=== PATIENT | male | born 1930 | race Caucasian/White ===

== ENCOUNTER 2017-01-30 12:02 | Inpatient (IN) | payer OTHER, BC ==
[2017-01-30] MEDS ORDERED: ASPIRIN 325 MG TABLET PO ONE (12:34)
[2017-01-30] MEDS ORDERED: NITROGLYCERIN SUBLINGUAL 1/200 0.3 MG BTL SL ONE (12:40)
--- NOTE | 2017-01-30 12:40 | PDOC ---
History of Present Illness <Francesca Khan - Last Filed: 01/30/17 14:03> <David Anna - Last Filed: 01/31/17 07:26> - General Chief Complaint: Chest Pain Stated Complaint: CHEST PAIN Time Seen by Provider: 01/30/17 12:20 - History of Present Illness Initial Comments: 01/30/17 12:53 The patient is a 87-year-old male with a significant past medical history of HTN , HLD, CAD s/p stents, atrial fibrillation, long QT s/p AICD, hypothyroidism, anemia, liver disease, and dementia, who presents to the emergency department from [facility] with chest pain this morning. He reports the chest pain started last night, but worsened today after having breakfast and taking his medications. He states the chest pain is located across the chest, non-radiating , and better with sitting. He states the pain is similar to pain he had with his prior cardiac caths. Pt denies any SOB, pain with inspiration, swelling in the LEs, or abdominal pain. Pt denies headache and dizziness. Pt denies fever, chills, vomit, diarrhea and constipation. Pt denies dysuria, frequency, urgency and hematuria. Allergies: penicillins, lactose Past Surgical History: stents and pacemaker Social History: No toxic habits reported Adult Ministries Director: Dr. Catalan ( David Anna) Past History <Francesca Khan - Last Filed: 01/30/17 14:03> - Past Medical History Anemia: Yes Asthma: No Cancer: No Cardiac Disorders: Yes (PACEMAKER, Afib,CAD) COPD: No CHF: (DIASTOLIC HEART FAILURE) Dementia: Yes Diabetes: No GI Disorders: No Disorders: Yes (BPH) HTN: Yes Hypercholesterolemia: Yes Liver Disease: Yes Seizures: No Thyroid Disease: Yes (hypothyroid) - Surgical History Abdominal Surgery: Yes Appendectomy: Yes Cardiac Surgery: Yes (PACEMAKER) - Suicide/Smoking/Psychosocial Hx Smoking Status: No Smoking History: Never smoked Have you smoked in the past 12 months: No Number of Cigarettes Smoked Daily: 0 If you are a former smoker, when did you quit?: 40 YEARS AGO Hx Alcohol Use: No Drug/Substance Use Hx: No Substance Use Type: None <David Anna - Last Filed: 01/31/17 07:26> - Past Medical History Allergies/Adverse Reactions: Allergies Allergy/AdvReac Type Severity Reaction Status Date / Time Penicillins Allergy Mild Rash Verified 01/30/17 12:12 lactose Allergy Unknown Verified 01/30/17 12:12 Home Medications: Ambulatory Orders Aspirin [Aspirin EC] 81 mg PO DAILY 01/30/17 Brimonidine Tartrate [Alphagan 0.15% -] 1 drop OD TID 01/30/17 Calcium Carb/Magnesium Hydrox [Rolaids Chewable Tablet] 2 each PO Q6H PRN Calcium Citrate/Vitamin D2 [Calcium with Vit D Tablet] 1 each PO BID 01/30/17 Cholecalciferol (Vitamin D3) [Vitamin D3] 50,000 unit PO MONTHLY 01/30/17 Dorzolamide HCl [Trusopt 2%] 1 drop OD DAILY 01/30/17 Latanoprost 0.005% Eye Drops [Xalatan 0.005% Eye Drops -] 1 drop HS 01/30/17 Levothyroxine [Synthroid -] 25 mcg PO DAILY 01/30/17 Metoprolol Succinate [Toprol Xl -] 25 mg PO DAILY 01/30/17 Mineral Oil/Hydrophil Petrolat [Dermaphor Ointment] 118 gm TP DAILY 01/30/17 Nut.tx.impaired Digest Fxn [Ensure Clear] 200 ml PO DAILY 01/30/17 RX: Acetaminophen 325 mg PO PRN PRN 01/30/17 RX: Ferrous Sulfate 325 mg PO BID 01/30/17 RX: Folic Acid 1 mg PO DAILY 01/30/17 RX: Furosemide 0 mg PO DAILY 01/30/17 RX: Pravastatin Sodium 10 mg PO HS 01/30/17 RX: Simethicone 125 mg PO Q6H PRN 01/30/17 RX: Tamsulosin HCl 0.4 mg PO HS 01/30/17 Cardiac Specific PMH - Complaint Specific PMHX Pacemaker: Yes <David Anna - Last Filed: 01/31/17 07:26> Review of Systems <Francesca Khan - Last Filed: 01/30/17 14:03> <David Anna - Last Filed: 01/31/17 07:26> - Review of Systems Comments:: 01/30/17 12:54 "GENERAL/CONSTITUTIONAL: No fever or chills. No weakness. HEAD, EYES, EARS, NOSE AND THROAT: No change in vision. No ear pain or discharge. No sore throat. CARDIOVASCULAR: (+) Chest pain. No shortness of breath. RESPIRATORY: No cough, wheezing, or hemoptysis. GASTROINTESTINAL: No nausea, vomiting, diarrhea or constipation. GENITOURINARY: No dysuria, frequency, or change in urination. MUSCULOSKELETAL: No joint or muscle swelling or pain. No neck or back pain. SKIN: No rash NEUROLOGIC: No headache, vertigo, loss of consciousness, or change in strength/ sensation. ENDOCRINE: No increased thirst. No abnormal weight change. HEMATOLOGIC/LYMPHATIC: No anemia, easy bleeding, or history of blood clots. ALLERGIC/IMMUNOLOGIC: No hives or skin allergy. " (David Anna) *Physical Exam <Francesca Khan - Last Filed: 01/30/17 14:03> <David Anna - Last Filed: 01/31/17 07:26> - Vital Signs Last Vital Signs Temp Pulse Resp BP Pulse Ox 97.5 F L 73 17 120/93 100 01/31/17 06:00 01/31/17 06:00 01/31/17 06:00 01/31/17 06:00 01/30/17 22:00 - Physical Exam Comments: 01/30/17 12:54 "GENERAL: Awake, alert, and fully oriented, in no acute distress HEAD: No signs of trauma EYES: PERRLA, EOMI, sclera anicteric, conjunctiva clear ENT: Auricles normal inspection, hearing grossly normal, nares patent, oropharynx clear without exudates. Moist mucosa NECK: Nontender, no stepoffs, Normal ROM, supple, no lymphadenopathy, JVD, or masses LUNGS: Breath sounds equal, clear to auscultation bilaterally. No wheezes, and no crackles HEART: Regular rate and rhythm, normal S1 and S2, systolic ejection murmur, rubs or gallops ABDOMEN: Soft, nontender, normoactive bowel sounds. No guarding, no rebound. No masses EXTREMITIES: Normal range of motion, no edema. No clubbing or cyanosis. No cords, erythema, or tenderness NEUROLOGICAL: Cranial nerves II through XII intact. 5/5 strength and sensation in all extremities, Normal speech, normal gait SKIN: Warm, Dry, normal turgor, no rashes or lesions noted. " (David Anna) Heart Score/ECG Review <Francesca Khan - Last Filed: 01/30/17 14:03> - History History: Highly suspicious - Electrocardiogram EKG: Non specific repolarization disturbance - Age Age: >/= 65 - Risk Factors Risk Factors Heart Score: Yes Hx Hypercholesterolemia, Yes Hx Hypertension Based on the list above the patient has:: >/=3 risk factors or Hx atherosclerotic disease <David Anna - Last Filed: 01/31/17 07:26> - ECG Impressions Comment:: 01/30/17 12:35 V-paced rhythm, no COOKIE/STDs, no TWIs, unchanged since prior, rate 70. (David Anna) ED Treatment Course - LABORATORY CBC & Chemistry Diagram: 01/30/17 12:25 01/30/17 12:25 <Francesca Khan - Last Filed: 01/30/17 14:03> - LABORATORY CBC & Chemistry Diagram: 01/31/17 06:00 01/31/17 06:00 <David Anna - Last Filed: 01/31/17 07:26> - ADDITIONAL ORDERS Additional order review: 01/30/17 12:25 RBC 3.87 L MCV 90.1 MCHC 32.7 RDW 17.0 H D MPV 9.8 Neutrophils % 67.1 Lymphocytes % 13.1 Monocytes % 8.3 Eosinophils % 7.3 H D Basophils % 4.2 H D - RADIOLOGY Radiology Studies Ordered: Category Date Time Status CHEST X-RAY PORTABLE* [RAD] Stat Radiology 01/30/17 12:18 Completed - Medications Given in the ED: ED Medications Discontinued Medications Generic Name Dose Route Start Last Admin Trade Name Mack PRN Reason Stop Dose Admin Aspirin 325 mg 01/30/17 12:34 01/30/17 12:51 Asa - PO 01/30/17 12:35 325 mg ONCE ONE Administration Folic Acid 1 mg 01/30/17 14:57 01/30/17 16:45 Folic Acid - PO 01/30/17 14:58 1 mg ONCE ONE Administration Nitroglycerin 0.3 mg 01/30/17 12:40 01/30/17 13:00 Nitrostat - SL 01/30/17 12:41 Not Given ONCE ONE Nitroglycerin 0.4 mg 01/30/17 12:52 01/30/17 12:59 Nitrostat - SL 01/30/17 12:53 0.4 mg ONCE ONE Administration Medical Decision Making <Francesca Khan - Last Filed: 01/30/17 14:03> <David Anna - Last Filed: 01/31/17 07:26> - Medical Decision Making 01/30/17 13:30 Dr. Morejon was paged at 1:22pm. 01/30/17 14:03 Dr. Morejon called back and case was discussed. (Francesca Khan) 01/30/17 12:38 87 M with h/o CAD presenting with chest pain at rest, concerning for unstable angina/restenosis of stent. Pt with unchanged EKG (V-paced). No evidence of PE/ DVT on exam. No infectious symptoms to suggest PNA. No s/s volume overload/CHF. - Labs, trop - CXR - Aspirin - Cardiology consult, admit 01/30/17 13:[address] Newton, wine steward/stewardess covering for Dr. Catalan, who agrees with plan to admit to hospitalist on tele. 01/30/17 13:[address] Morejon, who has accepted pt. Will admit to inpatient tele. Case discussed in detail with admitting physician including history, physical exam and ancillary studies. Admitting physician has assumed care for the patient and will follow all pending diagnostics and complete the evaluation and treatment. (David Anna) *DC/Admit/Observation/Transfer <Francesca Khan - Last Filed: 01/30/17 14:03> - Discharge Dispostion Admit: Yes <David Anna - Last Filed: 01/31/17 07:26> Diagnosis at time of Disposition: Chest pain - Attestations Scribe Attestion: 01/30/17 13:25 Documentation prepared by Francesca Khan, acting as medical record librarians teacher for David Anna MD. (Francesca Khan) Physician Attestion: 01/31/17 07:26 I, Dr. David Anna MD, attest that this document has been prepared under my direction and personally reviewed by me in its entirety. I further attest, that it accurately reflects all work, treatment, procedures and medical decision -making performed by me. (David Anna)
[2017-01-30] MEDS ORDERED: ASPIRIN 325 MG TABLET ONE (12:41)
[2017-01-30 12:43] LABS: MCH 29.5 pg (25.7-33.7); MCHC 32.7 g/dl (32.0-35.9); MEAN CELL VOLUME 90.1 fl (80-96); MEAN PLT VOLUME 9.8 fl (7.5-11.1); PLATELET COUNT 193 K/MM3 (134-434); WHITE BLOOD COUNT 8.4 K/mm3 (4.0-10.0)
[2017-01-30] MEDS ORDERED: NITROGLYCERIN SUBLINGUAL 1/150 0.4 MG TAB ONE (12:51)
[2017-01-30] MEDS ORDERED: NITROGLYCERIN SUBLINGUAL 1/150 0.4 MG TAB SL ONE (12:52)
[2017-01-30 12:55] LABS: ALBUMIN 3.8 g/dl (3.4-5.0); ANION GAP 10 (8-16); BILIRUBIN,TOTAL 3.7 mg/dL (0.2-1.0); CALCIUM 8.8 mg/dL (8.5-10.1); CO2 28 mmol/L (21-32); CREATININE 0.9 mg/dL (0.7-1.3); GLUCOSE,RANDOM 114 mg/dL (74-106); INR 1.25 (0.82-1.09); PROTHROMBIN TIME (PATIENT) 13.8 SEC (9.98-11.88); SGPT/ALT 55 U/L (12-78); TOT PROT 7.6 g/dl (6.4-8.2)
[2017-01-30 12:57] LABS: ACTIVATED PTT 31.8 SECONDS (26.9-34.4); ALK PHOS 116 U/L (45-117); TROPONIN I < 0.02 ng/ml (0.00-0.05)
[2017-01-30 12:58] LABS: CPK 95 IU/L (39-308); SGOT/AST 120 U/L (15-37)
[2017-01-30 13:10] LABS: BASOPHIL 4.2 % (0-2.0); EOSINOPHIL 7.3 % (0-4.5); NEUTROPHILS 67.1 % (42.8-82.8)
--- NOTE | 2017-01-30 14:20 | HP ---
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 He reports the chest pain started last night, but worsened today after having breakfast and taking his medications. He states the chest pain is located across the chest, non-radiating, and better with sitting. He states the pain is similar to pain he had with his prior cardiac caths. Pt denies any SOB, pain with inspiration, swelling in the LEs, or abdominal pain. Pt denies headache and dizziness. Pt denies fever, chills, vomit, diarrhea and constipation. Pt denies dysuria, frequency, urgency and hematuria. Patient well known to Dr Catalan. Allergies: penicillins, lactose Past Surgical History: stents and pacemaker Social History: No toxic habits reported Configuration Management Administrator: Dr. 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: Dementia Cardiovascular: Yes: AFIB, Aortic Insufficiency, Aortic Stenosis, CAD, CHF, HTN Pulmonary: Yes: Other (pulmonary HTN) Hepatobiliary: Yes: Other (gilbert's syndrom) Renal/: Yes: BPH Heme/Onc: Yes: Anemia, Bleeding Disorder Endocrine: Yes: Hypothyroidism - Past Surgical History Past Surgical History: Yes: AICD - Advance Directives Advance Directives: Yes: Health Care Proxy - Smoking History Smoking history: Never smoked Have you smoked in the past 12 months: No Aproximately how many cigarettes per day: 0 If you are a former smoker, when did you quit?: 40 YEARS AGO - Alcohol/Substance Use Hx Alcohol Use: No History of Substance Use: reports: None - Social History Usual Living Arrangement: Yes: Assisted Living ADL: Support Services History of Recent Travel: No Home Medications - Allergies Allergies/Adverse Reactions: Allergies Allergy/AdvReac Type Severity Reaction Status Date / Time Penicillins Allergy Mild Rash Verified 01/30/17 12:12 lactose Allergy Unknown Verified 01/30/17 12:12 - Home Medications Home Medications: Ambulatory Orders Acetaminophen 325 mg PO PRN PRN 01/30/17 Aspirin [Aspirin EC] 81 mg PO DAILY 01/30/17 Brimonidine Tartrate [Alphagan 0.15% -] 1 drop OD TID 01/30/17 Calcium Carb/Magnesium Hydrox [Rolaids Chewable Tablet] 2 each PO Q6H PRN Calcium Citrate/Vitamin D2 [Calcium with Vit D Tablet] 1 each PO BID 01/30/17 Cholecalciferol (Vitamin D3) [Vitamin D3] 50,000 unit PO MONTHLY 01/30/17 Dorzolamide HCl [Trusopt 2%] 1 drop OD DAILY 01/30/17 Ferrous Sulfate 325 mg PO BID 01/30/17 Folic Acid 1 mg PO DAILY 01/30/17 Furosemide 0 mg PO DAILY 01/30/17 Latanoprost 0.005% Eye Drops [Xalatan 0.005% Eye Drops -] 1 drop HS 01/30/17 Levothyroxine [Synthroid -] 25 mcg PO DAILY 01/30/17 Metoprolol Succinate [Toprol Xl -] 25 mg PO DAILY 01/30/17 Mineral Oil/Hydrophil Petrolat [Dermaphor Ointment] 118 gm TP DAILY 01/30/17 Nut.tx.impaired Digest Fxn [Ensure Clear] 200 ml PO DAILY 01/30/17 Pravastatin Sodium 10 mg PO HS 01/30/17 Simethicone 125 mg PO Q6H PRN 01/30/17 Tamsulosin HCl 0.4 mg PO HS 01/30/17 Review of Systems - Review of Systems Constitutional: reports: No Symptoms Eyes: reports: No Symptoms HENT: reports: No Symptoms Neck: reports: No Symptoms Cardiovascular: reports: Chest Pain Respiratory: reports: Exercise Intolerance Gastrointestinal: reports: No Symptoms Genitourinary: reports: No Symptoms Breasts: reports: No Symptoms Reported Integumentary: reports: No Symptoms Neurological: reports: Pre-Existing Deficit Hematology/Lymphatic: reports: Easily Bruised, Other (intermittent Jaundice) Physical Examination Vital Signs: Vital Signs Temperature 97.5 F L 01/30/17 13:41 Pulse Rate 71 01/30/17 13:41 Respiratory Rate 18 01/30/17 13:41 Blood Pressure 118/74 01/30/17 13:41 O2 Sat by Pulse Oximetry (%) 100 01/30/17 13:41 Constitutional: Yes: Well Nourished, No Distress, Calm, Other (fragile) Eyes: Yes: WNL HENT: Yes: WNL, Atraumatic, Normocephalic Neck: Yes: Supple, Trachea Midline Cardiovascular: Yes: Regular Rate and Rhythm, Murmur Respiratory: Yes: Regular, CTA Bilaterally Gastrointestinal: Yes: WNL, Normal Bowel Sounds, Soft Renal/: Yes: WNL Breast(s): Yes: WNL Musculoskeletal: Yes: WNL Extremities: Yes: WNL Edema: No Peripheral Pulses WNL: Yes Integumentary: Yes: WNL Neurological: Yes: Alert, Oriented, Pre-Existing Deficit Labs: CBC, BMP 01/30/17 12:25 01/30/17 12:25 Problem List - Problems (1) Chest pain Code(s): R07.9 - CHEST PAIN, UNSPECIFIED (2) CAD (coronary artery disease) Code(s): I25.10 - ATHSCL HEART DISEASE OF [place] CORONARY ARTERY W/O ANG PCTRS (3) Atrial fibrillation Code(s): I48.91 - UNSPECIFIED ATRIAL FIBRILLATION Qualifiers: Atrial fibrillation type: chronic Qualified Code(s): I48.2 - Chronic atrial fibrillation; I48.2 - Chronic atrial fibrillation; I48.2 - Chronic atrial fibrillation; I48.2 - Chronic atrial fibrillation (4) HTN (hypertension) Code(s): I10 - ESSENTIAL (PRIMARY) HYPERTENSION (5) Anemia Code(s): D64.9 - ANEMIA, UNSPECIFIED (6) Gilbert disease Code(s): E80.4 - GILBERT SYNDROME (7) Hypothyroid Code(s): E03.9 - HYPOTHYROIDISM, UNSPECIFIED (8) BPH (benign prostatic hypertrophy) Code(s): N40.0 - BENIGN PROSTATIC HYPERPLASIA WITHOUT LOWER URINRY TRACT SYMP Assessment/Plan 87 yo with h/o HTN, HLD, CAD s/p angioplasty/mLAD stent with residual disease, atrial fibrillation, long QT with VT s/p AICD, moderate AR, moderate , moderate mr, HFpEF, phtn on O2, hypothyroidism, 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 # CP - h/o cad s/p angiplasty LAD stent, phtn, valvular/diastolic hf- . . - per cardiology - out pt lasix increased to 40 daily alternating with 80 daily, unclear if compliant. - will give trial of lasix 40 mg IV - has residual ISR of RCA and residual LAD disease that has been medically managed. - No signs of ACS. CE's neg x 2 (01/30 and 01/31). EKG paced # HFpEF with superimposed valvular disease and phtn (mod /AR/MR) - diuresis as above. - daily weights, i/o's, bmp # abn LFT -h/o Gilbert's persistent tbili > 2 -possible added elevation due to passive congestion / statins -hold Statin -follow lfts # afib - h/o bleeding epistaxis - rate controlled -continue asa / well tolerated #htn - controlled on current meds ?? - monitor and may need med adjustment #anemia - h/o hemolytic anemia - thrombocytopenia - stable --- followed at [facility] Heme/Onc # hypokalemia /eletrolye depletion - h/o prolonged qt s/p AICD - keep K > 4 - keep Mg >2 # hypothyroid - on synthroid - ck TSH
[2017-01-30] MEDS ORDERED: ACETAMINOPHEN 325 MG TABLET (FP) PO PRN (14:45)
[2017-01-30] MEDS ORDERED: FOLIC ACID 1 MG TABLET (FP) PO ONE (14:57)
[2017-01-30] MEDS ORDERED: SIMETHICONE 80 MG TAB.CHEW (FP) PO PRN (14:58)
[2017-01-30] MEDS ORDERED: NITROGLYCERIN SUBLINGUAL 1/150 0.4 MG TAB SL PRN (15:05)
[2017-01-30] MEDS ORDERED: FOLIC ACID 1 MG TABLET (FP) ONE (16:43)
[2017-01-30 18:22] VITALS: BMI 20.9
--- NOTE | 2017-01-30 18:35 | EKG ---
Test Reason : Blood Pressure : / mmHG Vent. Rate : 070 BPM Atrial Rate : 074 BPM P-R Int : 000 ms QRS Dur : 192 ms QT Int : 494 ms P-R-T Axes : 000 -79 087 degrees QTc Int : 533 ms Ventricular-paced rhythm ABNORMAL ECG WHEN COMPARED WITH ECG OF 28-JAN-2015 19:55, ELECTRONIC VENTRICULAR PACEMAKER HAS REPLACED ATRIAL FIBRILLATION CLINICAL CORRELATION IS RECOMMENDED Confirmed by CASEY MOISE MD ([id number]) on 01/30/2017 6:35:20 PM Referred By: Confirmed By:CASEY MOISE MD
[2017-01-30] MEDS: BRIMONIDINE TARTRATE 0.15% OPHTHALMIC 5 ML BOTTLE OU SCH (21:41)
[2017-01-30] MEDS: DOCUSATE SODIUM 100 MG CAPSULE (FP) PO SCH (21:41)
[2017-01-30] MEDS: FERROUS SO4 325 MG TABLET (FP) PO SCH (21:41)
[2017-01-30] MEDS: LATANOPROST 0.005% OPHTH SOLN 2.5ML BOTTLE OU SCH (21:42)
[2017-01-30] MEDS ORDERED: ATORVASTATIN CA 10 MG TABLET (FP) PO SCH (22:00)
[2017-01-31 06:12] LABS: BASOPHIL 1.5 % (0-2.0); EOSINOPHIL 5.1 % (0-4.5); MCH 29.7 pg (25.7-33.7); MCHC 33.4 g/dl (32.0-35.9); MEAN CELL VOLUME 88.8 fl (80-96); MEAN PLT VOLUME 8.6 fl (7.5-11.1); NEUTROPHILS 67.9 % (42.8-82.8); PLATELET COUNT 122 K/MM3 (134-434); WHITE BLOOD COUNT 8.7 K/mm3 (4.0-10.0)
[2017-01-31] MEDS: BRIMONIDINE TARTRATE 0.15% OPHTHALMIC 5 ML BOTTLE OU SCH ×3 (06:15→22:27)
[2017-01-31 06:41] LABS: ALBUMIN 3.5 g/dl (3.4-5.0); ALK PHOS 156 U/L (45-117); ANION GAP 9 (8-16); CALCIUM 8.5 mg/dL (8.5-10.1); CHOLESTEROL 101 mg/dL (50-200); CO2 27 mmol/L (21-32); CPK 34 IU/L (39-308); CREATININE 0.8 mg/dL (0.7-1.3); GLUCOSE,RANDOM 100 mg/dL (74-106); MAGNESIUM 2.1 mg/dL (1.8-2.4); SGOT/AST 165 U/L (15-37); SGPT/ALT 157 U/L (12-78); TROPONIN I 0.02 ng/ml (0.00-0.05)
[2017-01-31] MEDS: LEVOTHYROXINE NA 25 MCG TABLET (FP) PO SCH (07:28)
[2017-01-31] MEDS: FOLIC ACID 1 MG TABLET (FP) PO SCH (09:32)
[2017-01-31] MEDS: DOCUSATE SODIUM 100 MG CAPSULE (FP) PO SCH ×2 (09:32→22:27)
[2017-01-31] MEDS: ASPIRIN COATED 81 MG TABLET.EC PO SCH (09:32)
[2017-01-31] MEDS: FERROUS SO4 325 MG TABLET (FP) PO SCH ×2 (09:32→22:27)
[2017-01-31] MEDS: TAMSULOSIN HCL 0.4 MG CAP.ER.24H (FP) PO SCH (09:32)
[2017-01-31] MEDS: METOPROLOL SUCCINATE 25 MG TAB.SR.24H (FP) PO SCH (09:32)
[2017-01-31] MEDS: DORZOLAMIDE 2% HCL OPHTHALMIC SOLUTION 10 ML BOTTLE OU SCH (09:33)
[2017-01-31] MEDS ORDERED: FUROSEMIDE 20 MG TABLET (FP) PO SCH (10:00)
--- NOTE | 2017-01-31 11:07 | CON.CARD ---
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 States he intermittently gets this chest discomfort and it lasts a few minutes. For the past two days has occurred with increasing frequency (3 times in one day). Central CP, non-radiating, non-pleuritic. No associated symptoms. Pt denies any SOB, LE edema, orthopnea, palps, dizziness, bleeding, transient neurologic symptoms. Dr. Catalan recently (2-3 weeks ago) increased his lasix to 40 mg daily alternating with 80mg daily. However it is unclear that he is taking these doses. Is still either taking 40 mg daily or 20 mg daily. curretnly cp free. Denies abdominal pain, headache, dizziness, fever, chills, sweats, nausea, vomit, diarrhea, rashes, visual disturbances. Security Rep: Dr. Catalan PMHx: per hpi Past Surgical History: per hpi Social History: former smoker, lives in assisted living. fam hx: no family h/o premature cad. ros: per hpi Ambulatory Orders Acetaminophen 325 mg PO PRN PRN 01/30/17 Aspirin [Aspirin EC] 81 mg PO DAILY 01/30/17 Brimonidine Tartrate [Alphagan 0.15% -] 1 drop OD TID 01/30/17 Calcium Carb/Magnesium Hydrox [Rolaids Chewable Tablet] 2 each PO Q6H PRN Calcium Citrate/Vitamin D2 [Calcium with Vit D Tablet] 1 each PO BID 01/30/17 Cholecalciferol (Vitamin D3) [Vitamin D3] 50,000 unit PO MONTHLY 01/30/17 Dorzolamide HCl [Trusopt 2%] 1 drop OD DAILY 01/30/17 Ferrous Sulfate 325 mg PO BID 01/30/17 Folic Acid 1 mg PO DAILY 01/30/17 Furosemide 0 mg PO DAILY 01/30/17 Latanoprost 0.005% Eye Drops [Xalatan 0.005% Eye Drops -] 1 drop HS 01/30/17 Levothyroxine [Synthroid -] 25 mcg PO DAILY 01/30/17 Metoprolol Succinate [Toprol Xl -] 25 mg PO DAILY 01/30/17 Mineral Oil/Hydrophil Petrolat [Dermaphor Ointment] 118 gm TP DAILY 01/30/17 Nut.tx.impaired Digest Fxn [Ensure Clear] 200 ml PO DAILY 01/30/17 Pravastatin Sodium 10 mg PO HS 01/30/17 Simethicone 125 mg PO Q6H PRN 01/30/17 Tamsulosin HCl 0.4 mg PO HS 01/30/17 Current Medications Acetaminophen (Tylenol -) 650 mg PO Q6H PRN PRN Reason: FEVER OR PAIN Aspirin (Ecotrin -) 81 mg PO DAILY [facility] Last Admin: 01/31/17 09:32 Dose: 81 mg Atorvastatin Calcium (Lipitor -) 10 mg PO HS [facility] Last Admin: 01/30/17 21:41 Dose: 10 mg Brimonidine Tartrate (Alphagan 0.15% -) 1 drop OU TID [facility] Last Admin: 01/31/17 06:15 Dose: 1 drop Docusate Sodium (Colace -) 100 mg PO BID [facility] Last Admin: 01/31/17 09:32 Dose: 100 mg Dorzolamide HCl (Trusopt 2%) 1 drop OU DAILY [facility] Stop: 02/02/17 23:59 Last Admin: 01/31/17 09:33 Dose: 1 drop Ferrous Sulfate (Feosol -) 325 mg PO BID [facility] Last Admin: 01/31/17 09:32 Dose: 325 mg Folic Acid (Folic Acid -) 1 mg PO DAILY [facility] Last Admin: 01/31/17 09:32 Dose: 1 mg Furosemide (Lasix -) 20 mg PO DAILY [facility] Last Admin: 01/31/17 09:32 Dose: 20 mg Latanoprost (Xalatan 0.005% Eye Drops -) 1 drop OU HS [facility] Stop: 02/02/17 23:59 Last Admin: 01/30/17 21:42 Dose: 1 drop Levothyroxine Sodium (Synthroid -) 25 mcg PO DAILY@0700 [facility] Last Admin: 01/31/17 07:28 Dose: 25 mcg Metoprolol Succinate (Toprol Xl -) 25 mg PO DAILY [facility] Last Admin: 01/31/17 09:32 Dose: 25 mg Nitroglycerin (Nitrostat -) 0.4 mg SL Q5M PRN PRN Reason: FOR CHEST PAIN Simethicone (Mylicon -) 80 mg PO Q4H PRN PRN Reason: GAS Tamsulosin HCl (Flomax -) 0.4 mg PO DAILY@0830 [facility] Last Admin: 01/31/17 09:32 Dose: 0.4 mg Vital Signs - 24 hr 01/30/17 01/30/17 01/30/17 12:12 12:15 13:41 Temperature 97.5 F L 97.5 F L Pulse Rate 77 Pulse Rate [ 71 Apical] Respiratory 18 18 Rate Blood Pressure 138/88 Blood Pressure 118/74 [Right Arm] O2 Sat by Pulse 98 100 100 Oximetry (%) 01/30/17 01/30/17 01/30/17 13:57 17:31 21:00 Temperature 98.4 F 97.6 F Pulse Rate 74 70 Pulse Rate [ 70 Apical] Respiratory 18 18 18 Rate Blood Pressure 141/86 131/93 Blood Pressure 118/68 [Right Arm] O2 Sat by Pulse 100 97 Oximetry (%) 01/30/17 01/31/17 01/31/17 22:00 01:00 06:00 Temperature 97.5 F L Pulse Rate 71 73 Pulse Rate [ Apical] Respiratory 20 18 17 Rate Blood Pressure 160/96 155/83 120/93 Blood Pressure [Right Arm] O2 Sat by Pulse 100 Oximetry (%) 01/31/17 01/31/17 08:30 10:00 Temperature 97.8 F Pulse Rate 70 Pulse Rate [ Apical] Respiratory 16 Rate Blood Pressure 111/69 Blood Pressure [Right Arm] O2 Sat by Pulse 99 Oximetry (%) Intake & Output 01/29/17 01/30/17 01/31/17 02/01/17 07:59 07:59 07:59 07:59 Intake Total 120 Output Total 600 600 Balance -480 -600 Weight 139 lb 11.2 oz nad, calm jvd elevated, neck supple bibasilar rales, nl effort rrr nl s1, s2 2/6 murmur throughout precordium and at apex. + bs soft nt nd ext without e/c/c + dp/pt no carotid bruits aaox3 no jaundice, diaphoresis. CBC, BMP 01/31/17 06:00 01/31/17 06:00 Laboratory Tests 01/30/17 01/31/17 12:25 06:00 Troponin I < 0.02 0.02 Albumin 3.5 ekg: v-paced tele: v-paced with ectopy. cxr 01/30: rul scarring. no acute pathology (by my review, likely congestion) cxr 01/31: by my review. - worsened congestion with fluid in fissure and likely effusions with blunting of costophrenic angle. LHC 12/06 no LMCA dz; 30-50% pLAD. 80-90% mLAD, calcified; 70-80% oRCA, calcified; mild OM1; s/p xience to mLAD (no intervention on RCA). mild AI LHC 09/05 ([facility]): 90% mLAD, 80% oRCA, 50% LCX and mRCA; severe LV dysfunction; s/p PTCA/cutting balloon angioplasty to LAD and RCA MIBI 12/06 (): persantine--no STs; small area anteroapical isch; fixed IW with small area inferoapical reversibility--? isch; NORMAL EF Echo 04/2016: 1. The left ventricular size is normal. 2. Overall left ventricular systolic function is low-normal with, an EF between 50 - 55 %. 3. No regional wall motion abnormalities were noted. 4. The right ventricle is moderately enlarged. 5. The right ventricular systolic function is at the low end of normal. 6. Left atrium is moderately dilated by volume. 7. The right atrium is mildly enlarged. 8. Electronic pacemaker lead seen in the RA and RV cavities. The RA pacemaker wire is highly mobile, with possible mobile echodensity adherent to it. This structure is potentially consistent with fibrinous strand but vegetation cannot be excluded. 9. Aortic valve is severely thickened. 10. There is mild aortic regurgitation. 11. Moderate aortic stenosis. 12. Moderate mitral regurgitation is present, eccentric jet (anteriorly directed ); possibly 2 jets. 13. Moderate tricuspid regurgitation present. 14. There is severe pulmonary hypertension. 15. The right ventricular systolic pressure, as measured by Doppler, is at least 91 mmHg, assuming RA pressure of 7 mmHg (TR signal is cut off). 16. The aortic root is mildy dilated (4.1cm). Laminar, non-complex (< 4mm), atherosclerotic plaque(s) located in the aortic arch. 17. Normal inferior vena cava with less than 50% inspiratory collapse consistent with mildly estimated right atrial pressure (approximately 10 mmHg). A/P 87 yo with h/o HTN, HLD, CAD s/p angioplasty/mLAD stent with residual disease, atrial fibrillation, long QT with VT s/p AICD, moderate AR, moderate , moderate mr, HFpEF, phtn on O2, hypothyroidism, hemolytic anemia (followed at [facility] for Hem), elevated bili due to [place]', thrombocytopenia, bph and mild dementia who p/w CP. CP - h/o cad, phtn, valvular/diastolic heart failure - which all may be contributing to chest discomfort. . - Recently outpatient lasix increased to 40 daily alternating with 80 daily, unclear if patient made these changes. Appears volume overloaded, will give trial of lasix 40 mg IV x 1 and reevaluate in am. May need uptitration to bid dosing. new lft abnormalities may be due to hepatic congestion, reevaluate in am. Note, tbili elevated > 3.0 even on last sjr labs (2014) potassium repletion - has residual ISR of RCA and residual LAD disease that has been medically managed. No signs of ACS. CE's neg x 2 (01/30 and 01/31). EKG Vpaced. uptitration of anti-anginals has been limited by low blood pressures in the past. Would avoid ranexa b/c of qt prolongation potential. Will try low dose norvasc with close monitoring of bp's. HFpEF with superimposed valvular disease and phtn (mod /AR/MR) - diuresis as above. 134 lbs at last office visit when euvolemic. - bp/hr well controlled. - Can defer repeat echo if clinical status improves. - daily standing weights, i/o's, bmp CAD s/p angioplasty/mLAD stent with residual disease - -residual dz: 70-80% ostial RCA (deferred due to pt with acute agitation during cath); 30-50% pLAD - con't asa, uptitration of anti-anginals as above. - on pravastatin 10 mg on 5 days a week. In light of acute lft elevation, hold for now and resume when improving. PMVT/torsades--? h/o long QT prior (? culprit meds); QT was profoundly prolonged (>600 msec) on presentation; s/p ICD, no shocks; - last ICD check 09/2016, LRL likely 70. con't outpatient monitoring. - aggressive lyte repletion, K > 4.0, mg > 2.0. avoid qt prolonging drugs. Afib - no h/o CVA/TIA; not a candidate for AC due to recurrent epistaxis, on ASA - currently rate controlled on low dose metoprolol HTN - can be labile, meds as above. close monitoring. mod dil ao root (4.1cm) - con't bb thrombocytopenia/anemia - stable, con't to monitor
[2017-01-31] MEDS ORDERED: POTASSIUM CHLORIDE TABS 20 MEQ TABLET.ER (FP) PO ONE ×2 (11:45→16:18)
--- NOTE | 2017-01-31 15:25 | EKG ---
Test Reason : Blood Pressure : / mmHG Vent. Rate : 070 BPM Atrial Rate : 052 BPM P-R Int : 000 ms QRS Dur : 188 ms QT Int : 494 ms P-R-T Axes : 000 -82 070 degrees QTc Int : 533 ms Ventricular-paced rhythm ABNORMAL ECG WHEN COMPARED WITH ECG OF 30-JAN-2017 12:07, NO SIGNIFICANT CHANGE WAS FOUND Confirmed by CASEY MOISE MD ([id number]) on 01/31/2017 3:25:06 PM Referred By: Augustin OLEARY Confirmed By:CASEY MOISE MD
[2017-01-31] MEDS ORDERED: FUROSEMIDE 40 MG/4 ML INJECTABLE VIAL IVPUSH ONE (16:16)
[2017-01-31] MEDS ORDERED: PT OWN MED DRAWER 7, Y5N ONE ×2 (22:23→22:35)
[2017-01-31] MEDS: LATANOPROST 0.005% OPHTH SOLN 2.5ML BOTTLE OU SCH (22:29)
--- NOTE | 2017-01-31 22:52 | PN ---
Progress Note (short form) - Note Progress Note: patient seen and examined in bed. States CP resolved, denies SOB / diaphoresis / reports pain lasted many hours -- started day prior to admission and resolved late yesterday - unable to provide time or treatment responsible for alleviation of cp. Today reports feeling well - no cp or sob O2 in place Vital Signs Period Temp Pulse Resp BP Sys/Fox Pulse Ox Last 24 Hr 97.5 F-98.9 F 70-73 16-18 111-155/66-107 98-99 NAD / mild jaundice neck supple heart S1/S2 regular lungs clear bilat abd soft non tender ext DVT boots in place no edema / no cyanosis CBC, BMP 01/31/17 06:00 01/31/17 06:00 Intake & Output 01/28/17 01/29/17 01/30/17 01/31/17 23:59 23:59 23:59 23:59 Intake Total 370 Output Total 300 1150 Balance -300 -780 Weight 141 lb 7 oz 139 lb 11.2 oz Active Medications Acetaminophen (Tylenol -) 650 mg PO Q6H PRN PRN Reason: FEVER OR PAIN Amlodipine Besylate (Norvasc -) 2.5 mg PO DAILY [facility] Aspirin (Ecotrin -) 81 mg PO DAILY [facility] Last Admin: 01/31/17 09:32 Dose: 81 mg Brimonidine Tartrate (Alphagan 0.15% -) 1 drop OU TID [facility] Last Admin: 01/31/17 14:20 Dose: 1 drop Docusate Sodium (Colace -) 100 mg PO BID [facility] Last Admin: 01/31/17 09:32 Dose: 100 mg Dorzolamide HCl (Trusopt 2%) 1 drop OU DAILY [facility] Stop: 02/02/17 23:59 Last Admin: 01/31/17 09:33 Dose: 1 drop Ferrous Sulfate (Feosol -) 325 mg PO BID [facility] Last Admin: 01/31/17 09:32 Dose: 325 mg Folic Acid (Folic Acid -) 1 mg PO DAILY [facility] Last Admin: 01/31/17 09:32 Dose: 1 mg Furosemide (Lasix Injection -) 40 mg IVPUSH DAILY [facility] Latanoprost (Xalatan 0.005% Eye Drops -) 1 drop OU HS [facility] Stop: 02/02/17 23:59 Last Admin: 01/30/17 21:42 Dose: 1 drop Levothyroxine Sodium (Synthroid -) 25 mcg PO DAILY@0700 [facility] Last Admin: 01/31/17 07:28 Dose: 25 mcg Metoprolol Succinate (Toprol Xl -) 25 mg PO DAILY [facility] Last Admin: 01/31/17 09:32 Dose: 25 mg Nitroglycerin (Nitrostat -) 0.4 mg SL Q5M PRN PRN Reason: FOR CHEST PAIN Simethicone (Mylicon -) 80 mg PO Q4H PRN PRN Reason: GAS Tamsulosin HCl (Flomax -) 0.4 mg PO DAILY@0830 [facility] Last Admin: 01/31/17 09:32 Dose: 0.4 mg 87 yo with h/o HTN, HLD, CAD s/p angioplasty/mLAD stent with residual disease, atrial fibrillation, long QT with VT s/p AICD, moderate AR, moderate , moderate mr, HFpEF, phtn on O2, hypothyroidism, hemolytic anemia (followed at [facility] for Hem), elevated bili due to [place]', thrombocytopenia, bph and mild dementia who p/w CP. # CP - h/o cad s/p angiplasty LAD stent, phtn, valvular/diastolic hf- . . - per cardiology - out patient lasix increased to 40 daily alternating with 80 daily, unclear if compliant. - given trial of lasix 40 mg IV x 1 today - has residual ISR of RCA and residual LAD disease that has been medically managed. - No signs of ACS. CE's neg x 2 (01/30 and 01/31). EKG paced # HFpEF with superimposed valvular disease and phtn (mod /AR/MR) - diuresis as above. - daily weights, i/o's, bmp # abn LFT -h/o Gilbert's persistent tbili > 2 -possible added elevation due to passive congestion / statins -hold Statin -follow lfts # afib - h/o bleeding epistaxis - rate controlled -continue asa / well tolerated #htn - controlled on current meds ?? - monitor and may need med adjustment #anemia - h/o hemolytic anemia - thrombocytopenia - stable --- followed at [facility] # hypokalemia /eletrolye depletion - h/o prolonged qt s/p AICD - keep K > 4 - keep Mg >2 # hypothyroid - on synthroid - ck TSH Problem List - Problems (1) Chest pain Code(s): R07.9 - CHEST PAIN, UNSPECIFIED (2) CAD (coronary artery disease) Code(s): I25.10 - ATHSCL HEART DISEASE OF [place] CORONARY ARTERY W/O ANG PCTRS (3) HTN (hypertension) Code(s): I10 - ESSENTIAL (PRIMARY) HYPERTENSION (4) Atrial fibrillation Code(s): I48.91 - UNSPECIFIED ATRIAL FIBRILLATION Qualifiers: Atrial fibrillation type: chronic Qualified Code(s): I48.2 - Chronic atrial fibrillation; I48.2 - Chronic atrial fibrillation; I48.2 - Chronic atrial fibrillation; I48.2 - Chronic atrial fibrillation (5) BPH (benign prostatic hypertrophy) Code(s): N40.0 - BENIGN PROSTATIC HYPERPLASIA WITHOUT LOWER URINRY TRACT SYMP (6) Anemia Code(s): D64.9 - ANEMIA, UNSPECIFIED (7) Gilbert disease Code(s): E80.4 - GILBERT SYNDROME (8) Hypothyroid Code(s): E03.9 - HYPOTHYROIDISM, UNSPECIFIED
[2017-02-01 05:57] LABS: MCH 29.5 pg (25.7-33.7); MCHC 32.8 g/dl (32.0-35.9); MEAN CELL VOLUME 90.1 fl (80-96); MEAN PLT VOLUME 9.6 fl (7.5-11.1); PLATELET COUNT 126 K/MM3 (134-434); RDW 16.9 % (11.9-15.9); WHITE BLOOD COUNT 9.5 K/mm3 (4.0-10.0)
[2017-02-01] MEDS ORDERED: PT OWN MED DRAWER 7, Y5N ONE ×5 (06:34→22:14)
[2017-02-01] MEDS: LEVOTHYROXINE NA 25 MCG TABLET (FP) PO SCH (06:36)
[2017-02-01] MEDS: BRIMONIDINE TARTRATE 0.15% OPHTHALMIC 5 ML BOTTLE OU SCH ×3 (06:36→22:16)
[2017-02-01 06:40] LABS: ANION GAP 8 (8-16); CALCIUM 8.6 mg/dL (8.5-10.1); CO2 28 mmol/L (21-32); CREATININE 0.9 mg/dL (0.7-1.3); GLUCOSE,RANDOM 96 mg/dL (74-106); MAGNESIUM 2.1 mg/dL (1.8-2.4)
[2017-02-01 06:49] LABS: THYROID STIMULATING HORMONE 2.48 uIU/ml (0.358-3.74)
[2017-02-01] MEDS: TAMSULOSIN HCL 0.4 MG CAP.ER.24H (FP) PO SCH (07:48)
[2017-02-01] MEDS: FERROUS SO4 325 MG TABLET (FP) PO SCH ×2 (09:49→22:16)
[2017-02-01] MEDS: FOLIC ACID 1 MG TABLET (FP) PO SCH (09:49)
[2017-02-01] MEDS: ASPIRIN COATED 81 MG TABLET.EC PO SCH (09:49)
[2017-02-01] MEDS: DOCUSATE SODIUM 100 MG CAPSULE (FP) PO SCH ×2 (09:49→22:16)
[2017-02-01] MEDS: METOPROLOL SUCCINATE 25 MG TAB.SR.24H (FP) PO SCH (09:49)
[2017-02-01] MEDS: DORZOLAMIDE 2% HCL OPHTHALMIC SOLUTION 10 ML BOTTLE OU SCH (09:49)
[2017-02-01] MEDS ORDERED: FUROSEMIDE 40 MG/4 ML INJECTABLE VIAL IVPUSH SCH (10:00)
[2017-02-01] MEDS ORDERED: amLODIPine BESYLATE 2.5 MG TABLET (FP) PO SCH (10:00)
[2017-02-01 11:05] LABS: ALBUMIN 3.8 g/dl (3.4-5.0); ALK PHOS 179 U/L (45-117); BILIRUBIN,DIRECT 0.5 mg/dL (0.0-0.2); BILIRUBIN,TOTAL 5.4 mg/dL (0.2-1.0); SGOT/AST 107 U/L (15-37); SGPT/ALT 134 U/L (12-78); TOT PROT 7.3 g/dl (6.4-8.2)
--- NOTE | 2017-02-01 11:44 | PN ---
Progress Note (short form) - Note Progress Note: Chief Complaint: chest pain S: remains cp free. no sob, palps, dizziness. given lasix 40 mg IV x 1 yesterday. started on low dose norvasc 2.5 mg this morning as anti-anginal. Current Medications Acetaminophen (Tylenol -) 650 mg PO Q6H PRN PRN Reason: FEVER OR PAIN Amlodipine Besylate (Norvasc -) 2.5 mg PO DAILY [facility] Last Admin: 02/01/17 09:49 Dose: 2.5 mg Aspirin (Ecotrin -) 81 mg PO DAILY [facility] Last Admin: 02/01/17 09:49 Dose: 81 mg Brimonidine Tartrate (Alphagan 0.15% -) 1 drop OU TID [facility] Last Admin: 02/01/17 06:36 Dose: 1 drop Docusate Sodium (Colace -) 100 mg PO BID [facility] Last Admin: 02/01/17 09:49 Dose: 100 mg Dorzolamide HCl (Trusopt 2%) 1 drop OU DAILY [facility] Stop: 02/02/17 23:59 Last Admin: 02/01/17 09:49 Dose: 1 drop Ferrous Sulfate (Feosol -) 325 mg PO BID [facility] Last Admin: 02/01/17 09:49 Dose: 325 mg Folic Acid (Folic Acid -) 1 mg PO DAILY [facility] Last Admin: 02/01/17 09:49 Dose: 1 mg Furosemide (Lasix Injection -) 40 mg IVPUSH DAILY [facility] Last Admin: 02/01/17 09:49 Dose: 40 mg Latanoprost (Xalatan 0.005% Eye Drops -) 1 drop OU HS [facility] Stop: 02/02/17 23:59 Last Admin: 01/31/17 22:29 Dose: 1 drop Levothyroxine Sodium (Synthroid -) 25 mcg PO DAILY@0700 [facility] Last Admin: 02/01/17 06:36 Dose: 25 mcg Metoprolol Succinate (Toprol Xl -) 25 mg PO DAILY [facility] Last Admin: 02/01/17 09:49 Dose: 25 mg Nitroglycerin (Nitrostat -) 0.4 mg SL Q5M PRN PRN Reason: FOR CHEST PAIN Simethicone (Mylicon -) 80 mg PO Q4H PRN PRN Reason: GAS Tamsulosin HCl (Flomax -) 0.4 mg PO DAILY@0830 [facility] Last Admin: 02/01/17 07:48 Dose: 0.4 mg Vital Signs - 24 hr 01/31/17 01/31/17 01/31/17 13:18 18:00 20:11 Temperature 98.4 F 98.9 F Pulse Rate 70 70 70 Respiratory 18 16 18 Rate Blood Pressure 112/66 147/107 123/81 O2 Sat by Pulse 98 Oximetry (%) 01/31/17 02/01/17 02/01/17 22:45 00:16 04:00 Temperature Pulse Rate 72 74 70 Respiratory 16 18 18 Rate Blood Pressure 142/89 137/79 128/73 O2 Sat by Pulse Oximetry (%) 02/01/17 02/01/17 02/01/17 05:38 09:00 09:48 Temperature 97.9 F 97.7 F Pulse Rate 70 70 82 Respiratory 18 18 Rate Blood Pressure 127/85 119/82 O2 Sat by Pulse 100 96 Oximetry (%) Intake & Output 01/30/17 01/31/17 02/01/17 02/02/17 07:59 07:59 07:59 07:59 Intake Total 120 380 Output Total 600 1150 Balance -480 -770 Weight 139 lb 11.2 oz 134 lb 12.8 oz nad, calm jvd elevated, neck supple bibasilar rales, nl effort rrr nl s1, s2 2/6 murmur throughout precordium and at apex. + bs soft nt nd ext without e/c/c + dp/pt no carotid bruits aaox3 no jaundice, diaphoresis. CBC, BMP 02/01/17 05:00 02/01/17 05:00 Laboratory Tests 02/01/17 05:00 Total Bilirubin 5.4 H D Direct Bilirubin 0.5 H D AST 107 H D ALT 134 H Alkaline Phosphatase 179 H Albumin 3.8 TSH 2.48 D ekg: v-paced tele: v-paced with intermittent afib, vr 80's. cxr 01/30: rul scarring. no acute pathology (by my review, likely congestion) cxr 01/31: by my review. - worsened congestion with fluid in fissure and likely effusions with blunting of costophrenic angle. LHC 12/06 no LMCA dz; 30-50% pLAD. 80-90% mLAD, calcified; 70-80% oRCA, calcified; mild OM1; s/p xience to mLAD (no intervention on RCA). mild AI LHC 09/05 ([facility]): 90% mLAD, 80% oRCA, 50% LCX and mRCA; severe LV dysfunction; s/p PTCA/cutting balloon angioplasty to LAD and RCA MIBI 12/06 (): persantine--no STs; small area anteroapical isch; fixed IW with small area inferoapical reversibility--? isch; NORMAL EF Echo 04/2016: 1. The left ventricular size is normal. 2. Overall left ventricular systolic function is low-normal with, an EF between 50 - 55 %. 3. No regional wall motion abnormalities were noted. 4. The right ventricle is moderately enlarged. 5. The right ventricular systolic function is at the low end of normal. 6. Left atrium is moderately dilated by volume. 7. The right atrium is mildly enlarged. 8. Electronic pacemaker lead seen in the RA and RV cavities. The RA pacemaker wire is highly mobile, with possible mobile echodensity adherent to it. This structure is potentially consistent with fibrinous strand but vegetation cannot be excluded. 9. Aortic valve is severely thickened. 10. There is mild aortic regurgitation. 11. Moderate aortic stenosis. 12. Moderate mitral regurgitation is present, eccentric jet (anteriorly directed ); possibly 2 jets. 13. Moderate tricuspid regurgitation present. 14. There is severe pulmonary hypertension. 15. The right ventricular systolic pressure, as measured by Doppler, is at least 91 mmHg, assuming RA pressure of 7 mmHg (TR signal is cut off). 16. The aortic root is mildy dilated (4.1cm). Laminar, non-complex (< 4mm), atherosclerotic plaque(s) located in the aortic arch. 17. Normal inferior vena cava with less than 50% inspiratory collapse consistent with mildly estimated right atrial pressure (approximately 10 mmHg). A/P 87 yo with h/o HTN, HLD, CAD s/p angioplasty/mLAD stent with residual disease, atrial fibrillation, long QT with VT s/p AICD, moderate AR, moderate , moderate mr, HFpEF, phtn on O2, hypothyroidism, hemolytic anemia (followed at [facility] for Hem), elevated bili due to [place]', thrombocytopenia, bph and mild dementia who p/w CP. CP - h/o cad, phtn, valvular/diastolic heart failure - which all may be contributing to chest discomfort. . - has residual ISR of RCA and residual LAD disease that has been medically managed. No signs of ACS. CE's neg x 2 (01/30 and 01/31). EKG Vpaced. uptitration of anti-anginals has been limited by low blood pressures in the past. Would avoid ranexa b/c of qt prolongation potential. Will try low dose norvasc with close monitoring of bp's. If bp drops, can consider bid metoprolol instead of norvasc. - Recently outpatient lasix increased to 40 daily alternating with 80 daily, unclear if patient made these changes. HFpEF with superimposed valvular disease and phtn (mod /AR/MR) - 134 lbs at last office visit when euvolemic. Unfortunately can only get bed weights here. ? accuracy. - bp/hr well controlled. - 01/31 Appears volume overloaded, will give trial of lasix 40 mg IV x 1 and reevaluate in am. May need uptitration to bid dosing. new lft abnormalities may be due to hepatic congestion, reevaluate in am. Note, tbili elevated > 3.0 even on last sjr labs (2014) potassium repletion - 02/01: Still with pulmonary edema on exam. Will increase lasix to 40 mg IV BID today, (may be able to decrease back to daily tomorrow). LFT's somewhat improved. tbili continues to rise (primarily indirect). Will repeat echo. - daily standing weights when possible, i/o's, bmp CAD s/p angioplasty/mLAD stent with residual disease - -residual dz: 70-80% ostial RCA (deferred due to pt with acute agitation during cath); 30-50% pLAD - con't asa, uptitration of anti-anginals as above. - on pravastatin 10 mg on 5 days a week. In light of acute lft elevation, hold for now and resume when improving. PMVT/torsades--? h/o long QT prior (? culprit meds); QT was profoundly prolonged (>600 msec) on presentation; s/p ICD, no shocks; - last ICD check 09/2016, LRL likely 70. con't outpatient monitoring. - aggressive lyte repletion, K > 4.0, mg > 2.0. avoid qt prolonging drugs. Afib - no h/o CVA/TIA; not a candidate for AC due to recurrent epistaxis, on ASA - currently rate controlled on low dose metoprolol HTN - can be labile, meds as above. close monitoring. mod dil ao root (4.1cm) - con't bb thrombocytopenia/anemia - stable, con't to monitor
[2017-02-01] MEDS: FUROSEMIDE 40 MG/4 ML INJECTABLE VIAL IVPUSH SCH (13:21)
--- NOTE | 2017-02-01 18:08 | PN ---
Progress Note (short form) - Note Progress Note: patient has remained cp free cardiology follow up reviewed and appreciated started on low dose ccb as anti anginal today will need to monitor Bp, as out patient treatment has been limited by hypotension Vital Signs Period Temp Pulse Resp BP Sys/Fox Pulse Ox Last 24 Hr 97.7 F-98.9 F 70-82 16-18 103-142/66-89 96-100 AAlert NAD / cp free neck supple heart S1/S2 regular lungs crackles at bases /poor inspiratory effort abd soft non tender ext no edema From CBC, BMP 02/01/17 05:00 02/01/17 05:00 Active Medications Acetaminophen (Tylenol -) 650 mg PO Q6H PRN PRN Reason: FEVER OR PAIN Aspirin (Ecotrin -) 81 mg PO DAILY [facility] Last Admin: 02/01/17 09:49 Dose: 81 mg Brimonidine Tartrate (Alphagan 0.15% -) 1 drop OU TID [facility] Last Admin: 02/01/17 13:21 Dose: 1 drop Docusate Sodium (Colace -) 100 mg PO BID [facility] Last Admin: 02/01/17 09:49 Dose: 100 mg Dorzolamide HCl (Trusopt 2%) 1 drop OU DAILY [facility] Stop: 02/02/17 23:59 Last Admin: 02/01/17 09:49 Dose: 1 drop Ferrous Sulfate (Feosol -) 325 mg PO BID [facility] Last Admin: 02/01/17 09:49 Dose: 325 mg Folic Acid (Folic Acid -) 1 mg PO DAILY [facility] Last Admin: 02/01/17 09:49 Dose: 1 mg Furosemide (Lasix Injection -) 40 mg IVPUSH BID@0600,1400 [facility] Last Admin: 02/01/17 13:21 Dose: 40 mg Latanoprost (Xalatan 0.005% Eye Drops -) 1 drop OU HS [facility] Stop: 02/02/17 23:59 Last Admin: 01/31/17 22:29 Dose: 1 drop Levothyroxine Sodium (Synthroid -) 25 mcg PO DAILY@0700 [facility] Last Admin: 02/01/17 06:36 Dose: 25 mcg Metoprolol Succinate (Toprol Xl -) 25 mg PO DAILY [facility] Last Admin: 02/01/17 09:49 Dose: 25 mg Nitroglycerin (Nitrostat -) 0.4 mg SL Q5M PRN PRN Reason: FOR CHEST PAIN Simethicone (Mylicon -) 80 mg PO Q4H PRN PRN Reason: GAS Tamsulosin HCl (Flomax -) 0.4 mg PO DAILY@0830 [facility] Last Admin: 02/01/17 07:48 Dose: 0.4 mg 87 yo with h/o HTN, HLD, CAD s/p angioplasty/mLAD stent with residual disease, atrial fibrillation, long QT with VT s/p AICD, moderate AR, moderate , moderate mr, HFpEF, phtn on O2, hypothyroidism, 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 # CP - started on norvasc 2.5 today - Lasix 40 mg IV BID per cardio --- will need to monitor Bp / renal function / lytes . . - per cardiology - out patient lasix increased to 40 daily alternating with 80 daily, unclear if compliant. - given trial of lasix 40 mg IV x 1 yesterday - No signs of ACS. CE's neg x 2 (01/30 and 01/31). EKG paced # HFpEF with superimposed valvular disease and phtn (mod /AR/MR) - diuresis as above. - daily weights, i/o's, bmp # abn LFT -h/o Gilbert's persistent tbili > 2 -possible added elevation due to passive congestion / statins -hold Statin -follow lfts - contiued inc --probably due to congestion # afib - h/o bleeding epistaxis - rate controlled -continue asa / well tolerated #htn - norvasc added / lasix added - monitor and may need med adjustment #anemia - h/o hemolytic anemia - thrombocytopenia - stable --- followed at [place] [facility]c # hypokalemia /eletrolye depletion - h/o prolonged qt s/p AICD - keep K > 4 - keep Mg >2 # hypothyroid - on synthroid - TSH adequate Problem List - Problems (1) Chest pain Code(s): R07.9 - CHEST PAIN, UNSPECIFIED (2) CAD (coronary artery disease) Code(s): I25.10 - ATHSCL HEART DISEASE OF [place] CORONARY ARTERY W/O ANG PCTRS (3) HTN (hypertension) Code(s): I10 - ESSENTIAL (PRIMARY) HYPERTENSION (4) Atrial fibrillation Code(s): I48.91 - UNSPECIFIED ATRIAL FIBRILLATION Qualifiers: Atrial fibrillation type: chronic Qualified Code(s): I48.2 - Chronic atrial fibrillation; I48.2 - Chronic atrial fibrillation; I48.2 - Chronic atrial fibrillation; I48.2 - Chronic atrial fibrillation (5) BPH (benign prostatic hypertrophy) Code(s): N40.0 - BENIGN PROSTATIC HYPERPLASIA WITHOUT LOWER URINRY TRACT SYMP (6) Anemia Code(s): D64.9 - ANEMIA, UNSPECIFIED (7) Gilbert disease Code(s): E80.4 - GILBERT SYNDROME (8) Hypothyroid Code(s): E03.9 - HYPOTHYROIDISM, UNSPECIFIED
[2017-02-01] MEDS: LATANOPROST 0.005% OPHTH SOLN 2.5ML BOTTLE OU SCH (22:16)
[2017-02-02] MEDS: FUROSEMIDE 40 MG/4 ML INJECTABLE VIAL IVPUSH SCH ×2 (06:05→14:42)
[2017-02-02] MEDS: LEVOTHYROXINE NA 25 MCG TABLET (FP) PO SCH (06:05)
[2017-02-02] MEDS: BRIMONIDINE TARTRATE 0.15% OPHTHALMIC 5 ML BOTTLE OU SCH ×3 (06:05→21:57)
[2017-02-02 06:40] LABS: CALCIUM 8.3 mg/dL (8.5-10.1)
[2017-02-02 06:46] LABS: ALBUMIN 3.5 g/dl (3.4-5.0); ALK PHOS 148 U/L (45-117); ANION GAP 7 (8-16); BILIRUBIN,TOTAL 5.1 mg/dL (0.2-1.0); CO2 29 mmol/L (21-32); CREATININE 0.8 mg/dL (0.7-1.3); GLUCOSE,RANDOM 79 mg/dL (74-106); SGOT/AST 55 U/L (15-37); SGPT/ALT 90 U/L (12-78); TOT PROT 6.7 g/dl (6.4-8.2)
[2017-02-02] MEDS ORDERED: PT OWN MED DRAWER 7, Y5N ONE ×4 (10:22→22:05)
[2017-02-02] MEDS: FOLIC ACID 1 MG TABLET (FP) PO SCH (10:23)
[2017-02-02] MEDS: METOPROLOL SUCCINATE 25 MG TAB.SR.24H (FP) PO SCH ×2 (10:23→21:57)
[2017-02-02] MEDS: ASPIRIN COATED 81 MG TABLET.EC PO SCH (10:23)
[2017-02-02] MEDS: TAMSULOSIN HCL 0.4 MG CAP.ER.24H (FP) PO SCH (10:23)
[2017-02-02] MEDS: DOCUSATE SODIUM 100 MG CAPSULE (FP) PO SCH ×2 (10:23→21:57)
[2017-02-02] MEDS: FERROUS SO4 325 MG TABLET (FP) PO SCH ×2 (10:23→21:57)
[2017-02-02] MEDS: DORZOLAMIDE 2% HCL OPHTHALMIC SOLUTION 10 ML BOTTLE OU SCH (10:23)
--- NOTE | 2017-02-02 11:24 | PN ---
Progress Note (short form) - Note Progress Note: Chief Complaint: chest pain S: remains cp free. no sob, palps, dizziness. states he feels better than baseline. lasix 40 mg IV increased to bid yesterday. norvasc stopped b/c bp trending down. Current Medications Acetaminophen (Tylenol -) 650 mg PO Q6H PRN PRN Reason: FEVER OR PAIN Aspirin (Ecotrin -) 81 mg PO DAILY [facility] Last Admin: 02/02/17 10:23 Dose: 81 mg Brimonidine Tartrate (Alphagan 0.15% -) 1 drop OU TID [facility] Last Admin: 02/02/17 06:05 Dose: 1 drop Docusate Sodium (Colace -) 100 mg PO BID [facility] Last Admin: 02/02/17 10:23 Dose: 100 mg Dorzolamide HCl (Trusopt 2%) 1 drop OU DAILY [facility] Stop: 02/02/17 23:59 Last Admin: 02/02/17 10:23 Dose: 1 drop Ferrous Sulfate (Feosol -) 325 mg PO BID [facility] Last Admin: 02/02/17 10:23 Dose: 325 mg Folic Acid (Folic Acid -) 1 mg PO DAILY [facility] Last Admin: 02/02/17 10:23 Dose: 1 mg Furosemide (Lasix Injection -) 40 mg IVPUSH BID@0600,1400 [facility] Last Admin: 02/02/17 06:05 Dose: 40 mg Latanoprost (Xalatan 0.005% Eye Drops -) 1 drop OU HS [facility] Stop: 02/02/17 23:59 Last Admin: 02/01/17 22:16 Dose: 1 drop Levothyroxine Sodium (Synthroid -) 25 mcg PO DAILY@0700 [facility] Last Admin: 02/02/17 06:05 Dose: 25 mcg Metoprolol Succinate (Toprol Xl -) 25 mg PO DAILY [facility] Last Admin: 02/02/17 10:23 Dose: 25 mg Nitroglycerin (Nitrostat -) 0.4 mg SL Q5M PRN PRN Reason: FOR CHEST PAIN Potassium Chloride (K-Dur -) 40 meq PO ONCE ONE Stop: 02/02/17 11:21 Simethicone (Mylicon -) 80 mg PO Q4H PRN PRN Reason: GAS Tamsulosin HCl (Flomax -) 0.4 mg PO DAILY@0830 [facility] Last Admin: 10/10/17 10:23 Dose: 0.4 mg Vital Signs - 24 hr 02/01/17 02/01/17 02/02/17 14:37 22:00 02:00 Temperature 97.9 F 98.0 F 98.2 F Pulse Rate 70 68 70 Respiratory 16 18 18 Rate Blood Pressure 103/66 134/80 98/74 O2 Sat by Pulse 97 Oximetry (%) 02/02/17 02/02/17 05:51 08:44 Temperature 98.0 F Pulse Rate 70 70 Respiratory 17 19 Rate Blood Pressure 127/79 105/74 O2 Sat by Pulse Oximetry (%) Intake & Output 01/31/17 02/01/17 02/02/17 02/03/17 07:59 07:59 07:59 07:59 Intake Total 120 380 300 480 Output Total 600 1150 1175 400 Balance -627 -814 -285 80 Weight 139 lb 11.2 oz 134 lb 12.8 oz 134 lb 4.8 oz nad, calm, + jaundice jvd elevated, neck supple bibasilar rales improving, nl effort rrr nl s1, s2 2/6 murmur throughout precordium and at apex. + bs soft nt nd ext without e/c/c + dp/pt no carotid bruits alert and oriented no diaphoresis. CBC, BMP 02/01/17 05:00 02/02/17 05:00 Laboratory Tests 02/02/17 05:00 Total Bilirubin 5.1 H AST 55 H D ALT 90 H D Alkaline Phosphatase 148 H Albumin 3.5 ekg: v-paced tele: v-paced with underlying afib. cxr 01/30: rul scarring. no acute pathology (by my review, likely congestion) cxr 01/31: by my review. - worsened congestion with fluid in fissure and likely effusions with blunting of costophrenic angle. LHC 12/06 no LMCA dz; 30-50% pLAD. 80-90% mLAD, calcified; 70-80% oRCA, calcified; mild OM1; s/p xience to mLAD (no intervention on RCA). mild AI LHC 09/05 ([facility]): 90% mLAD, 80% oRCA, 50% LCX and mRCA; severe LV dysfunction; s/p PTCA/cutting balloon angioplasty to LAD and RCA MIBI 12/06 (): persantine--no STs; small area anteroapical isch; fixed IW with small area inferoapical reversibility--? isch; NORMAL EF Echo 04/2016: 1. The left ventricular size is normal. 2. Overall left ventricular systolic function is low-normal with, an EF between 50 - 55 %. 3. No regional wall motion abnormalities were noted. 4. The right ventricle is moderately enlarged. 5. The right ventricular systolic function is at the low end of normal. 6. Left atrium is moderately dilated by volume. 7. The right atrium is mildly enlarged. 8. Electronic pacemaker lead seen in the RA and RV cavities. The RA pacemaker wire is highly mobile, with possible mobile echodensity adherent to it. This structure is potentially consistent with fibrinous strand but vegetation cannot be excluded. 9. Aortic valve is severely thickened. 10. There is mild aortic regurgitation. 11. Moderate aortic stenosis. 12. Moderate mitral regurgitation is present, eccentric jet (anteriorly directed ); possibly 2 jets. 13. Moderate tricuspid regurgitation present. 14. There is severe pulmonary hypertension. 15. The right ventricular systolic pressure, as measured by Doppler, is at least 91 mmHg, assuming RA pressure of 7 mmHg (TR signal is cut off). 16. The aortic root is mildy dilated (4.1cm). Laminar, non-complex (< 4mm), atherosclerotic plaque(s) located in the aortic arch. 17. Normal inferior vena cava with less than 50% inspiratory collapse consistent with mildly estimated right atrial pressure (approximately 10 mmHg). A/P 87 yo with h/o HTN, HLD, CAD s/p angioplasty/mLAD stent with residual disease, atrial fibrillation, long QT with VT s/p AICD, moderate AR, moderate , moderate mr, HFpEF, phtn on O2, hypothyroidism, hemolytic anemia (followed at [place] for Hem), elevated bili due to [place]', thrombocytopenia, bph and mild dementia who p/w CP. CP - h/o cad, phtn, valvular/diastolic heart failure - which all may be contributing to chest discomfort. . - has residual ISR of RCA and residual LAD disease that has been medically managed. No signs of ACS. CE's neg x 2 (01/30 and 01/31). EKG Vpaced. uptitration of anti-anginals has been limited by low blood pressures in the past. Would avoid ranexa b/c of qt prolongation potential. BP's on low end on low dose norvasc here. Will try adding toprol 12.5 qhs. 02/02. - Recently outpatient lasix increased to 40 daily alternating with 80 daily, unclear if patient made these changes. HFpEF with superimposed valvular disease and phtn (mod /AR/MR) - 134 lbs at last office visit when euvolemic. Unfortunately can only get bed weights here. ? accuracy. - bp/hr well controlled. - 01/31 Appears volume overloaded, will give trial of lasix 40 mg IV x 1 and reevaluate in am. May need uptitration to bid dosing. new lft abnormalities may be due to hepatic congestion, reevaluate in am. Note, tbili elevated > 3.0 even on last sjr labs (2014) potassium repletion - 02/01: Still with pulmonary edema on exam. Will increase lasix to 40 mg IV BID today, (may be able to decrease back to daily tomorrow). LFT's somewhat improved. tbili continues to rise (primarily indirect). Will repeat echo. - 02/02: LFT's improving on lasix bid, con't. May be able to transition to daily dosing tomorrow. Needs standing weights. - daily standing weights when possible, i/o's, bmp CAD s/p angioplasty/mLAD stent with residual disease - -residual dz: 70-80% ostial RCA (deferred due to pt with acute agitation during cath); 30-50% pLAD - con't asa, anti-anginals as above. - on pravastatin 10 mg on 5 days a week. In light of acute lft elevation, hold for now and resume when improving. PMVT/torsades--? h/o long QT prior (? culprit meds); QT was profoundly prolonged (>600 msec) on presentation; s/p ICD, no shocks; - last ICD check 09/2016, LRL likely 70. con't outpatient monitoring. - aggressive lyte repletion, K > 4.0, mg > 2.0. avoid qt prolonging drugs. Afib - no h/o CVA/TIA; not a candidate for AC due to recurrent epistaxis, on ASA - currently rate controlled on low dose metoprolol HTN - can be labile, meds as above. close monitoring. mod dil ao root (4.1cm) - con't bb thrombocytopenia/anemia - stable, con't to monitor
[2017-02-02] MEDS ORDERED: POTASSIUM CHLORIDE TABS 20 MEQ TABLET.ER (FP) PO ONE (12:15)
[2017-02-02] MEDS: LATANOPROST 0.005% OPHTH SOLN 2.5ML BOTTLE OU SCH (21:57)
--- NOTE | 2017-02-02 22:01 | EKG ---
Test Reason : Blood Pressure : / mmHG Vent. Rate : 070 BPM Atrial Rate : 241 BPM P-R Int : 000 ms QRS Dur : 186 ms QT Int : 492 ms P-R-T Axes : 000 -79 069 degrees QTc Int : 531 ms Ventricular-paced rhythm ABNORMAL ECG WHEN COMPARED WITH ECG OF 01-FEB-2017 09:26, NO SIGNIFICANT CHANGE WAS FOUND Confirmed by CASEY MOISE MD ([id number]) on 02/02/2017 10:00:48 PM Referred By: MARIELA OLEARY Confirmed By:CASEY MOISE MD
--- NOTE | 2017-02-02 22:42 | EKG ---
Test Reason : Blood Pressure : / mmHG Vent. Rate : 070 BPM Atrial Rate : 063 BPM P-R Int : 000 ms QRS Dur : 186 ms QT Int : 492 ms P-R-T Axes : 000 -76 067 degrees QTc Int : 531 ms Ventricular-paced rhythm ABNORMAL ECG WHEN COMPARED WITH ECG OF 31-JAN-2017 10:02, NO SIGNIFICANT CHANGE WAS FOUND Confirmed by CASEY MOISE MD ([id number]) on 02/02/2017 10:42:01 PM Referred By: ELIJAH MCCLENDON DR Confirmed By:CASEY MOISE MD
--- NOTE | 2017-02-02 22:59 | PN ---
Progress Note (short form) - Note Progress Note: patient in bed appears more comfortable Cardiology note noted and appreciated Bp continued in low range -- norvasc d/c'd Vital Signs Period Temp Pulse Resp BP Sys/Fox Pulse Ox Last 24 Hr 98.0 F-98.6 F 70-78 12-19 96-127/71-79 100-100 Intake & Output 01/30/17 01/31/17 02/01/17 02/02/17 23:59 23:59 23:59 23:59 Intake Total 500 300 880 Output Total 300 1350 1275 1425 Balance -300 -850 -975 -545 Weight 141 lb 7 oz 139 lb 11.2 oz 134 lb 12.8 oz 134 lb 4.8 oz neck supple heart S1/S2 regular ( monitor -paced) lungs rales at bases abd soft non tender ext no edema ECHO in process CBC, BMP 02/01/17 05:00 02/02/17 05:00 Active Medications Acetaminophen (Tylenol -) 650 mg PO Q6H PRN PRN Reason: FEVER OR PAIN Aspirin (Ecotrin -) 81 mg PO DAILY [facility] Last Admin: 02/02/17 10:23 Dose: 81 mg Brimonidine Tartrate (Alphagan 0.15% -) 1 drop OU TID [facility] Last Admin: 02/02/17 21:57 Dose: 1 drop Docusate Sodium (Colace -) 100 mg PO BID [facility] Last Admin: 02/02/17 21:57 Dose: 100 mg Dorzolamide HCl (Trusopt 2%) 1 drop OU DAILY [facility] Stop: 02/02/17 23:59 Last Admin: 02/02/17 10:23 Dose: 1 drop Ferrous Sulfate (Feosol -) 325 mg PO BID [facility] Last Admin: 02/02/17 21:57 Dose: 325 mg Folic Acid (Folic Acid -) 1 mg PO DAILY [facility] Last Admin: 02/02/17 10:23 Dose: 1 mg Furosemide (Lasix Injection -) 40 mg IVPUSH BID@0600,1400 [facility] Last Admin: 02/02/17 14:42 Dose: 40 mg Latanoprost (Xalatan 0.005% Eye Drops -) 1 drop OU HS [facility] Stop: 02/02/17 23:59 Last Admin: 02/02/17 21:57 Dose: 1 drop Levothyroxine Sodium (Synthroid -) 25 mcg PO DAILY@0700 [facility] Last Admin: 02/02/17 06:05 Dose: 25 mcg Metoprolol Succinate (Toprol Xl -) 25 mg PO DAILY [facility] Last Admin: 02/02/17 10:23 Dose: 25 mg Metoprolol Succinate (Toprol Xl -) 12.5 mg PO HS [facility] Last Admin: 02/02/17 21:57 Dose: 12.5 mg Nitroglycerin (Nitrostat -) 0.4 mg SL Q5M PRN PRN Reason: FOR CHEST PAIN Simethicone (Mylicon -) 80 mg PO Q4H PRN PRN Reason: GAS Tamsulosin HCl (Flomax -) 0.4 mg PO DAILY@0830 [facility] Last Admin: 02/02/17 10:23 Dose: 0.4 mg 87 yo with h/o HTN, HLD, CAD s/p angioplasty/mLAD stent with residual disease, atrial fibrillation, long QT with VT s/p AICD, moderate AR, moderate , moderate mr, HFpEF, phtn on O2, hypothyroidism, 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 # CP - d/c norvasc 2.5 today due to low bp - Lasix 40 mg IV BID continued --- will need to monitor Bp / renal function / lytes . . - per cardiology - out patient lasix increased to 40 daily alternating with 80 daily, unclear if compliant. - No signs of ACS. CE's neg x 2 (01/30 and 01/31). EKG paced # HFpEF with superimposed valvular disease and phtn (mod /AR/MR) - diuresis as above. - daily weights, i/o's, bmp # abn LFT -h/o Gilbert's persistent tbili > 2 -possible added elevation due to passive congestion / statins -hold Statin -follow lfts - improved - # afib - h/o bleeding epistaxis - rate controlled -continue asa / well tolerated #htn - norvasc d/c'd / lasix continued - monitor and may need med adjustment #anemia - h/o hemolytic anemia - thrombocytopenia - stable --- followed at [place] [facility] # hypokalemia /eletrolye depletion - h/o prolonged qt s/p AICD - keep K > 4 - keep Mg >2 # hypothyroid - on synthroid - TSH adequate Problem List - Problems (1) Chest pain Code(s): R07.9 - CHEST PAIN, UNSPECIFIED (2) CAD (coronary artery disease) Code(s): I25.10 - ATHSCL HEART DISEASE OF [place] CORONARY ARTERY W/O ANG PCTRS (3) HTN (hypertension) Code(s): I10 - ESSENTIAL (PRIMARY) HYPERTENSION (4) Atrial fibrillation Code(s): I48.91 - UNSPECIFIED ATRIAL FIBRILLATION Qualifiers: Atrial fibrillation type: chronic Qualified Code(s): I48.2 - Chronic atrial fibrillation; I48.2 - Chronic atrial fibrillation; I48.2 - Chronic atrial fibrillation; I48.2 - Chronic atrial fibrillation (5) BPH (benign prostatic hypertrophy) Code(s): N40.0 - BENIGN PROSTATIC HYPERPLASIA WITHOUT LOWER URINRY TRACT SYMP (6) Anemia Code(s): D64.9 - ANEMIA, UNSPECIFIED (7) Gilbert disease Code(s): E80.4 - GILBERT SYNDROME (8) Hypothyroid Code(s): E03.9 - HYPOTHYROIDISM, UNSPECIFIED
[2017-02-03] MEDS ORDERED: PT OWN MED DRAWER 7, Y5N ONE ×2 (05:24→21:39)
[2017-02-03] MEDS: BRIMONIDINE TARTRATE 0.15% OPHTHALMIC 5 ML BOTTLE OU SCH ×3 (05:38→21:42)
[2017-02-03] MEDS: FUROSEMIDE 40 MG/4 ML INJECTABLE VIAL IVPUSH SCH ×2 (05:38→14:38)
[2017-02-03] MEDS: LEVOTHYROXINE NA 25 MCG TABLET (FP) PO SCH (06:03)
[2017-02-03 06:41] LABS: ALBUMIN 3.6 g/dl (3.4-5.0); ANION GAP 8 (8-16); CALCIUM 8.8 mg/dL (8.5-10.1); CO2 29 mmol/L (21-32); GLUCOSE,RANDOM 88 mg/dL (74-106); SGPT/ALT 70 U/L (12-78)
[2017-02-03 06:43] LABS: ALK PHOS 135 U/L (45-117); CREATININE 0.8 mg/dL (0.7-1.3); SGOT/AST 34 U/L (15-37)
[2017-02-03] MEDS: TAMSULOSIN HCL 0.4 MG CAP.ER.24H (FP) PO SCH (08:28)
[2017-02-03] MEDS: METOPROLOL SUCCINATE 25 MG TAB.SR.24H (FP) PO SCH ×2 (09:35→21:42)
[2017-02-03] MEDS: DOCUSATE SODIUM 100 MG CAPSULE (FP) PO SCH ×2 (09:35→21:42)
[2017-02-03] MEDS: ASPIRIN COATED 81 MG TABLET.EC PO SCH (09:36)
[2017-02-03] MEDS: FOLIC ACID 1 MG TABLET (FP) PO SCH (09:36)
[2017-02-03] MEDS: FERROUS SO4 325 MG TABLET (FP) PO SCH ×2 (09:36→21:42)
--- NOTE | 2017-02-03 10:24 | PN ---
Progress Note (short form) - Note Progress Note: S: no cp sob palps dizzy Current Medications Generic Name Dose Route Start Last Admin Trade Name Freq PRN Reason Stop Dose Admin Acetaminophen 650 mg 01/30/17 14:45 Tylenol - PO Q6H PRN FEVER OR PAIN Aspirin 81 mg 01/31/17 10:00 02/03/17 09:36 Ecotrin - PO 81 mg DAILY [facility] Administration Brimonidine Tartrate 1 drop 01/30/17 22:00 02/03/17 05:38 Alphagan 0.15% - OU 1 drop TID [facility] Administration Docusate Sodium 100 mg 01/30/17 22:00 02/03/17 09:35 Colace - PO 100 mg BID [facility] Administration Ferrous Sulfate 325 mg 01/30/17 22:00 02/03/17 09:36 Feosol - PO 325 mg BID [facility] Administration Folic Acid 1 mg 01/31/17 10:00 02/03/17 09:36 Folic Acid - PO 1 mg DAILY [facility] Administration Furosemide 40 mg 02/01/17 14:00 02/03/17 05:38 Lasix Injection - IVPUSH 02/03/17 16:00 40 mg BID@0600,1400 [facility] Administration Furosemide 40 mg 02/04/17 10:00 Lasix - PO DAILY [facility] Levothyroxine Sodium 25 mcg 01/31/17 07:00 02/03/17 06:03 Synthroid - PO 25 mcg DAILY@0700 [facility] Administration Metoprolol Succinate 25 mg 01/31/17 10:00 02/03/17 09:35 Toprol Xl - PO 25 mg DAILY [facility] Administration Metoprolol Succinate 12.5 mg 02/02/17 22:00 02/02/17 21:57 Toprol Xl - PO 12.5 mg HS [facility] Administration Nitroglycerin 0.4 mg 01/30/17 15:05 Nitrostat - SL Q5M PRN FOR CHEST PAIN Simethicone 80 mg 01/30/17 14:58 Mylicon - PO Q4H PRN GAS Tamsulosin HCl 0.4 mg 01/31/17 08:30 02/03/17 08:28 Flomax - PO 0.4 mg DAILY@0830 [facility] Administration Vital Signs Period Temp Pulse Resp BP Sys/Fox Pulse Ox Last 24 Hr 97.2 F-98.6 F 70-78 12-20 96-121/71-85 100 nad, calm cta bl nl eff rrr nl s1, s2 2/6 murmur throughout precordium and at apex. + bs soft nt nd ext without e/c/c alert and oriented no diaphoresis CBC, BMP 02/01/17 05:00 02/03/17 05:00 ekg: v-paced tele: v-paced with underlying afib. cxr 02/03: clear lungs LHC 12/06 no LMCA dz; 30-50% pLAD. 80-90% mLAD, calcified; 70-80% oRCA, calcified; mild OM1; s/p xience to mLAD (no intervention on RCA). mild AI LHC 09/05 ([facility]): 90% mLAD, 80% oRCA, 50% LCX and mRCA; severe LV dysfunction; s/p PTCA/cutting balloon angioplasty to LAD and RCA MIBI 12/06 (): persantine--no STs; small area anteroapical isch; fixed IW with small area inferoapical reversibility--? isch; NORMAL EF Echo 04/2016: 1. The left ventricular size is normal. 2. Overall left ventricular systolic function is low-normal with, an EF between 50 - 55 %. 3. No regional wall motion abnormalities were noted. 4. The right ventricle is moderately enlarged. 5. The right ventricular systolic function is at the low end of normal. 6. Left atrium is moderately dilated by volume. 7. The right atrium is mildly enlarged. 8. Electronic pacemaker lead seen in the RA and RV cavities. The RA pacemaker wire is highly mobile, with possible mobile echodensity adherent to it. This structure is potentially consistent with fibrinous strand but vegetation cannot be excluded. 9. Aortic valve is severely thickened. 10. There is mild aortic regurgitation. 11. Moderate aortic stenosis. 12. Moderate mitral regurgitation is present, eccentric jet (anteriorly directed ); possibly 2 jets. 13. Moderate tricuspid regurgitation present. 14. There is severe pulmonary hypertension. 15. The right ventricular systolic pressure, as measured by Doppler, is at least 91 mmHg, assuming RA pressure of 7 mmHg (TR signal is cut off). 16. The aortic root is mildy dilated (4.1cm). Laminar, non-complex (< 4mm), atherosclerotic plaque(s) located in the aortic arch. 17. Normal inferior vena cava with less than 50% inspiratory collapse consistent with mildly estimated right atrial pressure (approximately 10 mmHg). echo 01/2017: low nl lvef, mild dec rv fcn, mod natalie, mod-sev mr, mod phtn, mild tr, mod , mod ar, mod pr, ao root dil A/P 87 yo with h/o HTN, HLD, CAD s/p angioplasty/mLAD stent with residual disease, atrial fibrillation, long QT with VT s/p AICD, moderate AR, moderate , moderate mr, HFpEF, phtn on O2, hypothyroidism, hemolytic anemia (followed at [place] for Hem), elevated bili due to [place]', thrombocytopenia, bph and mild dementia who p/w CP. CP - h/o cad, phtn, valvular/diastolic heart failure - which all may be contributing to chest discomfort. . - has residual ISR of RCA and residual LAD disease that has been medically managed. No signs of ACS. CE's neg x 2 (01/30 and 01/31). EKG Vpaced. uptitration of anti-anginals has been limited by low blood pressures in the past. Would avoid ranexa b/c of qt prolongation potential. BP's on low end on low dose norvasc here. added toprol 12.5 qhs here. -currently feeling well, no cp HFpEF with superimposed valvular disease and phtn (mod /AR/MR) - 134 lbs at last office visit when euvolemic. Unfortunately can only get bed weights here. ? accuracy. - bp/hr well controlled. - 01/31 Appears volume overloaded, will give trial of lasix 40 mg IV x 1 and reevaluate in am. May need uptitration to bid dosing. new lft abnormalities may be due to hepatic congestion, reevaluate in am. Note, tbili elevated > 3.0 even on last sjr labs (2014) potassium repletion - 02/01: Still with pulmonary edema on exam. Will increase lasix to 40 mg IV BID today, (may be able to decrease back to daily tomorrow). LFT's somewhat improved. tbili continues to rise (primarily indirect). Will repeat echo. - 02/02: LFT's improving on lasix bid, con't. May be able to transition to daily dosing tomorrow. Needs standing weights. -02/03: vol status improved. cxr clear. change to po lasix tomorrow. was on 40 qd alternating with 80 qd at home, cont same. CAD s/p angioplasty/mLAD stent with residual disease -residual dz: 70-80% ostial RCA (deferred due to pt with acute agitation during cath); 30-50% pLAD -con't asa, anti-anginals as above. -on pravastatin 10 mg on 5 days a week, can continue PMVT/torsades--? h/o long QT prior (? culprit meds); QT was profoundly prolonged (>600 msec) on presentation; s/p ICD, no shocks; - last ICD check 09/2016, LRL likely 70. con't outpatient monitoring. - aggressive lyte repletion, K > 4.0, mg > 2.0. avoid qt prolonging drugs. Afib - no h/o CVA/TIA; not a candidate for AC due to recurrent epistaxis, on ASA - currently rate controlled on low dose metoprolol HTN - can be labile, meds as above. mod dil ao root (4.1cm) - con't bb thrombocytopenia/anemia - stable, con't to monitor
--- NOTE | 2017-02-03 21:33 | PN ---
Progress Note (short form) - Note Progress Note: patient in bed appears more comfortable Cardiology note noted and appreciated continued on Lasix BID one more day to start PO in am Vital Signs Period Temp Pulse Resp BP Sys/Fox Pulse Ox Last 24 Hr 98.0 F-98.6 F 70-78 12-19 96-127/71-79 100-100 Intake & Output 01/31/17 02/01/17 02/02/17 02/03/17 23:59 23:59 23:59 23:59 Intake Total 500 300 880 Output Total 1350 1275 1550 525 Balance -850 -975 -670 -525 Weight 139 lb 11.2 oz 134 lb 12.8 oz 134 lb 4.8 oz 131 lb 8 oz neck supple heart S1/S2 regular ( monitor -paced) lungs clear abd soft non tender ext no edema /C / C ECHO per Cardio note Echo 04/2016: 1. The left ventricular size is normal. 2. Overall left ventricular systolic function is low-normal with, an EF between 50 - 55 %. 3. No regional wall motion abnormalities were noted. 4. The right ventricle is moderately enlarged. 5. The right ventricular systolic function is at the low end of normal. 6. Left atrium is moderately dilated by volume. 7. The right atrium is mildly enlarged. 8. Electronic pacemaker lead seen in the RA and RV cavities. The RA pacemaker wire is highly mobile, with possible mobile echodensity adherent to it. This structure is potentially consistent with fibrinous strand but vegetation cannot be excluded. 9. Aortic valve is severely thickened. 10. There is mild aortic regurgitation. 11. Moderate aortic stenosis. 12. Moderate mitral regurgitation is present, eccentric jet (anteriorly directed ); possibly 2 jets. 13. Moderate tricuspid regurgitation present. 14. There is severe pulmonary hypertension. 15. The right ventricular systolic pressure, as measured by Doppler, is at least 91 mmHg, assuming RA pressure of 7 mmHg (TR signal is cut off). 16. The aortic root is mildy dilated (4.1cm). Laminar, non-complex (< 4mm), atherosclerotic plaque(s) located in the aortic arch. 17. Normal inferior vena cava with less than 50% inspiratory collapse consistent with mildly estimated right atrial pressure (approximately 10 mmHg). echo 01/2017: low nl lvef, mild dec rv fcn, mod natalie, mod-sev mr, mod phtn, mild tr, mod , mod ar, mod pr, ao root dil CBC, BMP 02/01/17 05:00 02/02/17 05:00 CBC, BMP 02/01/17 05:00 02/03/17 05:00 Active Medications Acetaminophen (Tylenol -) 650 mg PO Q6H PRN PRN Reason: FEVER OR PAIN Aspirin (Ecotrin -) 81 mg PO DAILY [facility] Last Admin: 02/03/17 09:36 Dose: 81 mg Brimonidine Tartrate (Alphagan 0.15% -) 1 drop OU TID [facility] Last Admin: 02/03/17 14:38 Dose: 1 drop Docusate Sodium (Colace -) 100 mg PO BID [facility] Last Admin: 02/03/17 09:35 Dose: 100 mg Ferrous Sulfate (Feosol -) 325 mg PO BID [facility] Last Admin: 02/03/17 09:36 Dose: 325 mg Folic Acid (Folic Acid -) 1 mg PO DAILY [facility] Last Admin: 02/03/17 09:36 Dose: 1 mg Furosemide (Lasix -) 40 mg PO DAILY [facility] Levothyroxine Sodium (Synthroid -) 25 mcg PO DAILY@0700 [facility] Last Admin: 02/03/17 06:03 Dose: 25 mcg Metoprolol Succinate (Toprol Xl -) 25 mg PO DAILY [facility] Last Admin: 02/03/17 09:35 Dose: 25 mg Metoprolol Succinate (Toprol Xl -) 12.5 mg PO HS [facility] Last Admin: 02/02/17 21:57 Dose: 12.5 mg Nitroglycerin (Nitrostat -) 0.4 mg SL Q5M PRN PRN Reason: FOR CHEST PAIN Simethicone (Mylicon -) 80 mg PO Q4H PRN PRN Reason: GAS Tamsulosin HCl (Flomax -) 0.4 mg PO DAILY@0830 [facility] Last Admin: 02/03/17 08:28 Dose: 0.4 mg 87 yo with h/o HTN, HLD, CAD s/p angioplasty/mLAD stent with residual disease, atrial fibrillation, long QT with VT s/p AICD, moderate AR, moderate , moderate mr, HFpEF, phtn on O2, hypothyroidism, 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 # CP - d/c norvasc 2.5 due to low bp - Lasix 40 mg IV BID today -- start PO in am ---continue tomonitor Bp / renal function / lytes . . - per cardiology - out patient lasix increased to 40 daily alternating with 80 daily, will resume at d/c - # HFpEF with superimposed valvular disease and phtn (mod /AR/MR) - diuresis as above. - daily weights, i/o's, bmp # abn LFT -h/o Gilbert's persistent tbili > 2 - LFT improving with diuresis -possible elevation due to passive congestion / statins -Statin on hold -follow lfts - improved - # afib - h/o bleeding epistaxis - rate controlled -continue asa / well tolerated #htn - norvasc d/c'd / lasix continued - monitor and may need med adjustment #anemia - h/o hemolytic anemia - thrombocytopenia - stable --- followed at [facility]e/Onc # hypokalemia /eletrolye depletion - h/o prolonged qt s/p AICD - keep K > 4 - keep Mg >2 # hypothyroid - on synthroid - TSH adequate Problem List - Problems (1) Chest pain Code(s): R07.9 - CHEST PAIN, UNSPECIFIED (2) CAD (coronary artery disease) Code(s): I25.10 - ATHSCL HEART DISEASE OF [place] CORONARY ARTERY W/O ANG PCTRS (3) HTN (hypertension) Code(s): I10 - ESSENTIAL (PRIMARY) HYPERTENSION (4) Atrial fibrillation Code(s): I48.91 - UNSPECIFIED ATRIAL FIBRILLATION Qualifiers: Atrial fibrillation type: chronic Qualified Code(s): I48.2 - Chronic atrial fibrillation; I48.2 - Chronic atrial fibrillation; I48.2 - Chronic atrial fibrillation; I48.2 - Chronic atrial fibrillation (5) BPH (benign prostatic hypertrophy) Code(s): N40.0 - BENIGN PROSTATIC HYPERPLASIA WITHOUT LOWER URINRY TRACT SYMP (6) Anemia Code(s): D64.9 - ANEMIA, UNSPECIFIED (7) Gilbert disease Code(s): E80.4 - GILBERT SYNDROME (8) Hypothyroid Code(s): E03.9 - HYPOTHYROIDISM, UNSPECIFIED
[2017-02-03] MEDS: LATANOPROST 0.005% OPHTH SOLN 2.5ML BOTTLE OU SCH (22:06)
[2017-02-04] MEDS ORDERED: PT OWN MED DRAWER 7, Y5N ONE ×6 (06:10→22:41)
[2017-02-04] MEDS: BRIMONIDINE TARTRATE 0.15% OPHTHALMIC 5 ML BOTTLE OU SCH ×3 (06:13→22:33)
[2017-02-04] MEDS: LEVOTHYROXINE NA 25 MCG TABLET (FP) PO SCH (06:13)
[2017-02-04 06:40] LABS: ALBUMIN 3.7 g/dl (3.4-5.0); ALK PHOS 133 U/L (45-117); ANION GAP 9 (8-16); BILIRUBIN,TOTAL 3.6 mg/dL (0.2-1.0); CALCIUM 8.8 mg/dL (8.5-10.1); CO2 29 mmol/L (21-32); CREATININE 0.8 mg/dL (0.7-1.3); GLUCOSE,RANDOM 87 mg/dL (74-106); SGOT/AST 29 U/L (15-37); SGPT/ALT 58 U/L (12-78); TOT PROT 7.5 g/dl (6.4-8.2)
[2017-02-04] MEDS: FERROUS SO4 325 MG TABLET (FP) PO SCH ×2 (10:21→22:32)
[2017-02-04] MEDS: ASPIRIN COATED 81 MG TABLET.EC PO SCH (10:21)
[2017-02-04] MEDS: TAMSULOSIN HCL 0.4 MG CAP.ER.24H (FP) PO SCH (10:22)
[2017-02-04] MEDS: FOLIC ACID 1 MG TABLET (FP) PO SCH (10:22)
[2017-02-04] MEDS: DOCUSATE SODIUM 100 MG CAPSULE (FP) PO SCH ×2 (10:22→22:32)
[2017-02-04] MEDS: METOPROLOL SUCCINATE 25 MG TAB.SR.24H (FP) PO SCH ×2 (10:22→22:32)
[2017-02-04] MEDS: FUROSEMIDE 40 MG TABLET (FP) PO SCH (10:23)
[2017-02-04] MEDS: DORZOLAMIDE 2% HCL OPHTHALMIC SOLUTION 10 ML BOTTLE OU SCH (10:23)
--- NOTE | 2017-02-04 10:47 | PN ---
Progress Note (short form) - Note Progress Note: S: no cp sob palps dizzy Current Medications Generic Name Dose Route Start Last Admin Trade Name Freq PRN Reason Stop Dose Admin Acetaminophen 650 mg 01/30/17 14:45 Tylenol - PO Q6H PRN FEVER OR PAIN Aspirin 81 mg 01/31/17 10:00 02/04/17 10:21 Ecotrin - PO 81 mg DAILY [facility] Administration Brimonidine Tartrate 1 drop 01/30/17 22:00 02/04/17 06:13 Alphagan 0.15% - OU 1 drop TID [facility] Administration Docusate Sodium 100 mg 01/30/17 22:00 02/04/17 10:22 Colace - PO 100 mg BID [facility] Administration Dorzolamide HCl 1 drop 02/04/17 10:00 02/04/17 10:23 Trusopt 2% OU 1 drop DAILY [facility] Administration Ferrous Sulfate 325 mg 01/30/17 22:00 02/04/17 10:21 Feosol - PO 325 mg BID [facility] Administration Folic Acid 1 mg 01/31/17 10:00 02/04/17 10:22 Folic Acid - PO 1 mg DAILY [facility] Administration Furosemide 40 mg 02/04/17 10:00 02/04/17 10:23 Lasix - PO 40 mg DAILY [facility] Administration Latanoprost 1 drop 02/03/17 22:00 02/03/17 22:06 Xalatan 0.005% Eye Drops - OU 1 drop HS [facility] Administration Levothyroxine Sodium 25 mcg 01/31/17 07:00 02/04/17 06:13 Synthroid - PO 25 mcg DAILY@0700 [facility] Administration Metoprolol Succinate 25 mg 01/31/17 10:00 02/04/17 10:22 Toprol Xl - PO 25 mg DAILY [facility] Administration Metoprolol Succinate 12.5 mg 02/02/17 22:00 02/03/17 21:42 Toprol Xl - PO 12.5 mg HS [facility] Administration Nitroglycerin 0.4 mg 01/30/17 15:05 Nitrostat - SL Q5M PRN FOR CHEST PAIN Simethicone 80 mg 01/30/17 14:58 Mylicon - PO Q4H PRN GAS Tamsulosin HCl 0.4 mg 01/31/17 08:30 02/04/17 10:22 Flomax - PO 0.4 mg DAILY@0830 [facility] Administration Vital Signs Period Temp Pulse Resp BP Sys/Fox Pulse Ox Last 24 Hr 97.7 F-98.2 F 70-70 18-20 101-126/71-87 100-100 nad, calm cta bl nl eff rrr nl s1, s2 2/6 murmur throughout precordium and at apex. + bs soft nt nd ext without e/c/c alert and oriented no diaphoresis CBC, BMP 02/01/17 05:00 02/04/17 05:00 ekg: v-paced tele: v-paced with underlying afib. cxr 02/04: clear lungs C 12/06 no LMCA dz; 30-50% pLAD. 80-90% mLAD, calcified; 70-80% oRCA, calcified; mild OM1; s/p xience to mLAD (no intervention on RCA). mild AI LHC 09/05 ([facility]): 90% mLAD, 80% oRCA, 50% LCX and mRCA; severe LV dysfunction; s/p PTCA/cutting balloon angioplasty to LAD and RCA MIBI 12/06 (): persantine--no STs; small area anteroapical isch; fixed IW with small area inferoapical reversibility--? isch; NORMAL EF Echo 04/2016: 1. The left ventricular size is normal. 2. Overall left ventricular systolic function is low-normal with, an EF between 50 - 55 %. 3. No regional wall motion abnormalities were noted. 4. The right ventricle is moderately enlarged. 5. The right ventricular systolic function is at the low end of normal. 6. Left atrium is moderately dilated by volume. 7. The right atrium is mildly enlarged. 8. Electronic pacemaker lead seen in the RA and RV cavities. The RA pacemaker wire is highly mobile, with possible mobile echodensity adherent to it. This structure is potentially consistent with fibrinous strand but vegetation cannot be excluded. 9. Aortic valve is severely thickened. 10. There is mild aortic regurgitation. 11. Moderate aortic stenosis. 12. Moderate mitral regurgitation is present, eccentric jet (anteriorly directed ); possibly 2 jets. 13. Moderate tricuspid regurgitation present. 14. There is severe pulmonary hypertension. 15. The right ventricular systolic pressure, as measured by Doppler, is at least 91 mmHg, assuming RA pressure of 7 mmHg (TR signal is cut off). 16. The aortic root is mildy dilated (4.1cm). Laminar, non-complex (< 4mm), atherosclerotic plaque(s) located in the aortic arch. 17. Normal inferior vena cava with less than 50% inspiratory collapse consistent with mildly estimated right atrial pressure (approximately 10 mmHg). echo 01/2017: low nl lvef, mild dec rv fcn, mod natalie, mod-sev mr, mod phtn, mild tr, mod , mod ar, mod pr, ao root dil A/P 87 yo with h/o HTN, HLD, CAD s/p angioplasty/mLAD stent with residual disease, atrial fibrillation, long QT with VT s/p AICD, moderate AR, moderate , moderate mr, HFpEF, phtn on O2, hypothyroidism, hemolytic anemia (followed at [place] for Hem), elevated bili due to [place]', thrombocytopenia, bph and mild dementia who p/w CP. CP - h/o cad, phtn, valvular/diastolic heart failure - which all may be contributing to chest discomfort. . - has residual ISR of RCA and residual LAD disease that has been medically managed. No signs of ACS. CE's neg x 2 (01/30 and 01/31). EKG Vpaced. uptitration of anti-anginals has been limited by low blood pressures in the past. Would avoid ranexa b/c of qt prolongation potential. BP's on low end on low dose norvasc here. added toprol 12.5 qhs here. -currently feeling well, no cp HFpEF with superimposed valvular disease and phtn (mod /AR/MR) - 134 lbs at last office visit when euvolemic. Unfortunately can only get bed weights here. ? accuracy. - bp/hr well controlled. - 01/31 Appears volume overloaded, will give trial of lasix 40 mg IV x 1 and reevaluate in am. May need uptitration to bid dosing. new lft abnormalities may be due to hepatic congestion, reevaluate in am. Note, tbili elevated > 3.0 even on last sjr labs (2014) potassium repletion - 02/01: Still with pulmonary edema on exam. Will increase lasix to 40 mg IV BID today, (may be able to decrease back to daily tomorrow). LFT's somewhat improved. tbili continues to rise (primarily indirect). Will repeat echo. - 02/02: LFT's improving on lasix bid, con't. May be able to transition to daily dosing tomorrow. Needs standing weights. -02/03-: vol status improved. cxr clear. cont po lasix. was on 40 qd alternating with 80 qd at home, cont same. CAD s/p angioplasty/mLAD stent with residual disease -residual dz: 70-80% ostial RCA (deferred due to pt with acute agitation during cath); 30-50% pLAD -con't asa, anti-anginals as above. -on pravastatin 10 mg on 5 days a week, can continue PMVT/torsades--? h/o long QT prior (? culprit meds); QT was profoundly prolonged (>600 msec) on presentation; s/p ICD, no shocks; - last ICD check 09/2016, LRL likely 70. con't outpatient monitoring. - aggressive lyte repletion, K > 4.0, mg > 2.0. avoid qt prolonging drugs. Afib - no h/o CVA/TIA; not a candidate for AC due to recurrent epistaxis, on ASA - currently rate controlled on low dose metoprolol HTN - can be labile, meds as above. mod dil ao root (4.1cm) - con't bb thrombocytopenia/anemia - stable, con't to monitor cardiac bennett stable for dc
--- NOTE | 2017-02-04 19:52 | PN ---
Progress Note (short form) - Note Progress Note: sitting in chair at bed side comfortable able to discuss hospital stay and discuss medical follow up at [facility] Will discuss case with Dr Mclean at time of d/c -- ( in am ) Vital Signs Period Temp Pulse Resp BP Sys/Fox Pulse Ox Last 24 Hr 98.0 F-98.6 F 70-78 12-19 96-127/71-79 100-100 Intake & Output 01/31/17 02/01/17 02/02/17 02/03/17 23:59 23:59 23:59 23:59 Intake Total 500 300 880 Output Total 1350 1275 1550 525 Balance -850 -975 -670 -525 Weight 139 lb 11.2 oz 134 lb 12.8 oz 134 lb 4.8 oz 131 lb 8 oz neck supple heart S1/S2 regular ( monitor -paced) lungs clear abd soft non tender ext no edema /C / C ECHO per Cardio note Echo 04/2016: 1. The left ventricular size is normal. 2. Overall left ventricular systolic function is low-normal with, an EF between 50 - 55 %. 3. No regional wall motion abnormalities were noted. 4. The right ventricle is moderately enlarged. 5. The right ventricular systolic function is at the low end of normal. 6. Left atrium is moderately dilated by volume. 7. The right atrium is mildly enlarged. 8. Electronic pacemaker lead seen in the RA and RV cavities. The RA pacemaker wire is highly mobile, with possible mobile echodensity adherent to it. This structure is potentially consistent with fibrinous strand but vegetation cannot be excluded. 9. Aortic valve is severely thickened. 10. There is mild aortic regurgitation. 11. Moderate aortic stenosis. 12. Moderate mitral regurgitation is present, eccentric jet (anteriorly directed ); possibly 2 jets. 13. Moderate tricuspid regurgitation present. 14. There is severe pulmonary hypertension. 15. The right ventricular systolic pressure, as measured by Doppler, is at least 91 mmHg, assuming RA pressure of 7 mmHg (TR signal is cut off). 16. The aortic root is mildy dilated (4.1cm). Laminar, non-complex (< 4mm), atherosclerotic plaque(s) located in the aortic arch. 17. Normal inferior vena cava with less than 50% inspiratory collapse consistent with mildly estimated right atrial pressure (approximately 10 mmHg). echo 01/2017: low nl lvef, mild dec rv fcn, mod natalie, mod-sev mr, mod phtn, mild tr, mod , mod ar, mod pr, ao root dil CBC, BMP 02/01/17 05:00 02/02/17 05:00 CBC, BMP 02/01/17 05:00 02/03/17 05:00 CBC, BMP 02/01/17 05:00 02/04/17 05:00 Active Medications Acetaminophen (Tylenol -) 650 mg PO Q6H PRN PRN Reason: FEVER OR PAIN Aspirin (Ecotrin -) 81 mg PO DAILY [facility] Last Admin: 02/04/17 10:21 Dose: 81 mg Brimonidine Tartrate (Alphagan 0.15% -) 1 drop OU TID [facility] Last Admin: 02/04/17 13:43 Dose: 1 drop Docusate Sodium (Colace -) 100 mg PO BID [facility] Last Admin: 02/04/17 10:22 Dose: 100 mg Dorzolamide HCl (Trusopt 2%) 1 drop OU DAILY [facility] Last Admin: 02/04/17 10:23 Dose: 1 drop Ferrous Sulfate (Feosol -) 325 mg PO BID [facility] Last Admin: 02/04/17 10:21 Dose: 325 mg Folic Acid (Folic Acid -) 1 mg PO DAILY [facility] Last Admin: 02/04/17 10:22 Dose: 1 mg Furosemide (Lasix -) 40 mg PO DAILY [facility] Last Admin: 02/04/17 10:23 Dose: 40 mg Latanoprost (Xalatan 0.005% Eye Drops -) 1 drop OU HS [facility] Last Admin: 02/03/17 22:06 Dose: 1 drop Levothyroxine Sodium (Synthroid -) 25 mcg PO DAILY@0700 [facility] Last Admin: 02/04/17 06:13 Dose: 25 mcg Metoprolol Succinate (Toprol Xl -) 25 mg PO DAILY [facility] Last Admin: 02/04/17 10:22 Dose: 25 mg Metoprolol Succinate (Toprol Xl -) 12.5 mg PO HS [facility] Last Admin: 02/03/17 21:42 Dose: 12.5 mg Nitroglycerin (Nitrostat -) 0.4 mg SL Q5M PRN PRN Reason: FOR CHEST PAIN Simethicone (Mylicon -) 80 mg PO Q4H PRN PRN Reason: GAS Tamsulosin HCl (Flomax -) 0.4 mg PO DAILY@0830 [facility] Last Admin: 02/04/17 10:22 Dose: 0.4 mg 87 yo with h/o HTN, HLD, CAD s/p angioplasty/mLAD stent with residual disease, atrial fibrillation, long QT with VT s/p AICD, moderate AR, moderate , moderate mr, HFpEF, phtn on O2, hypothyroidism, 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 # CP - resolved - probably due to fluid overload - Lasix 40 mg PO in am will alt with 80 mg as out patient - # HFpEF with superimposed valvular disease and phtn (mod /AR/MR) - daily weights as out patient - todays weight 128lb # abn LFT -h/o Gilbert's - LFT improved with diuresis - will resume statin as out patient and follow labs # afib - h/o bleeding epistaxis - rate controlled - per Cardio additional Metoprolol 12.5 mg at HS -continue asa / Metoprolol Succ 25 mg q am well tolerated #htn - monitor and med adjustment as needed #anemia - h/o hemolytic anemia - thrombocytopenia - stable --- followed at [facility]e/[facility]c # hypokalemia /eletrolye depletion - h/o prolonged qt s/p AICD - keep K > 4 - keep Mg >2 # hypothyroid - on synthroid - TSH adequate Plans arrangements for d/c in am forms completed for D/C to [facility] in am Problem List - Problems (1) Chest pain Code(s): R07.9 - CHEST PAIN, UNSPECIFIED (2) CAD (coronary artery disease) Code(s): I25.10 - ATHSCL HEART DISEASE OF [place] CORONARY ARTERY W/O ANG PCTRS (3) HTN (hypertension) Code(s): I10 - ESSENTIAL (PRIMARY) HYPERTENSION (4) Atrial fibrillation Code(s): I48.91 - UNSPECIFIED ATRIAL FIBRILLATION Qualifiers: Atrial fibrillation type: chronic Qualified Code(s): I48.2 - Chronic atrial fibrillation; I48.2 - Chronic atrial fibrillation; I48.2 - Chronic atrial fibrillation; I48.2 - Chronic atrial fibrillation (5) BPH (benign prostatic hypertrophy) Code(s): N40.0 - BENIGN PROSTATIC HYPERPLASIA WITHOUT LOWER URINRY TRACT SYMP (6) Anemia Code(s): D64.9 - ANEMIA, UNSPECIFIED (7) Gilbert disease Code(s): E80.4 - GILBERT SYNDROME (8) Hypothyroid Code(s): E03.9 - HYPOTHYROIDISM, UNSPECIFIED
[2017-02-04] MEDS: LATANOPROST 0.005% OPHTH SOLN 2.5ML BOTTLE OU SCH (22:33)
[2017-02-05] MEDS ORDERED: PT OWN MED DRAWER 7, Y5N ONE ×2 (06:39→06:54)
[2017-02-05] MEDS: BRIMONIDINE TARTRATE 0.15% OPHTHALMIC 5 ML BOTTLE OU SCH ×3 (06:46→22:39)
[2017-02-05] MEDS: LEVOTHYROXINE NA 25 MCG TABLET (FP) PO SCH (06:46)
[2017-02-05] MEDS: DOCUSATE SODIUM 100 MG CAPSULE (FP) PO SCH ×2 (09:40→22:36)
[2017-02-05] MEDS: TAMSULOSIN HCL 0.4 MG CAP.ER.24H (FP) PO SCH (09:40)
[2017-02-05] MEDS: ASPIRIN COATED 81 MG TABLET.EC PO SCH (09:41)
[2017-02-05] MEDS: FOLIC ACID 1 MG TABLET (FP) PO SCH (09:41)
[2017-02-05] MEDS: METOPROLOL SUCCINATE 25 MG TAB.SR.24H (FP) PO SCH ×2 (09:41→22:37)
[2017-02-05] MEDS: FERROUS SO4 325 MG TABLET (FP) PO SCH ×2 (09:41→22:36)
[2017-02-05] MEDS: FUROSEMIDE 40 MG TABLET (FP) PO SCH (09:41)
[2017-02-05] MEDS: DORZOLAMIDE 2% HCL OPHTHALMIC SOLUTION 10 ML BOTTLE OU SCH (09:42)
--- NOTE | 2017-02-05 10:19 | PN ---
Progress Note (short form) - Note Progress Note: S: no cp sob palps dizzy Current Medications Generic Name Dose Route Start Last Admin Trade Name Freq PRN Reason Stop Dose Admin Acetaminophen 650 mg 01/30/17 14:45 Tylenol - PO Q6H PRN FEVER OR PAIN Aspirin 81 mg 01/31/17 10:00 02/05/17 09:41 Ecotrin - PO 81 mg DAILY KISHAN Administration Brimonidine Tartrate 1 drop 01/30/17 22:00 02/05/17 06:46 Alphagan 0.15% - OU 1 drop TID KISHAN Administration Docusate Sodium 100 mg 01/30/17 22:00 02/05/17 09:40 Colace - PO 100 mg BID KISHAN Administration Dorzolamide HCl 1 drop 02/04/17 10:00 02/05/17 09:42 Trusopt 2% OU 1 drop DAILY KISHAN Administration Ferrous Sulfate 325 mg 01/30/17 22:00 02/05/17 09:41 Feosol - PO 325 mg BID KISHAN Administration Folic Acid 1 mg 01/31/17 10:00 02/05/17 09:41 Folic Acid - PO 1 mg DAILY KISHAN Administration Furosemide 40 mg 02/04/17 10:00 02/05/17 09:41 Lasix - PO 40 mg DAILY KISHAN Administration Latanoprost 1 drop 02/03/17 22:00 02/04/17 22:33 Xalatan 0.005% Eye Drops - OU 1 drop HS KISHAN Administration Levothyroxine Sodium 25 mcg 01/31/17 07:00 02/05/17 06:46 Synthroid - PO 25 mcg DAILY@0700 [facility] Administration Metoprolol Succinate 25 mg 01/31/17 10:00 02/05/17 09:41 Toprol Xl - PO 25 mg DAILY KISHAN Administration Metoprolol Succinate 12.5 mg 02/02/17 22:00 02/04/17 22:32 Toprol Xl - PO 12.5 mg HS [facility] Administration Nitroglycerin 0.4 mg 01/30/17 15:05 Nitrostat - SL Q5M PRN FOR CHEST PAIN Simethicone 80 mg 01/30/17 14:58 Mylicon - PO Q4H PRN GAS Tamsulosin HCl 0.4 mg 01/31/17 08:30 02/05/17 09:40 Flomax - PO 0.4 mg DAILY@0830 KISHAN Administration Vital Signs Period Temp Pulse Resp BP Sys/Fox Pulse Ox Last 24 Hr 97.6 F-98.9 F 70-74 18-20 116-135/68-85 95-100 nad, calm cta bl nl eff rrr nl s1, s2 2/6 murmur throughout precordium and at apex. + bs soft nt nd ext without e/c/c alert and oriented no diaphoresis CBC, BMP 02/01/17 05:00 02/04/17 05:00 ekg: v-paced tele: v-paced with underlying afib. cxr 02/04: clear lungs C 12/06 no LMCA dz; 30-50% pLAD. 80-90% mLAD, calcified; 70-80% oRCA, calcified; mild OM1; s/p xience to mLAD (no intervention on RCA). mild AI [facility] 09/05 ([facility]): 90% mLAD, 80% oRCA, 50% LCX and mRCA; severe LV dysfunction; s/p PTCA/cutting balloon angioplasty to LAD and RCA MIBI 12/06 (): persantine--no STs; small area anteroapical isch; fixed IW with small area inferoapical reversibility--? isch; NORMAL EF Echo 04/2016: 1. The left ventricular size is normal. 2. Overall left ventricular systolic function is low-normal with, an EF between 50 - 55 %. 3. No regional wall motion abnormalities were noted. 4. The right ventricle is moderately enlarged. 5. The right ventricular systolic function is at the low end of normal. 6. Left atrium is moderately dilated by volume. 7. The right atrium is mildly enlarged. 8. Electronic pacemaker lead seen in the RA and RV cavities. The RA pacemaker wire is highly mobile, with possible mobile echodensity adherent to it. This structure is potentially consistent with fibrinous strand but vegetation cannot be excluded. 9. Aortic valve is severely thickened. 10. There is mild aortic regurgitation. 11. Moderate aortic stenosis. 12. Moderate mitral regurgitation is present, eccentric jet (anteriorly directed ); possibly 2 jets. 13. Moderate tricuspid regurgitation present. 14. There is severe pulmonary hypertension. 15. The right ventricular systolic pressure, as measured by Doppler, is at least 91 mmHg, assuming RA pressure of 7 mmHg (TR signal is cut off). 16. The aortic root is mildy dilated (4.1cm). Laminar, non-complex (< 4mm), atherosclerotic plaque(s) located in the aortic arch. 17. Normal inferior vena cava with less than 50% inspiratory collapse consistent with mildly estimated right atrial pressure (approximately 10 mmHg). 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 CP - h/o cad, phtn, valvular/diastolic heart failure - which all may be contributing to chest discomfort. . - has residual ISR of RCA and residual LAD disease that has been medically managed. No signs of ACS. CE's neg x 2 (01/30 and 01/31). EKG Vpaced. uptitration of anti-anginals has been limited by low blood pressures in the past. Would avoid ranexa b/c of qt prolongation potential. BP's on low end on low dose norvasc here. added toprol 12.5 qhs here. -currently feeling well, no cp HFpEF with superimposed valvular disease and phtn (mod /AR/MR) - 134 lbs at last office visit when euvolemic. Unfortunately can only get bed weights here. ? accuracy. - bp/hr well controlled. - 01/31 Appears volume overloaded, will give trial of lasix 40 mg IV x 1 and reevaluate in am. May need uptitration to bid dosing. new lft abnormalities may be due to hepatic congestion, reevaluate in am. Note, tbili elevated > 3.0 even on last sjr labs (2014) potassium repletion - 02/01: Still with pulmonary edema on exam. Will increase lasix to 40 mg IV BID today, (may be able to decrease back to daily tomorrow). LFT's somewhat improved. tbili continues to rise (primarily indirect). Will repeat echo. - 02/02: LFT's improving on lasix bid, con't. May be able to transition to daily dosing tomorrow. Needs standing weights. -02/03-: vol status improved. cxr clear. cont po lasix. was on 40 qd alternating with 80 qd at home, cont same. CAD s/p angioplasty/mLAD stent with residual disease -residual dz: 70-80% ostial RCA (deferred due to pt with acute agitation during cath); 30-50% pLAD -con't asa, anti-anginals as above. -on pravastatin 10 mg on 5 days a week, can continue PMVT/torsades--? h/o long QT prior (? culprit meds); QT was profoundly prolonged (>600 msec) on presentation; s/p ICD, no shocks; - last ICD check 09/2016, LRL likely 70. con't outpatient monitoring. - aggressive lyte repletion, K > 4.0, mg > 2.0. avoid qt prolonging drugs. Afib - no h/o CVA/TIA; not a candidate for AC due to recurrent epistaxis, on ASA - currently rate controlled on low dose metoprolol HTN -stable mod dil ao root (4.1cm) - con't bb thrombocytopenia/anemia - stable, con't to monitor cardiac bennett stable for dc
[2017-02-05] MEDS: LATANOPROST 0.005% OPHTH SOLN 2.5ML BOTTLE OU SCH (22:39)
--- NOTE | 2017-02-05 23:41 | PN ---
Progress Note (short form) - Note Progress Note: patient in bed comfortable - looking forward to d/c this morning however later in the day with episode of 'diarrhea ' -- per nursing no blood and no clinical decompensation -- however patient concerned and not feeling as well therefore decision to watch over night arrangement for transfer back to [facility] in the am Vital Signs Period Temp Pulse Resp BP Sys/Fox Pulse Ox Last 24 Hr 97.3 F-98.4 F 70-72 16-20 109-144/68-88 100-100 Intake & Output 02/02/17 02/03/17 02/04/17 02/05/17 23:59 23:59 23:59 23:59 Intake Total 880 430 460 Output Total 2506 059 9611 2000 Balance -771 -366 -495 -1434 Weight 134 lb 4.8 oz 131 lb 8 oz 128 lb 6.4 oz 136 lb 1.6 oz unclear if patients weight of 136 today is accurate today was started on PO lasix telemetry -- paced rhythm neck supple heart S1/S2 regular ( monitor -paced) lungs clear abd soft non tender ext no edema /C / C ECHO per Cardio note Echo 04/2016: 1. The left ventricular size is normal. 2. Overall left ventricular systolic function is low-normal with, an EF between 50 - 55 %. 3. No regional wall motion abnormalities were noted. 4. The right ventricle is moderately enlarged. 5. The right ventricular systolic function is at the low end of normal. 6. Left atrium is moderately dilated by volume. 7. The right atrium is mildly enlarged. 8. Electronic pacemaker lead seen in the RA and RV cavities. The RA pacemaker wire is highly mobile, with possible mobile echodensity adherent to it. This structure is potentially consistent with fibrinous strand but vegetation cannot be excluded. 9. Aortic valve is severely thickened. 10. There is mild aortic regurgitation. 11. Moderate aortic stenosis. 12. Moderate mitral regurgitation is present, eccentric jet (anteriorly directed ); possibly 2 jets. 13. Moderate tricuspid regurgitation present. 14. There is severe pulmonary hypertension. 15. The right ventricular systolic pressure, as measured by Doppler, is at least 91 mmHg, assuming RA pressure of 7 mmHg (TR signal is cut off). 16. The aortic root is mildy dilated (4.1cm). Laminar, non-complex (< 4mm), atherosclerotic plaque(s) located in the aortic arch. 17. Normal inferior vena cava with less than 50% inspiratory collapse consistent with mildly estimated right atrial pressure (approximately 10 mmHg). echo 01/2017: low nl lvef, mild dec rv fcn, mod natalie, mod-sev mr, mod phtn, mild tr, mod , mod ar, mod pr, ao root dil CBC, BMP 02/01/17 05:00 02/02/17 05:00 02/03/17 05:00 02/04/17 05:00 Active Medications Acetaminophen (Tylenol -) 650 mg PO Q6H PRN PRN Reason: FEVER OR PAIN Aspirin (Ecotrin -) 81 mg PO DAILY [facility] Last Admin: 02/04/17 10:21 Dose: 81 mg Brimonidine Tartrate (Alphagan 0.15% -) 1 drop OU TID [facility] Last Admin: 02/04/17 13:43 Dose: 1 drop Docusate Sodium (Colace -) 100 mg PO BID [facility] Last Admin: 02/04/17 10:22 Dose: 100 mg Dorzolamide HCl (Trusopt 2%) 1 drop OU DAILY [facility] Last Admin: 02/04/17 10:23 Dose: 1 drop Ferrous Sulfate (Feosol -) 325 mg PO BID [facility] Last Admin: 02/04/17 10:21 Dose: 325 mg Folic Acid (Folic Acid -) 1 mg PO DAILY [facility] Last Admin: 02/04/17 10:22 Dose: 1 mg Furosemide (Lasix -) 40 mg PO DAILY [facility] Last Admin: 02/04/17 10:23 Dose: 40 mg Latanoprost (Xalatan 0.005% Eye Drops -) 1 drop OU HS [facility] Last Admin: 02/03/17 22:06 Dose: 1 drop Levothyroxine Sodium (Synthroid -) 25 mcg PO DAILY@0700 [facility] Last Admin: 02/04/17 06:13 Dose: 25 mcg Metoprolol Succinate (Toprol Xl -) 25 mg PO DAILY [facility] Last Admin: 02/04/17 10:22 Dose: 25 mg Metoprolol Succinate (Toprol Xl -) 12.5 mg PO HS [facility] Last Admin: 02/03/17 21:42 Dose: 12.5 mg Nitroglycerin (Nitrostat -) 0.4 mg SL Q5M PRN PRN Reason: FOR CHEST PAIN Simethicone (Mylicon -) 80 mg PO Q4H PRN PRN Reason: GAS Tamsulosin HCl (Flomax -) 0.4 mg PO DAILY@0830 [facility]ISH[facility] Last Admin: 02/04/17 10:22 Dose: 0.4 mg 87 yo with h/o HTN, HLD, CAD s/p angioplasty/mLAD stent with residual disease, atrial fibrillation, long QT with VT s/p AICD, moderate AR, moderate , moderate mr, HFpEF, phtn on O2, hypothyroidism, hemolytic anemia (followed at [facility] for Heme), 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 # CP - resolved - probably due to fluid overload - Lasix 40 mg PO in am will alt with 80 mg as out patient - # HFpEF with superimposed valvular disease and phtn (mod /AR/MR) - daily weights as out patient - todays weight 128lb # abn LFT -h/o Gilbert's - LFT improved with diuresis - will resume statin as out patient and follow labs # afib - h/o bleeding epistaxis - rate controlled - per Cardio additional Metoprolol 12.5 mg at HS -continue asa / Metoprolol Succ 25 mg q am well tolerated #htn - monitor and med adjustment as needed #anemia - h/o hemolytic anemia - thrombocytopenia - stable --- followed at [facility]e/Onc # hypokalemia /eletrolye depletion - h/o prolonged qt s/p AICD - keep K > 4 - keep Mg >2 # hypothyroid - on synthroid - TSH adequate hold d/c today arrangements for d/c in am repeat lytes in am Problem List - Problems (1) Chest pain Code(s): R07.9 - CHEST PAIN, UNSPECIFIED (2) CAD (coronary artery disease) Code(s): I25.10 - ATHSCL HEART DISEASE OF [place] CORONARY ARTERY W/O ANG PCTRS (3) HTN (hypertension) Code(s): I10 - ESSENTIAL (PRIMARY) HYPERTENSION (4) Atrial fibrillation Code(s): I48.91 - UNSPECIFIED ATRIAL FIBRILLATION Qualifiers: Atrial fibrillation type: chronic Qualified Code(s): I48.2 - Chronic atrial fibrillation; I48.2 - Chronic atrial fibrillation; I48.2 - Chronic atrial fibrillation; I48.2 - Chronic atrial fibrillation (5) BPH (benign prostatic hypertrophy) Code(s): N40.0 - BENIGN PROSTATIC HYPERPLASIA WITHOUT LOWER URINRY TRACT SYMP (6) Anemia Code(s): D64.9 - ANEMIA, UNSPECIFIED (7) Gilbert disease Code(s): E80.4 - GILBERT SYNDROME (8) Hypothyroid Code(s): E03.9 - HYPOTHYROIDISM, UNSPECIFIED
[2017-02-06 06:11] LABS: MCH 29.5 pg (25.7-33.7); MCHC 33.3 g/dl (32.0-35.9); MEAN CELL VOLUME 88.4 fl (80-96); MEAN PLT VOLUME 9.2 fl (7.5-11.1); PLATELET COUNT 151 K/MM3 (134-434); RDW 16.8 % (11.9-15.9); WHITE BLOOD COUNT 5.9 K/mm3 (4.0-10.0)
[2017-02-06] MEDS: BRIMONIDINE TARTRATE 0.15% OPHTHALMIC 5 ML BOTTLE OU SCH (06:24)
[2017-02-06] MEDS: LEVOTHYROXINE NA 25 MCG TABLET (FP) PO SCH (06:24)
[2017-02-06 06:37] LABS: ANION GAP 5 (8-16); CALCIUM 8.6 mg/dL (8.5-10.1); CO2 29 mmol/L (21-32); GLUCOSE,RANDOM 80 mg/dL (74-106)
[2017-02-06 06:38] LABS: CREATININE 0.8 mg/dL (0.7-1.3)
[2017-02-06] MEDS: TAMSULOSIN HCL 0.4 MG CAP.ER.24H (FP) PO SCH (09:06)
[2017-02-06] MEDS: FERROUS SO4 325 MG TABLET (FP) PO SCH (09:07)
[2017-02-06] MEDS: ASPIRIN COATED 81 MG TABLET.EC PO SCH (09:07)
[2017-02-06] MEDS: FOLIC ACID 1 MG TABLET (FP) PO SCH (09:07)
[2017-02-06] MEDS: METOPROLOL SUCCINATE 25 MG TAB.SR.24H (FP) PO SCH (09:07)
[2017-02-06] MEDS: DOCUSATE SODIUM 100 MG CAPSULE (FP) PO SCH (09:07)
[2017-02-06] MEDS: DORZOLAMIDE 2% HCL OPHTHALMIC SOLUTION 10 ML BOTTLE OU SCH (09:08)
--- NOTE | 2017-02-06 09:27 | PN ---
Progress Note (short form) - Note Progress Note: S: no cp sob palps dizzy Current Medications Generic Name Dose Route Start Last Admin Trade Name Freq PRN Reason Stop Dose Admin Acetaminophen 650 mg 01/30/17 14:45 Tylenol - PO Q6H PRN FEVER OR PAIN Aspirin 81 mg 01/31/17 10:00 02/06/17 09:07 Ecotrin - PO 81 mg DAILY KISHAN Administration Brimonidine Tartrate 1 drop 01/30/17 22:00 02/06/17 06:24 Alphagan 0.15% - OU 1 drop TID KISHAN Administration Docusate Sodium 100 mg 01/30/17 22:00 02/06/17 09:07 Colace - PO Not Given BID KISHAN Dorzolamide HCl 1 drop 02/04/17 10:00 02/06/17 09:08 Trusopt 2% OU 1 drop DAILY KISHAN Administration Ferrous Sulfate 325 mg 01/30/17 22:00 02/06/17 09:07 Feosol - PO 325 mg BID KISHAN Administration Folic Acid 1 mg 01/31/17 10:00 02/06/17 09:07 Folic Acid - PO 1 mg DAILY KISHAN Administration Furosemide 80 mg 02/06/17 10:00 02/06/17 09:07 Lasix - PO 80 mg DAILY KISHAN Administration Latanoprost 1 drop 02/03/17 22:00 02/05/17 22:39 Xalatan 0.005% Eye Drops - OU 1 drop HS KISHAN Administration Levothyroxine Sodium 25 mcg 01/31/17 07:00 02/06/17 06:24 Synthroid - PO 25 mcg DAILY@0700 KISHAN Administration Metoprolol Succinate 25 mg 01/31/17 10:00 02/06/17 09:07 Toprol Xl - PO 25 mg DAILY KISHAN Administration Metoprolol Succinate 12.5 mg 02/02/17 22:00 02/05/17 22:37 Toprol Xl - PO 12.5 mg HS KISHAN Administration Nitroglycerin 0.4 mg 01/30/17 15:05 Nitrostat - SL Q5M PRN FOR CHEST PAIN Simethicone 80 mg 01/30/17 14:58 Mylicon - PO Q4H PRN GAS Tamsulosin HCl 0.4 mg 01/31/17 08:30 02/06/17 09:06 Flomax - PO 0.4 mg DAILY@0830 [facility] Administration Vital Signs Period Temp Pulse Resp BP Sys/Fox Pulse Ox Last 24 Hr 97.3 F-98.4 F 70-72 16-20 109-144/73-88 100 nad, calm cta bl nl eff rrr nl s1, s2 2/6 murmur throughout precordium and at apex. + bs soft nt nd ext without e/c/c alert and oriented no diaphoresis CBC, BMP 02/06/17 05:10 02/06/17 05:10 ekg: v-paced tele: v-paced with underlying afib. cxr 02/04: clear lungs C 12/06 no LMCA dz; 30-50% pLAD. 80-90% mLAD, calcified; 70-80% oRCA, calcified; mild OM1; s/p xience to mLAD (no intervention on RCA). mild AI [facility] 09/05 ([facility] 90% mLAD, 80% oRCA, 50% LCX and mRCA; severe LV dysfunction; s/p PTCA/cutting balloon angioplasty to LAD and RCA MIBI 12/06 (): persantine--no STs; small area anteroapical isch; fixed IW with small area inferoapical reversibility--? isch; NORMAL EF Echo 04/2016: 1. The left ventricular size is normal. 2. Overall left ventricular systolic function is low-normal with, an EF between 50 - 55 %. 3. No regional wall motion abnormalities were noted. 4. The right ventricle is moderately enlarged. 5. The right ventricular systolic function is at the low end of normal. 6. Left atrium is moderately dilated by volume. 7. The right atrium is mildly enlarged. 8. Electronic pacemaker lead seen in the RA and RV cavities. The RA pacemaker wire is highly mobile, with possible mobile echodensity adherent to it. This structure is potentially consistent with fibrinous strand but vegetation cannot be excluded. 9. Aortic valve is severely thickened. 10. There is mild aortic regurgitation. 11. Moderate aortic stenosis. 12. Moderate mitral regurgitation is present, eccentric jet (anteriorly directed ); possibly 2 jets. 13. Moderate tricuspid regurgitation present. 14. There is severe pulmonary hypertension. 15. The right ventricular systolic pressure, as measured by Doppler, is at least 91 mmHg, assuming RA pressure of 7 mmHg (TR signal is cut off). 16. The aortic root is mildy dilated (4.1cm). Laminar, non-complex (< 4mm), atherosclerotic plaque(s) located in the aortic arch. 17. Normal inferior vena cava with less than 50% inspiratory collapse consistent with mildly estimated right atrial pressure (approximately 10 mmHg). 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 CP - h/o cad, phtn, valvular/diastolic heart failure - which all may be contributing to chest discomfort. . - has residual ISR of RCA and residual LAD disease that has been medically managed. No signs of ACS. CE's neg x 2 (01/30 and 01/31). EKG Vpaced. uptitration of anti-anginals has been limited by low blood pressures in the past. Would avoid ranexa b/c of qt prolongation potential. BP's on low end on low dose norvasc here. added toprol 12.5 qhs here. -currently feeling well, no cp HFpEF with superimposed valvular disease and phtn (mod /AR/MR) - 134 lbs at last office visit when euvolemic. Unfortunately can only get bed weights here. ? accuracy. - bp/hr well controlled. - 01/31 Appears volume overloaded, will give trial of lasix 40 mg IV x 1 and reevaluate in am. May need uptitration to bid dosing. new lft abnormalities may be due to hepatic congestion, reevaluate in am. Note, tbili elevated > 3.0 even on last sjr labs (2014) potassium repletion - 02/01: Still with pulmonary edema on exam. Will increase lasix to 40 mg IV BID today, (may be able to decrease back to daily tomorrow). LFT's somewhat improved. tbili continues to rise (primarily indirect). Will repeat echo. - 02/02: LFT's improving on lasix bid, con't. May be able to transition to daily dosing tomorrow. Needs standing weights. -02/03-14: vol status improved. cxr clear. cont po lasix. was on 40 qd alternating with 80 qd at home, cont same. CAD s/p angioplasty/mLAD stent with residual disease -residual dz: 70-80% ostial RCA (deferred due to pt with acute agitation during cath); 30-50% pLAD -con't asa, anti-anginals as above. -on pravastatin 10 mg on 5 days a week, can continue PMVT/torsades--? h/o long QT prior (? culprit meds); QT was profoundly prolonged (>600 msec) on presentation; s/p ICD, no shocks; - last ICD check 09/2016, LRL likely 70. con't outpatient monitoring. - aggressive lyte repletion, K > 4.0, mg > 2.0. avoid qt prolonging drugs. Afib - no h/o CVA/TIA; not a candidate for AC due to recurrent epistaxis, on ASA - currently rate controlled on low dose metoprolol HTN -stable mod dil ao root (4.1cm) - con't bb thrombocytopenia/anemia - stable, con't to monitor scheduled to go home this AM, cardiac bennett stable for dc
[2017-02-06 09:28] LABS: PLATELET COMMENT2 NO CLOTTING DETECTED; PLATELET COMMENT3 FEW GIANT PLTS; PLATELET ESTIMATE ADEQUATE (NORMAL)
[2017-02-06 09:29] LABS: BASOPHIL (MANUAL) 9 % (0-2.0); REACTIVE LYMPHOCYTES 3 % (0-80); TOTAL CELLS COUNTED 100
[2017-02-06] MEDS ORDERED: FUROSEMIDE 40 MG TABLET (FP) PO SCH (10:00)
--- NOTE | 2017-02-06 11:43 | PN ---
Progress Note (short form) - Note Progress Note: patient in bed comfortable - looking forward to d/c this morning arrangement for transfer back to [facility] today Vital Signs Period Temp Pulse Resp BP Sys/Fox Pulse Ox Last 24 Hr 97.3 F-98.4 F 70-72 16-20 109-144/68-88 100-100 Intake & Output 02/03/17 02/04/17 02/05/17 02/06/17 23:59 23:59 23:59 23:59 Intake Total 430 460 100 Output Total 525 1050 2000 200 Balance -525 -620 -1540 -100 Weight 131 lb 8 oz 128 lb 6.4 oz 136 lb 1.6 oz today was started on PO lasix 80 mg telemetry -- paced rhythm neck supple heart S1/S2 regular ( monitor -paced) lungs clear abd soft non tender ext no edema /C / C ECHO per Cardio note Echo 04/2016: 1. The left ventricular size is normal. 2. Overall left ventricular systolic function is low-normal with, an EF between 50 - 55 %. 3. No regional wall motion abnormalities were noted. 4. The right ventricle is moderately enlarged. 5. The right ventricular systolic function is at the low end of normal. 6. Left atrium is moderately dilated by volume. 7. The right atrium is mildly enlarged. 8. Electronic pacemaker lead seen in the RA and RV cavities. The RA pacemaker wire is highly mobile, with possible mobile echodensity adherent to it. This structure is potentially consistent with fibrinous strand but vegetation cannot be excluded. 9. Aortic valve is severely thickened. 10. There is mild aortic regurgitation. 11. Moderate aortic stenosis. 12. Moderate mitral regurgitation is present, eccentric jet (anteriorly directed ); possibly 2 jets. 13. Moderate tricuspid regurgitation present. 14. There is severe pulmonary hypertension. 15. The right ventricular systolic pressure, as measured by Doppler, is at least 91 mmHg, assuming RA pressure of 7 mmHg (TR signal is cut off). 16. The aortic root is mildy dilated (4.1cm). Laminar, non-complex (< 4mm), atherosclerotic plaque(s) located in the aortic arch. 17. Normal inferior vena cava with less than 50% inspiratory collapse consistent with mildly estimated right atrial pressure (approximately 10 mmHg). echo 01/2017: low nl lvef, mild dec rv fcn, mod natalie, mod-sev mr, mod phtn, mild tr, mod , mod ar, mod pr, ao root dil CBC, BMP 02/01/17 05:00 02/02/17 05:00 02/03/17 05:00 02/04/17 05:00 CBC, BMP 02/06/17 05:10 02/06/17 05:10 Active Medications Acetaminophen (Tylenol -) 650 mg PO Q6H PRN PRN Reason: FEVER OR PAIN Aspirin (Ecotrin -) 81 mg PO DAILY [facility] Last Admin: 02/04/17 10:21 Dose: 81 mg Brimonidine Tartrate (Alphagan 0.15% -) 1 drop OU TID [facility] Last Admin: 02/04/17 13:43 Dose: 1 drop Docusate Sodium (Colace -) 100 mg PO BID [facility] Last Admin: 02/04/17 10:22 Dose: 100 mg Dorzolamide HCl (Trusopt 2%) 1 drop OU DAILY [facility] Last Admin: 02/04/17 10:23 Dose: 1 drop Ferrous Sulfate (Feosol -) 325 mg PO BID [facility] Last Admin: 02/04/17 10:21 Dose: 325 mg Folic Acid (Folic Acid -) 1 mg PO DAILY [facility] Last Admin: 02/04/17 10:22 Dose: 1 mg Furosemide (Lasix -) 40 mg PO DAILY [facility] Last Admin: 02/04/17 10:23 Dose: 40 mg Latanoprost (Xalatan 0.005% Eye Drops -) 1 drop OU HS [facility] Last Admin: 02/03/17 22:06 Dose: 1 drop Levothyroxine Sodium (Synthroid -) 25 mcg PO DAILY@0700 [facility] Last Admin: 02/04/17 06:13 Dose: 25 mcg Metoprolol Succinate (Toprol Xl -) 25 mg PO DAILY [facility] Last Admin: 02/04/17 10:22 Dose: 25 mg Metoprolol Succinate (Toprol Xl -) 12.5 mg PO HS [facility] Last Admin: 02/03/17 21:42 Dose: 12.5 mg Nitroglycerin (Nitrostat -) 0.4 mg SL Q5M PRN PRN Reason: FOR CHEST PAIN Simethicone (Mylicon -) 80 mg PO Q4H PRN PRN Reason: GAS Tamsulosin HCl (Flomax -) 0.4 mg PO DAILY@0830 [facility] Last Admin: 02/04/17 10:22 Dose: 0.4 mg 87 yo with h/o HTN, HLD, CAD s/p angioplasty/mLAD stent with residual disease, atrial fibrillation, long QT with VT s/p AICD, moderate AR, moderate , moderate mr, HFpEF, phtn on O2, hypothyroidism, 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 # CP - resolved - probably due to fluid overload - Lasix 40 mg PO in am will alt with 80 mg as out patient - # HFpEF with superimposed valvular disease and phtn (mod /AR/MR) - daily weights as out patient - todays weight 128lb # abn LFT -h/o Gilbert's - LFT improved with diuresis - will resume statin as out patient and follow labs # afib - h/o bleeding epistaxis - rate controlled - per Cardio additional Metoprolol 12.5 mg at HS -continue asa / Metoprolol Succ 25 mg q am well tolerated #htn - monitor and med adjustment as needed #anemia - h/o hemolytic anemia - thrombocytopenia - stable --- followed at [facility]/Onc # hypokalemia /eletrolye depletion - h/o prolonged qt s/p AICD - keep K > 4 - keep Mg >2 # hypothyroid - on synthroid - TSH adequate d/c today arrangements for d/c in am Problem List - Problems (1) Chest pain Code(s): R07.9 - CHEST PAIN, UNSPECIFIED (2) CAD (coronary artery disease) Code(s): I25.10 - ATHSCL HEART DISEASE OF [place] CORONARY ARTERY W/O ANG PCTRS (3) HTN (hypertension) Code(s): I10 - ESSENTIAL (PRIMARY) HYPERTENSION (4) Atrial fibrillation Code(s): I48.91 - UNSPECIFIED ATRIAL FIBRILLATION Qualifiers: Atrial fibrillation type: chronic Qualified Code(s): I48.2 - Chronic atrial fibrillation; I48.2 - Chronic atrial fibrillation; I48.2 - Chronic atrial fibrillation; I48.2 - Chronic atrial fibrillation (5) BPH (benign prostatic hypertrophy) Code(s): N40.0 - BENIGN PROSTATIC HYPERPLASIA WITHOUT LOWER URINRY TRACT SYMP (6) Anemia Code(s): D64.9 - ANEMIA, UNSPECIFIED (7) Gilbert disease Code(s): E80.4 - GILBERT SYNDROME (8) Hypothyroid Code(s): E03.9 - HYPOTHYROIDISM, UNSPECIFIED
[2017-02-06 13:08] VITALS: BP 102/68; PULSE 72; TEMP 98
== END 2017-02-06 13:50 | DRG 314 ==
LOC: JER 12:02 → JERBED 13:57 → J2W 18:33
PROVIDERS: ADMIT Family Medicine; ATTEND Family Medicine
DX: I27.29 Other secondary pulmonary hypertension (principal); I50.33 Acute on chronic diastolic (congestive) heart failure; D58.9 Hereditary hemolytic anemia, unspecified; I50.32 Chronic diastolic (congestive) heart failure; E87.70 Fluid overload, unspecified; E78.5 Hyperlipidemia, unspecified; I25.10 Atherosclerotic heart disease of native coronary artery without angina pectoris; I45.81 Long QT syndrome; E03.9 Hypothyroidism, unspecified; D64.9 Anemia, unspecified; F03.90 Unspecified dementia, unspecified severity, without behavioral disturbance, psychotic disturbance, mood disturbance, and anxiety; Z88.0 Allergy status to penicillin; E80.4 Gilbert syndrome; N40.0 Benign prostatic hyperplasia without lower urinary tract symptoms; I35.0 Nonrheumatic aortic (valve) stenosis; I35.1 Nonrheumatic aortic (valve) insufficiency; I34.0 Nonrheumatic mitral (valve) insufficiency; I11.0 Hypertensive heart disease with heart failure; Z99.81 Dependence on supplemental oxygen; D69.6 Thrombocytopenia, unspecified; E87.6 Hypokalemia; Z87.891 Personal history of nicotine dependence; R19.7 Diarrhea, unspecified; I36.1 Nonrheumatic tricuspid (valve) insufficiency; I48.2 Chronic atrial fibrillation
CPT/HCPCS: 36415; 71010-TC; 80048; 80053; 80061; 80076; 83721; 83735; 84100; 84443; 84484; 85025; 85027; 85610; 85730; 93005; 93010; 93306-TC; 99285-25

== ENCOUNTER 2017-02-08 11:21 | Emergency (ER) | payer OTHER, BC ==
--- NOTE | 2017-02-08 11:28 | PDOC ---
History of Present Illness - History of Present Illness Initial Comments: 02/08/17 11:56 The patient is a 87-year-old male with a significant past medical history of HTN , HLD, CAD s/p stents, atrial fibrillation, long QT s/p AICD, hypothyroidism, anemia, liver disease, and dementia, who presents [facility] department [facility] with sudden onset of abdominal pain this morning after eating breakfast. The patient had a recent 7 day admission, discharged on 02/06 for CHF. The patient had an echocardiogram performed on 02/06 which revealed a 50-55 % ejection fraction. He reports the pain is sharp, localized to the region across his abdominal midsection with mild radiation into the center of his chest. The patient states his pain is intermittent and reports the severity of his abdominal pain fluctuates. He also can not attest to any alleviating or exacerbating factors of pain. He denies pain at this current moment, but reports pain "about 30 minutes ago." He denies radiation of pain. He reports mild nausea when his pain exacerbates. He denies chest pain now. LNBM: Wednesday after [facility] Pt denies any chest pain, SOB, pain with inspiration, swelling in the LEs. Pt denies headache and dizziness. Pt denies fever, chills, vomit, diarrhea and constipation. Pt denies dysuria, increased frequency, urgency and hematuria. Allergies: penicillins, lactose Past Surgical History: stents and pacemaker Social History: No toxic habits reported Picture Engraver: Dr. Catalan PCP - Dr. Morejon <Dianne Robison - Last Filed: 02/08/17 15:07> <Renetta Dietz - Last Filed: 02/08/17 15:40> - General Stated Complaint: CHEST PAIN Time Seen by Provider: 02/08/17 11:27 Past History <Dianne Robison - Last Filed: 02/08/17 15:07> - Past Medical History Anemia: Yes Asthma: No Cancer: No Cardiac Disorders: Yes (PACEMAKER, Afib,CAD) COPD: No CHF: (DIASTOLIC HEART FAILURE) Dementia: Yes Diabetes: No GI Disorders: No Disorders: Yes (BPH) HTN: Yes Hypercholesterolemia: Yes Liver Disease: Yes Seizures: No Thyroid Disease: Yes (hypothyroid) - Surgical History Abdominal Surgery: Yes Appendectomy: Yes Cardiac Surgery: Yes (PACEMAKER) - Immunization History Immunization Up to Date: Yes - Suicide/Smoking/Psychosocial Hx Smoking Status: No Smoking History: Never smoked Have you smoked in the past 12 months: No Number of Cigarettes Smoked Daily: 0 If you are a former smoker, when did you quit?: 40 YEARS AGO Hx Alcohol Use: No Drug/Substance Use Hx: No Substance Use Type: None Hx Substance Use Treatment: No <Renetta Dietz - Last Filed: 02/08/17 15:40> - Past Medical History Allergies/Adverse Reactions: Allergies Allergy/AdvReac Type Severity Reaction Status Date / Time Penicillins Allergy Mild Rash Verified 02/08/17 11:57 lactose Allergy Unknown Verified 02/08/17 11:57 Home Medications: Ambulatory Orders Acetaminophen 325 mg PO PRN PRN 01/30/17 Aspirin [Aspirin EC] 81 mg PO DAILY 01/30/17 Brimonidine Tartrate [Alphagan 0.15% -] 1 drop OD TID 01/30/17 Calcium Carb/Magnesium Hydrox [Rolaids Chewable Tablet] 2 each PO Q6H PRN Calcium Citrate/Vitamin D2 [Calcium with Vit D Tablet] 1 each PO BID 01/30/17 Cholecalciferol (Vitamin D3) [Vitamin D3] 50,000 unit PO MONTHLY 01/30/17 Dorzolamide HCl [Trusopt 2% -] 1 drop OD DAILY 01/30/17 Ferrous Sulfate 325 mg PO BID 01/30/17 Folic Acid 1 mg PO DAILY 01/30/17 Latanoprost 0.005% Eye Drops [Xalatan 0.005% Eye Drops -] 1 drop HS 01/30/17 Levothyroxine [Synthroid -] 25 mcg PO DAILY 01/30/17 Metoprolol Succinate [Toprol XL -] 25 mg PO DAILY 01/30/17 Mineral Oil/Hydrophil Petrolat [Dermaphor Ointment] 118 gm TP DAILY 01/30/17 Nut.tx.impaired Digest Fxn [Ensure Clear] 200 ml PO DAILY 01/30/17 Pravastatin Sodium 10 mg PO HS 01/30/17 Simethicone 125 mg PO Q6H PRN 01/30/17 Tamsulosin HCl 0.4 mg PO HS 01/30/17 Furosemide [Lasix -] 80 mg PO DAILY tablet 02/06/17 Memantine HCl [Namenda] 1 each PO DAILY 02/08/17 Mirtazapine 7.5 mg PO DAILY 02/08/17 Review of Systems - Review of Systems Able to Perform ROS?: Yes Comments:: 02/08/17 11:57 GENERAL/CONSTITUTIONAL: No fever or chills. No weakness. HEAD, EYES, EARS, NOSE AND THROAT: No change in vision. No ear pain or discharge. No sore throat. CARDIOVASCULAR: No chest pain or shortness of breath. RESPIRATORY: No cough, wheezing, or hemoptysis. GASTROINTESTINAL: (+) lower abdominal pain and nausea, No vomiting, diarrhea or constipation. GENITOURINARY: No dysuria, frequency, or change in urination. MUSCULOSKELETAL: No joint or muscle swelling or pain. No neck or back pain. SKIN: No rash NEUROLOGIC: No headache, vertigo, loss of consciousness, or change in strength/ sensation. ENDOCRINE: No increased thirst. No abnormal weight change. HEMATOLOGIC/LYMPHATIC: No anemia, easy bleeding, or history of blood clots. ALLERGIC/IMMUNOLOGIC: No hives or skin allergy. <Dianne Robison - Last Filed: 02/08/17 15:07> *Physical Exam - Vital Signs Last Vital Signs Temp Pulse Resp BP Pulse Ox 97.8 F 70 20 129/81 98 02/08/17 11:40 02/08/17 11:40 02/08/17 11:40 02/08/17 11:40 02/08/17 11:40 - Physical Exam Comments: 02/08/17 11:58 GENERAL: Awake, alert, and fully oriented, in no acute distress HEAD: No signs of trauma EYES: PERRLA, EOMI, sclera anicteric, conjunctiva clear ENT: Auricles normal inspection, hearing grossly normal, nares patent, oropharynx clear without exudates. Moist mucosa NECK: Normal ROM, supple, no lymphadenopathy, JVD, or masses LUNGS: Breath sounds equal, clear to auscultation bilaterally. No wheezes, and no crackles HEART: Regular rate and rhythm, normal S1 and S2, no murmurs, rubs or gallops ABDOMEN: Soft, nontender, normoactive bowel sounds. No guarding, no rebound. No masses EXTREMITIES: Normal range of motion, no edema. No clubbing or cyanosis. No cords , erythema, or tenderness NEUROLOGICAL: Cranial nerves II through XII grossly intact. Normal speech, normal gait SKIN: Warm, Dry, normal turgor, no rashes or lesions noted. <Dianne Robison - Last Filed: 02/08/17 15:07> ED Treatment Course - LABORATORY CBC & Chemistry Diagram: 02/08/17 11:50 02/08/17 12:30 <Dianne Robison - Last Filed: 02/08/17 15:07> - LABORATORY CBC & Chemistry Diagram: 02/08/17 11:50 02/08/17 12:30 <Renetta Dietz - Last Filed: 02/08/17 15:40> Medical Decision Making - Medical Decision Making 02/08/17 14:05 Dr. Catalan was called at the office and I was informed Dr. Newton is covering Dr. Catalan and is in the hospital building at this time. 02/08/17 14:06 Dr. Jennifer Newton was paged overhead requesting a call back. 02/08/17 14:20 Dr. Jennifer Newton was paged overhead a second time requesting a call back. 02/08/17 14:37 Dr. Jennifer Newton was paged overhead a third time requesting a call back. 02/08/17 14:[address] Jennifer Newton was called requesting a text page be sent by the office receptionisr requesting a callback to [phone] for doctor to doctor consult. <Dianne Robison - Last Filed: 02/08/17 15:07> - Medical Decision Making 02/08/17 15:39 Pt has been pain-free in the ED. D/w Dr. Newton, covering Dr. Catalan. Recommended that he continue lasix 80 mg daily as recommended on prior admission. She will ensure f/u with Dr. Catalan for him. <Renetta Dietz - Last Filed: 02/08/17 15:40> *DC/Admit/Observation/Transfer - Attestations Scribe Attestion: 02/08/17 11:57 Documentation prepared by Dianne Robison, acting as medical laboratory technicians for Renetta Dietz MD, <Dianne Robison - Last Filed: 02/08/17 15:07> - Discharge Dispostion Admit: No <Renetta Dietz - Last Filed: 02/08/17 15:40> Diagnosis at time of Disposition: Chest pain Qualifiers: Chest pain type: unspecified Qualified Code(s): R07.9 - Chest pain, unspecified - Discharge Dispostion Disposition: [facility] Condition at time of disposition: Stable - Referrals Referrals: Carole Mclean [Primary Care Provider] - - Patient Instructions Printed Discharge Instructions: DI for Chest Pain Additional Instructions: LASIX 80 MG DAILY. FOLLOW UP WITH DR. CATALAN IN THE OFFICE, WILL BE ARRANGED.
[2017-02-08 11:47] VITALS: TEMP 97.8; BMI 22.4
[2017-02-08 12:05] LABS: MCH 28.8 pg (25.7-33.7); MCHC 32.3 g/dl (32.0-35.9); MEAN CELL VOLUME 89.1 fl (80-96); MEAN PLT VOLUME 9.3 fl (7.5-11.1); PLATELET COUNT 193 K/MM3 (134-434); RDW 16.9 % (11.9-15.9)
[2017-02-08 12:35] LABS: ALBUMIN 3.9 g/dl (3.4-5.0); ALK PHOS 142 U/L (45-117); ANION GAP 6 (8-16); BILIRUBIN,TOTAL 2.7 mg/dL (0.2-1.0); CALCIUM 9.2 mg/dL (8.5-10.1); CO2 32 mmol/L (21-32); CPK 42 IU/L (39-308); GLUCOSE,RANDOM 98 mg/dL (74-106); SGOT/AST 83 U/L (15-37); SGPT/ALT 59 U/L (12-78); TOT PROT 7.9 g/dl (6.4-8.2)
[2017-02-08 12:37] LABS: TROPONIN I < 0.02 ng/ml (0.00-0.05)
[2017-02-08 13:12] VITALS: BP 133/70
[2017-02-08 13:29] LABS: URINE APPEARANCE CLEAR; URINE BILIRUBIN NEGATIVE (NEGATIVE); URINE BLOOD NEGATIVE (NEGATIVE); URINE COLOR LT. YELLOW; URINE GLUCOSE (UA) NEGATIVE (NEGATIVE); URINE KETONE NEGATIVE (NEGATIVE); URINE NITRITE NEGATIVE (NEGATIVE); URINE PROTEIN NEGATIVE (NEGATIVE); URINE UROBILINOGEN 0.2 mg/dL (0.2-1.0)
[2017-02-08 14:33] LABS: BASOPHIL (MANUAL) 5 % (0-2.0); MICROCYTOSIS FEW; OVALOCYTE 4+; PLATELET ESTIMATE ADEQUATE (NORMAL); TEAR DROP CELLS 1+; TOTAL CELLS COUNTED 100
[2017-02-08 17:25] LABS: URINE LEUK ESTERASE Negative (NEGATIVE)
[2017-02-08 18:17] VITALS: PULSE 97
--- NOTE | 2017-02-09 07:08 | EKG ---
Test Reason : Blood Pressure : / mmHG Vent. Rate : 070 BPM Atrial Rate : 077 BPM P-R Int : 000 ms QRS Dur : 190 ms QT Int : 482 ms P-R-T Axes : 000 -79 080 degrees QTc Int : 520 ms Ventricular-paced rhythm ABNORMAL ECG WHEN COMPARED WITH ECG OF 02-FEB-2017 09:26, NO SIGNIFICANT CHANGE WAS FOUND Confirmed by UBALDO GARCIA MD ([id number]) on 02/09/2017 7:07:55 AM Referred By: Confirmed By:UBALDO GARCIA MD
== END 2017-02-08 18:22 ==
LOC: JER 11:21
DX: R07.89 Other chest pain (principal); I25.10 Atherosclerotic heart disease of native coronary artery without angina pectoris; I11.0 Hypertensive heart disease with heart failure; Z95.5 Presence of coronary angioplasty implant and graft; Z95.810 Presence of automatic (implantable) cardiac defibrillator; E03.9 Hypothyroidism, unspecified; F03.90 Unspecified dementia, unspecified severity, without behavioral disturbance, psychotic disturbance, mood disturbance, and anxiety; D64.9 Anemia, unspecified
CPT/HCPCS: 36415; 71010-TC; 80053; 81003; 82550; 84484; 85025; 87086; 87186; 93005; 93010; 99283-25

== ENCOUNTER 2017-04-24 19:47 | Inpatient (IN) | payer OTHER, BC ==
--- NOTE | 2017-04-24 20:21 | PDOC ---
History of Present Illness - General History Source: Patient Exam Limitations: Dementia - History of Present Illness Initial Comments: 04/24/17 20:44 The patient is a 87 year old male with a significant PMH of HTN, HLD, CAD s/p stents, atrial fibrillations, long QT s/p AICD, hypothyroidism, anemia, liver disease and dementia who presents to the emergency department from [facility]term after sustaining a fall earlier today. The patient states he fell on the ground and landed hitting his left shoulder and left side of his face. No other details of the fall were provided at this time secondary to his dementia. The patient has no other complaints today. The patient denies head trauma, LOC, chest pain, shortness of breath, headache and dizziness. Denies fever, chills, nausea, vomit, diarrhea and constipation. Denies dysuria, frequency, urgency and hematuria. Allergies: NKA Past surgical history: stents and pacemaker Social history: No reported alcohol, cigarette, or drug use. <Nati Brewer - Last Filed: 04/24/17 20:44> <Yoselyn Scott - Last Filed: 04/24/17 23:59> - General Chief Complaint: Injury Stated Complaint: FALL Time Seen by Provider: 04/24/17 20:07 Past History <Nati Brewer - Last Filed: 04/24/17 20:44> - Past Medical History Anemia: Yes Asthma: No Cancer: No Cardiac Disorders: Yes (PACEMAKER, Afib,CAD) COPD: No CHF: (DIASTOLIC HEART FAILURE) Dementia: Yes Diabetes: No GI Disorders: No Disorders: Yes (BPH) HTN: Yes Hypercholesterolemia: Yes Liver Disease: Yes Seizures: No Thyroid Disease: Yes (hypothyroid) - Surgical History Abdominal Surgery: Yes Appendectomy: Yes Cardiac Surgery: Yes (PACEMAKER) - Immunization History Immunization Up to Date: Yes - Suicide/Smoking/Psychosocial Hx Smoking Status: No Smoking History: Never smoked Have you smoked in the past 12 months: No Number of Cigarettes Smoked Daily: 0 If you are a former smoker, when did you quit?: 40 YEARS AGO Hx Alcohol Use: No Drug/Substance Use Hx: No Substance Use Type: None Hx Substance Use Treatment: No <Yoselyn Scott - Last Filed: 04/24/17 23:59> - Past Medical History Allergies/Adverse Reactions: Allergies Allergy/AdvReac Type Severity Reaction Status Date / Time Penicillins Allergy Mild Rash Verified 04/24/17 20:20 lactose Allergy Unknown Verified 04/24/17 20:20 Home Medications: Ambulatory Orders Acetaminophen 325 mg PO PRN PRN 01/30/17 Brimonidine Tartrate [Alphagan 0.15% -] 1 drop OD TID 01/30/17 Calcium Citrate/Vitamin D2 [Calcium with Vit D Tablet] 1 each PO BID 01/30/17 Dorzolamide HCl [Trusopt 2% -] 1 drop OD DAILY 01/30/17 Ferrous Sulfate 325 mg PO BID 01/30/17 Folic Acid 1 mg PO DAILY 01/30/17 Latanoprost 0.005% Eye Drops [Xalatan 0.005% Eye Drops -] 1 drop HS 01/30/17 Levothyroxine [Synthroid -] 25 mcg PO DAILY 01/30/17 Metoprolol Succinate [Toprol XL -] 25 mg PO DAILY 01/30/17 Nut.tx.impaired Digest Fxn [Ensure Clear] 200 ml PO DAILY 01/30/17 Pravastatin Sodium 10 mg PO HS 01/30/17 Simethicone 125 mg PO Q6H PRN 01/30/17 Tamsulosin HCl 0.4 mg PO HS 01/30/17 Furosemide [Lasix -] 80 mg PO DAILY tablet 02/06/17 Memantine HCl [Namenda] 1 each PO DAILY 02/08/17 Mirtazapine 7.5 mg PO DAILY 02/08/17 Azithromycin [Zithromax -] 1 gm PO DAILY 04/24/17 Calcium Carb/Magnesium Hydrox [Rolaids Chewable Tablet] 1 each PO DAILY Dextromethorphan Polistirex [Delsym] 30 mg PO DAILY 04/24/17 Nitroglycerin 0.4 mg SL [id number] PRN 04/24/17 Review of Systems - Review of Systems Able to Perform ROS?: Yes Comments:: 04/24/17 20:45 GENERAL/CONSTITUTIONAL: No fever or chills. No weakness. HEAD, EYES, EARS, NOSE AND THROAT: No change in vision. No ear pain or discharge. No sore throat. CARDIOVASCULAR: No chest pain or shortness of breath. RESPIRATORY: No cough, wheezing, or hemoptysis. GASTROINTESTINAL: No nausea, vomiting, diarrhea or constipation. GENITOURINARY: No dysuria, frequency, or change in urination. MUSCULOSKELETAL: (+) Left shoulder pain. No neck or back pain. SKIN: No rash NEUROLOGIC: No headache, vertigo, loss of consciousness, or change in strength/ sensation. ENDOCRINE: No increased thirst. No abnormal weight change. HEMATOLOGIC/LYMPHATIC: No anemia, easy bleeding, or history of blood clots. ALLERGIC/IMMUNOLOGIC: No hives or skin allergy. <Nati Brewer - Last Filed: 04/24/17 20:44> *Physical Exam - Vital Signs Last Vital Signs Temp Pulse Resp BP Pulse Ox 98.2 F 79 18 113/74 100 04/24/17 20:08 04/24/17 20:08 04/24/17 20:08 04/24/17 20:08 04/24/17 20:08 - Physical Exam Comments: 04/24/17 20:46 GENERAL: Awake, alert, and fully oriented, in no acute distress HEAD: No signs of trauma EYES: PERRLA, EOMI, sclera anicteric, conjunctiva clear ENT: Auricles normal inspection, hearing grossly normal, nares patent, oropharynx clear without exudates. Moist mucosa NECK: Normal ROM, supple, no lymphadenopathy, JVD, or masses LUNGS: Breath sounds equal, clear to auscultation bilaterally. No wheezes, and no crackles HEART: Regular rate and rhythm, normal S1 and S2, no murmurs, rubs or gallops ABDOMEN: Soft, nontender, normoactive bowel sounds. No guarding, no rebound. No masses EXTREMITIES: (+) Left shoulder tenderness. (+) Clavicle deformity; prominence of clavicle laterally. Normal range of motion, no edema. No clubbing or cyanosis. No cords or erythema. NEUROLOGICAL: Cranial nerves II through XII grossly intact. Normal speech, normal gait SKIN: (+) Small bruise on left cheek. Warm, Dry, normal turgor, no rashes or lesions noted. <Nati Brewer - Last Filed: 04/24/17 20:44> - Vital Signs Last Vital Signs Temp Pulse Resp BP Pulse Ox 98.2 F 79 18 113/74 100 04/24/17 20:08 04/24/17 20:08 04/24/17 20:08 04/24/17 20:08 04/24/17 20:08 <Yoselyn Scott - Last Filed: 04/24/17 23:59> ED Treatment Course - LABORATORY CBC & Chemistry Diagram: 04/24/17 20:56 04/24/17 20:56 <Yoselyn Scott - Last Filed: 04/24/17 23:59> Medical Decision Making - Medical Decision Making 04/24/17 22:49 Pt had a syncopal episode and now has a deformed left clavicle. Pt's head CT and CXR appear normal; I am awaiting official readings. Labs are normal (potassium repleted); EKG is paced rhythm. Pt will be admitted to the hospitalist/ telemetry unit. 04/24/17 22:51 04/24/17 23:16 Patient Name: OMEGA KELLER THIS IS A PRELIMINARY REPORT FROM [facility] DATE OF SERVICE: 2017-04-24 21:45:24 IMAGES: 147 EXAM: Noncontrast head CT HISTORY: Syncopal episode. 87-year-old male. COMPARISON: None. FINDINGS: CSF spaces are prominent but symmetric. Periventricular white matter is of diffuse decreased attenuation. No intracranial mass or mass affect. No evidence of an acute intracranial bleed. Basal ganglia, brain stem and cerebellum are normal in appearance. Physiologic and intracranial arterial calcifications are noted. A dominant left vertebral artery is noted. Air-fluid levels in the smaller sphenoid and ethmoid air cells. Bone windows show the mastoid and the other paranasal sinuses to be well aerated. The orbits are unremarkable. No bone lesions identified. IMPRESSION: Bilateral cerebral atrophy. Diffuse white matter disease. Most likely associated with chronic microvascular disease. Intracranial arterial calcifications are noted. No evidence of an acute intracranial bleed. THIS DOCUMENT HAS BEEN ELECTRONICALLY SIGNED 04/24/17 23:17 Patient Name: OMEGA KELLER THIS IS A PRELIMINARY REPORT FROM [facility] DATE OF SERVICE: 2017-04-24 22:22:43 IMAGES: 3 EXAM: XR LEFT CLAVICLE HISTORY: Status post fall COMPARISON: None. FINDINGS: There is posttraumatic deformity of the left clavicle but this may be due to old fracture. No definite acute fracture identified. IMPRESSION: No definite acute fracture. Patient Name: OMEGA KELLER THIS IS A PRELIMINARY REPORT FROM [facility] DATE OF SERVICE: 2017-04-24 22:17:03 IMAGES: 3 EXAM: XR CHEST HISTORY: Status post fall COMPARISON: None. FINDINGS: Heart size normal. Aorta is tortuous. Bipolar pacemaker leads are noted. Lungs are clear. No pneumothorax or pleural effusion. There is deformity of the left clavicle and right scapula which may be due to old trauma. No definite acute fracture. IMPRESSION: No acute intrathoracic pathology. 04/24/17 23:58 We paged Darleen 2x -no response. Pt will automatically go to hospitalist. Regardless, Dr. Morejon admits patients to the hospitalist service. <Yoselyn Scott - Last Filed: 04/24/17 23:59> *DC/Admit/Observation/Transfer - Attestations Scribe Attestion: 04/24/17 20:49 Documentation prepared by Nati Brewer, acting as medical van driver for Yoselyn Scott MD. <Nati Brewer - Last Filed: 04/24/17 20:44> - Discharge Dispostion Admit: Yes <Yoselyn Scott - Last Filed: 04/24/17 23:59> Diagnosis at time of Disposition: Clavicle fracture, Syncope and collapse - Discharge Dispostion Condition at time of disposition: Guarded
[2017-04-24] MEDS ORDERED: morphine CARPU-JECT 2 MG/1 ML DISP.SYRIN IVPUSH ONE (20:47)
[2017-04-24] MEDS ORDERED: morphine CARPU-JECT 10 MG/1 ML DISP.SYRIN ONE (21:04)
[2017-04-24 21:08] LABS: BASO % 2.3 % (0-2.0); EOS % 3.3 % (0-4.5); HEMATOCRIT 32.5 % (35.4-49); HEMOGLOBIN 10.7 GM/dL (11.7-16.9); LYMPH % 11.2 % (8-40); MCH 29.2 pg (25.7-33.7); MCHC 32.9 g/dl (32.0-35.9); MEAN CELL VOLUME 88.7 fl (80-96); MEAN PLT VOLUME 9.4 fl (7.5-11.1); MONO % 16.3 % (3.8-10.2); NEUT % 66.9 % (42.8-82.8); PLATELET COUNT 168 K/MM3 (134-434); RBC 3.66 M/mm3 (4.00-5.60); RDW 18.4 % (11.9-15.9); WHITE BLOOD COUNT 9.2 K/mm3 (4.0-10.0)
[2017-04-24 21:21] LABS: INR 1.58 (0.82-1.09); PROTHROMBIN TIME (PATIENT) 17.8 SEC (9.98-11.88)
[2017-04-24 21:30] LABS: ALBUMIN 3.4 g/dl (3.4-5.0); ANION GAP 9 (8-16); BLOOD UREA NITROGEN 16 mg/dL (7-18); CALCIUM 8.4 mg/dL (8.5-10.1); CHLORIDE 100 mmol/L (98-107); CO2 28 mmol/L (21-32); GLUCOSE,RANDOM 107 mg/dL (74-106); POTASSIUM 3.2 mmol/L (3.5-5.1); SGOT/AST 23 U/L (15-37); SGPT/ALT 18 U/L (12-78); SODIUM 137 mmol/L (136-145); TOT PROT 7.2 g/dl (6.4-8.2)
[2017-04-24 21:33] LABS: ALK PHOS 79 U/L (45-117)
[2017-04-24] MEDS ORDERED: MAGNESIUM SULF 50% (8.12 MEQ/2 ML-1 GM VIAL) IVPB ONE (21:47)
[2017-04-24] MEDS ORDERED: POTASSIUM CHLORIDE TABS 20 MEQ TABLET.ER (FP) PO ONE ×2 (21:47→22:16)
[2017-04-24] MEDS ORDERED: MAGNESIUM SULF 50% (8.12 MEQ/2 ML-1 GM VIAL) ONE (22:16)
[2017-04-25] MEDS ORDERED: morphine SULFATE 4 MG/ML VIAL IVPUSH PRN (01:39)
--- NOTE | 2017-04-25 01:49 | HP ---
CHIEF COMPLAINT: s/p Fall PCP: Cindy Morejon I HISTORY OF PRESENT ILLNESS: 87-year-old male with a significant PMH of HTN, HLD, CAD s/p stents, atrial fibrillation, long QT s/p AICD, hypothyroidism, hemolytic anemia (followed at [facility] for Hem), elevated bili due to [place]', pulmonary HTN, ( uses O2 at night ) and dementia presents s/p syncope and fall at his half-way ([facility]). Patient states that he was reaching for something in a kitchen cabinet when he became light headed and fell to the floor. He fell on his left shoulder and left side of face. He states that staff at the facility came to assist him. He is unsure of how he came to arrive at hospital. He endorses some dysuria for the past few days. Also he mentions that this is the second fall in the past two weeks. Denies CP,PYLE,SOB, palpitations, abdominal pain, N/V. ER course was notable for: (1)EKG shows paced rythym (2)CT head shows no acute bleed (3)CXR shows no acute pathology (4)Clavicular XRAY shows clavicular fracture that may be old. Recent Travel:denies PAST MEDICAL HISTORY:HTN, HLD, CAD , atrial fibrillation, long QT , hypothyroidism, hemolytic anemia , elevated bili due to [place]', pulmonary HTN , ( uses O2 at night ) and dementia PAST SURGICAL HISTORY:AICD and stents. Social History: Smoking:remote smoking history > 40yrs ago Alcohol:denies Drugs: denies Family History: Allergies Penicillins Allergy (Mild, Verified 04/24/17 20:20) Rash lactose Allergy (Unknown, Verified 04/24/17 20:20) HOME MEDICATIONS: Home Medications Medication Instructions Recorded Acetaminophen 325 mg PO PRN PRN 01/30/17 Brimonidine Tartrate [Alphagan 1 drop OD TID 01/30/17 0.15% -] Calcium Citrate/Vitamin D2 1 each PO BID 01/30/17 [Calcium with Vit D Tablet] Dorzolamide HCl [Trusopt 2% -] 1 drop OD DAILY 01/30/17 Ferrous Sulfate 325 mg PO BID 01/30/17 Folic Acid 1 mg PO DAILY 01/30/17 Latanoprost 0.005% Eye Drops 1 drop HS 01/30/17 [Xalatan 0.005% Eye Drops -] Levothyroxine [Synthroid -] 25 mcg PO DAILY 01/30/17 Metoprolol Succinate [Toprol XL -] 25 mg PO DAILY 01/30/17 Nut.tx.impaired Digest Fxn [Ensure 200 ml PO DAILY 01/30/17 Clear] Pravastatin Sodium 10 mg PO HS 01/30/17 Simethicone 125 mg PO Q6H PRN 01/30/17 Tamsulosin HCl 0.4 mg PO HS 01/30/17 Furosemide [Lasix -] 80 mg PO DAILY tablet 02/06/17 Memantine HCl [Namenda] 1 each PO DAILY 02/08/17 Mirtazapine 7.5 mg PO DAILY 02/08/17 Azithromycin [Zithromax -] 1 gm PO DAILY 04/24/17 Calcium Carb/Magnesium Hydrox 1 each PO DAILY 04/24/17 [Rolaids Chewable Tablet] Dextromethorphan Polistirex 30 mg PO DAILY 04/24/17 [Delsym] Nitroglycerin 0.4 mg SL [id number] PRN 04/24/17 REVIEW OF SYSTEMS CONSTITUTIONAL: Absent: fever, chills, diaphoresis, generalized weakness, malaise, loss of appetite, weight change HEENT: Absent: rhinorrhea, nasal congestion, throat pain, throat swelling, difficulty swallowing, mouth swelling, ear pain, eye pain, visual changes CARDIOVASCULAR: syncope Absent: chest pain, , palpitations, irregular heart rate, lightheadedness, peripheral edema RESPIRATORY: Absent: cough, shortness of breath, dyspnea with exertion, orthopnea, wheezing, stridor, hemoptysis GASTROINTESTINAL: Absent: abdominal pain, abdominal distension, nausea, vomiting, diarrhea, constipation, melena, hematochezia GENITOURINARY: Absent: dysuria, frequency, urgency, hesitancy, hematuria, flank pain, genital pain MUSCULOSKELETAL: joint swelling, back pain, Absent: myalgia, arthralgia, neck pain SKIN: Absent: rash, itching, pallor HEMATOLOGIC/IMMUNOLOGIC: Absent: easy bleeding, easy bruising, lymphadenopathy, frequent infections ENDOCRINE: Absent: unexplained weight gain, unexplained weight loss, heat intolerance, cold intolerance NEUROLOGIC: Absent: headache, focal weakness or paresthesias, dizziness, unsteady gait, seizure, mental status changes, bladder or bowel incontinence PSYCHIATRIC: Absent: anxiety, depression, suicidal or homicidal ideation, hallucinations. PHYSICAL EXAMINATION Vital Signs - 24 hr 04/24/17 04/24/17 20:08 23:26 Temperature 98.2 F 97.2 F L Pulse Rate 79 Pulse Rate [ 76 Left Radial] Respiratory 18 19 Rate Blood Pressure 113/74 Blood Pressure 132/76 [Right Arm] O2 Sat by Pulse 100 98 Oximetry (%) GENERAL: Awake, alert, ,NAD HEAD:NC/AT EYES: PERRLA, right eye ptosis. EARS, NOSE, THROAT: Dry mucous membranes. NECK: Supple, (+) JVD LUNGS: CTAB, No wheezing, rhonchi, HEART:RRR, NL S1S2 , 3/6 [place] RSB and [place]. ABDOMEN: Soft, nontender, not distended, normoactive bowel sounds, no guarding, no rebound, no masses. MUSCULOSKELETAL: no CVA tenderness. UPPER EXTREMITIES: Limited ROM of left upper arm secondary to discomfort. NV intact bilaterally. LOWER EXTREMITIES: 2+ pulses, warm, well-perfused. No calf tenderness. No peripheral edema. NEUROLOGICAL: Normal speech. right sided facial asymmetry. LUE 3/5 strength. RUE, bilateral LE 5/5 strength. Laboratory Results - last 24 hr 04/24/17 04/24/17 04/24/17 20:56 20:56 20:56 WBC 9.2 RBC 3.66 L Hgb 10.7 L Hct 32.5 L MCV 88.7 MCH 29.2 MCHC 32.9 RDW 18.4 H Plt Count 168 MPV 9.4 Neutrophils % 66.9 Lymphocytes % 11.2 Monocytes % 16.3 H Eosinophils % 3.3 Basophils % 2.3 H PT with INR 17.80 H INR 1.58 H Sodium 137 Potassium 3.2 L D Chloride 100 Carbon Dioxide 28 Anion Gap 9 BUN 16 D Creatinine 1.0 Creat Clearance w eGFR > 60 Random Glucose 107 H Calcium 8.4 L Total Bilirubin 4.0 H D AST 23 D ALT 18 D Alkaline Phosphatase 79 D Creatine Kinase 120 Troponin I < 0.02 Total Protein 7.2 Albumin 3.4 ASSESSMENT/PLAN: 87-year-old male with a significant PMH of HTN, HLD, CAD s/p stents, atrial fibrillation, long QT s/p AICD, hypothyroidism, hemolytic anemia (followed at [facility] for Hem), elevated bili due to [place]', pulmonary HTN, ( uses O2 at night ) and dementia placed on telemetry observation for syncope and clavicular fracture. Problem List - Problem (1) Syncope and collapse Assessment/Plan: * Observation to telemetry. * Echo pending * Orthostatic VS Q4H * Cardiology consult. * EKG in Am * Repeat labs in AM * UA pending r/o UTI * pacemaker check (2) Clavicle fracture Assessment/Plan: it does not seem to be an acute fracture based off XRAY . * Ortho Dr. Arteaga consulted by ED * Pain control with morphine 1gm Q4H * arm place in sling. * Neurovascularly intact. (3) BPH (benign prostatic hypertrophy) Assessment/Plan: continue tamsulozin (4) CAD (coronary artery disease) Assessment/Plan: * Metoprolol Succinate (Toprol Xl -) 25 mg PO DAILY * Pravastatin Sodium [Pravastatin Sodium]) 10 mg PO HS (5) (HFpEF) heart failure with preserved ejection fraction Assessment/Plan: Last Echo 01/2017: low nl lvef, mild dec rv fcn, mod natalie, mod-sev mr, mod phtn , mild tr, mod , mod ar, mod pr, ao root dil * Furosemide (Lasix -) 80 mg PO DAILY * Metoprolol Succinate (Toprol Xl -) 25 mg PO DAILY (6) History of prolonged Q-T interval on ECG Assessment/Plan: avoid QT prolonging meds. Visit type - Emergency Visit Emergency Visit: Yes ED Registration Date: 04/24/17 Care time: The patient presented to the Emergency Department on the above date and was hospitalized for further evaluation of their emergent condition. - New Patient This patient is new to me today: Yes Date on this admission: 04/25/17 - Critical Care Critical Care patient: No
[2017-04-25] MEDS ORDERED: PATIENT'S OWN MEDICATION (NON-FORMULARY) (Acetaminophen [Acetaminophen] 325 MG) PO PRN (02:42)
[2017-04-25] MEDS ORDERED: SIMETHICONE 80 MG TAB.CHEW (FP) PO PRN (02:48)
[2017-04-25 03:38] VITALS: BMI 22.1
--- NOTE | 2017-04-25 06:01 | PN ---
Teaching Attending Note Name of Resident: Surinder Marc ATTENDING PHYSICIAN STATEMENT I saw and evaluated the patient. Chart, data, imaging reviewed. I reviewed the resident's note and discussed the case with the resident. I agree with the resident's findings and plan as documented. SUBJECTIVE: 87-year-old man with PMH of HTN, HLD, CAD s/p stents, atrial fibrillation, long QT s/p AICD, hypothyroidism, hemolytic anemia (followed at [facility] for Heme), elevated bili due to [place]', pulmonary HTN, ( uses O2 at night ) and dementia send from care home ([facility]) after he experienced a fall and hit his left shoulder. Pt denies loss of consciousness. He currently denies any significant pain. He denied any palpitations, seizures, or shortness of breath. OBJECTIVE: Last Vital Signs Temp Pulse Resp BP Pulse Ox 97.2 F L 77 18 134/74 95 04/24/17 23:26 04/25/17 03:38 04/25/17 01:40 04/25/17 03:38 04/25/17 01:40 General - NAD, laying comfortably in bed, pleasant to talk to HEENT -atraumatic, normocephalic, dry oral mucous membranes CV -s1+s2+ irregularly irreregular rhythm, systolic murmur+ Chest CTA b/l, left clavicle deformity Abdomen - soft, nt, no masses Ext - no pedal edema noted EKG- irregular rate, ventricular- paced CXR- no pleural effusions or pulm edema , pacemaker visible CT of brain- cerebral atrophy, no acute bleeds or fractures visible Abnormal Lab Results 04/24/17 04/24/17 04/24/17 20:56 20:56 20:56 RBC 3.66 L Hgb 10.7 L Hct 32.5 L RDW 18.4 H Monocytes % 16.3 H Basophils % 2.3 H PT with INR 17.80 H INR 1.58 H Potassium 3.2 L D Random Glucose 107 H Calcium 8.4 L Total Bilirubin 4.0 H D ASSESSMENT AND PLAN: #S/p fall - most likely mechanical. Questionable syncope. Pt is demented and not reliable historian. Should r/o cardiac causes such as occult arrythmias, aortic stenosis, pacemaker malfunction. Patient is not a good candidate for anticoagulation due his tendency to fall. Head CT negative for any acute bleed. -admit to obs/telemetry -bed rest -fall precuations -transthoracic echo to evaluate aortic stenosis -check for orthostatic hypotension -pacemaker interrogation #left clavicle xray- old fracture -orthopedics evaluation #DVT ppx -heparin sc -restart home medications for chronic medical problems
[2017-04-25] MEDS: LEVOTHYROXINE NA 25 MCG TABLET (FP) PO SCH (06:30)
[2017-04-25 07:48] LABS: BASO % 5.8 % (0-2.0); EOS % 4.3 % (0-4.5); HEMATOCRIT 32.4 % (35.4-49); HEMOGLOBIN 10.6 GM/dL (11.7-16.9); LYMPH % 8.7 % (8-40); MCHC 32.7 g/dl (32.0-35.9); MEAN CELL VOLUME 88.8 fl (80-96); MEAN PLT VOLUME 9.5 fl (7.5-11.1); MONO % 9.7 % (3.8-10.2); NEUT % 71.5 % (42.8-82.8); PLATELET COUNT 166 K/MM3 (134-434); RBC 3.65 M/mm3 (4.00-5.60); RDW 17.9 % (11.9-15.9); WHITE BLOOD COUNT 10.3 K/mm3 (4.0-10.0)
[2017-04-25 08:25] LABS: ALBUMIN 3.4 g/dl (3.4-5.0); ANION GAP 10 (8-16); BLOOD UREA NITROGEN 16 mg/dL (7-18); CALCIUM 8.1 mg/dL (8.5-10.1); CHLORIDE 102 mmol/L (98-107); CO2 26 mmol/L (21-32); CREATININE 0.8 mg/dL (0.7-1.3); GLUCOSE,RANDOM 108 mg/dL (74-106); MAGNESIUM 2.3 mg/dL (1.8-2.4); PHOSPHOROUS 2.4 mg/dL (2.5-4.9); POTASSIUM 3.5 mmol/L (3.5-5.1); SGOT/AST 21 U/L (15-37); SGPT/ALT 15 U/L (12-78); SODIUM 138 mmol/L (136-145)
[2017-04-25 08:29] LABS: ALK PHOS 78 U/L (45-117); BILIRUBIN,TOTAL 4.2 mg/dL (0.2-1.0)
[2017-04-25] MEDS ORDERED: PT OWN MED DRAWER 7, Y5N ONE ×3 (09:37→23:26)
[2017-04-25] MEDS: FERROUS SO4 325 MG TABLET (FP) PO SCH ×2 (09:41→22:59)
[2017-04-25] MEDS: METOPROLOL SUCCINATE 25 MG TAB.SR.24H (FP) PO SCH (09:42)
[2017-04-25] MEDS: FOLIC ACID 1 MG TABLET (FP) PO SCH (09:42)
[2017-04-25] MEDS ORDERED: NUT TX IMPAIRED DIGEST FXN PO SCH (10:00)
[2017-04-25] MEDS ORDERED: MEMANTINE HCL PO SCH (10:00)
[2017-04-25] MEDS ORDERED: DEXTROMETHORPHAN POLISTIREX 30 MG PO SCH (10:00)
[2017-04-25] MEDS ORDERED: FUROSEMIDE 40 MG TABLET (FP) PO SCH (10:00)
--- NOTE | 2017-04-25 10:29 | EKG ---
Test Reason : Blood Pressure : / mmHG Vent. Rate : 077 BPM Atrial Rate : 068 BPM P-R Int : 000 ms QRS Dur : 126 ms QT Int : 428 ms P-R-T Axes : 000 -60 139 degrees QTc Int : 484 ms ATRIAL FIBRILLATION WITH INTERMITENT VENTRICULAR PACING AND FUSION BEATS LEFT AXIS DEVIATION LEFT VENTRICULAR HYPERTROPHY WITH QRS WIDENING AND REPOLARIZATION ABNORMALITY ABNORMAL ECG WHEN COMPARED WITH ECG OF 08-FEB-2017 11:28, RHYTHM ABOVE CLINICAL CORRELATION IS RECOMMENDED Confirmed by LANDEN MARAVILLA, ARPIT ([id number]) on 04/25/2017 10:29:18 AM Referred By: Confirmed By:ARPIT SCHUSTER MD
[2017-04-25] MEDS: DORZOLAMIDE 2% HCL OPHTHALMIC SOLUTION 10 ML BOTTLE OD SCH (12:10)
[2017-04-25] MEDS: BRIMONIDINE TARTRATE 0.15% OPHTHALMIC 5 ML BOTTLE OD SCH ×2 (13:19→22:58)
--- NOTE | 2017-04-25 14:51 | EKG ---
Test Reason : Blood Pressure : / mmHG Vent. Rate : 084 BPM Atrial Rate : 063 BPM P-R Int : 000 ms QRS Dur : 124 ms QT Int : 410 ms P-R-T Axes : 000 -67 127 degrees QTc Int : 484 ms ATRIAL FIBRILLATION WITH OCCASIONAL ventricular-paced complexes LEFT AXIS DEVIATION LEFT VENTRICULAR HYPERTROPHY WITH QRS WIDENING ABNORMAL ECG WHEN COMPARED WITH ECG OF 25-APR-2017 04:16, VENT. RATE HAS INCREASED BY 9 BPM CLINICAL CORRELATION IS RECOMMENDED Confirmed by ARPIT SCHUSTER MD ([id number]) on 04/25/2017 2:50:46 PM Referred By: Frederic ADAM Confirmed By:ARPIT SCHUSTER MD
--- NOTE | 2017-04-25 16:53 | CON.CARD ---
Cardiology Consult (text) - Consultation Consultation Note: Chief Complaint: unwitnessed fall/possible presyncope/syncope. History of Present Illness: 87 yo with h/o HTN, HLD, CAD s/p MAHENDRA to LAD 2012, atrial fibrillation on AC, PMVT/torsades s/p AICD, severe , moderate mr, severe phtn on nocturnal O2, mild aortic root dilation, hypothyroidism, hemolytic anemia with elevated bilirubin (followed at [facility] for Heme), thrombocytopenia, bph and mild dementia who presents s/p unwitnessed fall/possible presyncope/syncope. Recently had been taking lasix 80 mg/day instead of 80 mg alternating with 40 mg. Recently this month noted to be orthostatic and lasix decreased to 40 mg daily and then adjusted to 80 mg twice a week and 40 mg/day on other days last week. Patient states he tripped and fell, hitting his left side. He denies prior presyncopal/dizziness sx's. But per report may have endorsed dizziness sx's on initial evaluation. History limited due to memory impairment/dementia. Per report has had 2 falls this month. Patient endorses pain to his left shoulder/chest at site of trauma. + prior healed fracture of the clavicle noted on admit x rays. Pt denies any other discomfort including angina, SOB, LE edema, orthopnea, pnd, palps, dizziness, bleeding, transient neurologic symptoms. Denies recent infectious sx's or poor po intake. denies abdominal pain, headache, fever, chills, sweats, nausea, vomiting, diarrhea, rashes, cough, visual disturbances. Supervisor Warping Department: Dr. Catalan PMHx: per hpi Past Surgical History: per hpi Social History: former smoker, lives in assisted living. fam hx: no family h/o premature cad. ros: per hpi, limited due to memory deficits. Ambulatory Orders Acetaminophen 325 mg PO PRN PRN 01/30/17 Brimonidine Tartrate [Alphagan 0.15% -] 1 drop OD TID 01/30/17 Calcium Citrate/Vitamin D2 [Calcium with Vit D Tablet] 1 each PO BID 01/30/17 Dorzolamide HCl [Trusopt 2% -] 1 drop OD DAILY 01/30/17 Ferrous Sulfate 325 mg PO BID 01/30/17 Folic Acid 1 mg PO DAILY 01/30/17 Latanoprost 0.005% Eye Drops [Xalatan 0.005% Eye Drops -] 1 drop HS 01/30/17 Levothyroxine [Synthroid -] 25 mcg PO DAILY 01/30/17 Metoprolol Succinate [Toprol XL -] 25 mg PO DAILY 01/30/17 Nut.tx.impaired Digest Fxn [Ensure Clear] 200 ml PO DAILY 01/30/17 Pravastatin Sodium 10 mg PO HS 01/30/17 Simethicone 125 mg PO Q6H PRN 01/30/17 Tamsulosin HCl 0.4 mg PO HS 01/30/17 Furosemide [Lasix -] 80 mg PO DAILY tablet 02/06/17 Memantine HCl [Namenda] 1 each PO DAILY 02/08/17 Mirtazapine 7.5 mg PO DAILY 02/08/17 Azithromycin [Zithromax -] 1 gm PO DAILY 04/24/17 Calcium Carb/Magnesium Hydrox [Rolaids Chewable Tablet] 1 each PO DAILY Dextromethorphan Polistirex [Delsym] 30 mg PO DAILY 04/24/17 Nitroglycerin 0.4 mg SL [id number] PRN 04/24/17 Per office notes, on lasix 40 mg/day, toprol 25 mg qam and 12.5 mg qpm. asa 81 mg/day Current Medications Acetaminophen (Tylenol -) 650 mg PO Q6H PRN PRN Reason: FEVER OR PAIN Atorvastatin Calcium (Lipitor -) 10 mg PO HS [facility] Brimonidine Tartrate (Alphagan 0.15% -) 1 drop OD TID [facility] Last Admin: 04/25/17 13:19 Dose: 1 drop Dorzolamide HCl (Trusopt 2%) 1 drop OD DAILY [facility] Last Admin: 04/25/17 12:10 Dose: 1 drop Ferrous Sulfate (Feosol -) 325 mg PO BID [facility] Last Admin: 04/25/17 09:41 Dose: 325 mg Folic Acid (Folic Acid -) 1 mg PO DAILY [facility] Last Admin: 04/25/17 09:42 Dose: 1 mg Furosemide (Lasix -) 80 mg PO DAILY [facility] Last Admin: 04/25/17 09:42 Dose: 80 mg Latanoprost (Xalatan 0.005% Eye Drops -) 1 drop OD HS [facility] Levothyroxine Sodium (Synthroid -) 25 mcg PO DAILY@0700 [facility] Last Admin: 04/25/17 06:30 Dose: 25 mcg Metoprolol Succinate (Toprol Xl -) 25 mg PO DAILY [facility] Last Admin: 04/25/17 09:42 Dose: 25 mg Mirtazapine (Remeron -) 7.5 mg PO [facility] Morphine Sulfate (Morphine Sulfate) 1 mg IVPUSH Q4H PRN PRN Reason: PAIN Last Admin: 04/25/17 13:18 Dose: 1 mg Non-Formulary Medication (Acetaminophen [Acetaminophen]) 325 mg PO PRN PRN PRN Reason: PAIN Non-Formulary Medication (Calcium Carb/Magnesium Hydrox [Rolaids Chewable Tablet ]) 1 each PO DAILY [facility] Non-Formulary Medication (Calcium Citrate/Vitamin D2 [Calcium With Vit D Tablet] ) 1 each PO BID [facility] Non-Formulary Medication (Dextromethorphan Polistirex [Delsym]) 30 mg PO DAILY [facility] Non-Formulary Medication (Memantine Hcl [Namenda Titration Samir]) 1 each PO DAILY [facility] Non-Formulary Medication (Simethicone [Simethicone]) 125 mg PO Q6H PRN PRN Reason: GAS PAIN Tamsulosin HCl (Flomax -) 0.4 mg PO [facility] Vital Signs - 24 hr 04/24/17 04/24/17 04/24/17 20:08 22:52 23:26 Temperature 98.2 F 97.9 F 97.2 F L Pulse Rate 79 74 Pulse Rate [ 76 Left Radial] Pulse Rate [ Left side Sitting] Pulse Rate [ Left side Standing] Pulse Rate [ Left side Supine] Respiratory 18 19 19 Rate Blood Pressure 113/74 129/78 Blood Pressure [Left side Sitting] Blood Pressure [Left side Standing] Blood Pressure [Left side Supine] Blood Pressure 132/76 [Right Arm] O2 Sat by Pulse 100 94 L 98 Oximetry (%) 04/25/17 04/25/17 04/25/17 01:40 03:38 09:40 Temperature 98 F Pulse Rate 75 Pulse Rate [ Left Radial] Pulse Rate [ 78 Left side Sitting] Pulse Rate [ 82 Left side Standing] Pulse Rate [ 77 Left side Supine] Respiratory 18 18 Rate Blood Pressure 147/96 Blood Pressure 124/76 [Left side Sitting] Blood Pressure 109/63 [Left side Standing] Blood Pressure 134/74 [Left side Supine] Blood Pressure [Right Arm] O2 Sat by Pulse 95 95 Oximetry (%) 04/25/17 13:00 Temperature 98.1 F Pulse Rate 81 Pulse Rate [ Left Radial] Pulse Rate [ Left side Sitting] Pulse Rate [ Left side Standing] Pulse Rate [ Left side Supine] Respiratory 16 Rate Blood Pressure 142/91 Blood Pressure [Left side Sitting] Blood Pressure [Left side Standing] Blood Pressure [Left side Supine] Blood Pressure [Right Arm] O2 Sat by Pulse Oximetry (%) Intake & Output 04/23/17 04/24/17 04/25/17 04/26/17 07:59 07:59 07:59 07:59 Intake Total 120 700 Balance 120 700 Weight 137 lb nad, calm jvd flat, neck supple ctab, nl effort irregularly irregular, nl s1, s2 2/6 murmur throughout precordium and at apex. ND PMI + bs soft nt nd, no hsm ext without e/c/c left arm in sling + dp/pt no carotid bruits alert and oriented no jaundice, diaphoresis. CBC, BMP 04/25/17 07:30 04/25/17 07:30 Laboratory Tests 04/24/17 04/24/17 04/25/17 20:56 20:56 07:30 INR 1.58 H Magnesium 2.3 Total Bilirubin 4.2 H AST 21 ALT 15 Alkaline Phosphatase 78 Creatine Kinase 120 Troponin I < 0.02 ekg: atrial fibrillation with intermittent v-pacing. lad. lvh. non-specific anterolateral t wave inversions, similar to priors. tele: intermittent v-pacing/intermittent rate controlled afib cxr: no congestion/infiltrates head ct: chronic small vessel ischemia. acute/chronic sinusitis. Echo 03/12: 1. The left ventricular size is normal. 2. Overall left ventricular systolic function is low-normal with a visually estimated EF between 50 - 55 %. 3. LA pressure could not be estimated. 4. The right ventricle is normal in size. 5. The right ventricular systolic function is mildly impaired. 6. Left atrium is severely dilated by volume. 7. The right atrium is mildly enlarged. 8. Electronic pacemaker leads seen in the RA and RV. Again noted is highly mobile RA lead, no vegetation seen. 9. The aortic valve was not well visualized. 10. There is mild aortic regurgitation. 11. Severe aortic stenosis is suspected. Peak/mean pressure gradient of 59 / 35 mmHg. Estimated aortic valve area by continuity equation is 0.6 cm2. The LVOT VTI of 12.5cm may be underestimated, which would lead to an underestimate of AV area. 12. The mitral valve leaflets are moderately thickened. Possible prolapse of the basal portion of anterior leaflet seen in some views (images #4 and #99). Overall MR severity appears mild to moderate, vs moderate. However systolic flow reversal appears to be present in pulmonary vein, which raises the possibility of severe MR being underappreciated on color flow assessment. 13. Moderate tricuspid regurgitation present. 14. There is at least moderate pulmonary hypertension (TR doppler signal is cut off). 15. The right ventricular systolic pressure is at least 52 mmHg (assuming RA pressure of 3). 16. The aortic root is moderately dilated (4.2 cm at sinuses of Valsalva). Laminar atherosclerotic plaque is present in root and arch. 17. Normal inferior vena cava with normal inspiratory collapse consistent with estimated right atrial pressure of 3 mmHg. LHC 12/06 no LMCA dz; 30-50% pLAD. 80-90% mLAD, calcified; 70-80% oRCA, calcified; mild OM1; s/p xience to mLAD (no intervention on RCA). mild AI LHC 09/05 ([facility]): 90% mLAD, 80% oRCA, 50% LCX and mRCA; severe LV dysfunction; s/p PTCA/cutting balloon angioplasty to LAD and RCA MIBI 12/06 (): persantine--no STs; small area anteroapical isch; fixed IW with small area inferoapical reversibility--? isch; NORMAL EF A/P 87 yo with h/o HTN, HLD, CAD s/p MAHENDRA to LAD 2012, atrial fibrillation on AC, PMVT/torsades s/p AICD, severe , moderate mr, severe phtn on nocturnal O2, mild aortic root dilation, hypothyroidism, hemolytic anemia with elevated bilirubin (followed at [facility] for Heme), thrombocytopenia, bph and mild dementia who presents s/p unwitnessed fall/possible presyncope/syncope. recent fall/possible syncope - recently orthostatic and thought to be overdiuresed as outpatient. (see below ). + orthostatics here. Would hold lasix. - hold or decrease flomax dose if safe from perspective of bph. - patient also with severe . If true syncope - may be etiology. - monitor on tele. recent ICD check this month. Will repeat interrogation as mentioned below. - no need for repeat echo. Recent office echo from February - results above. - CE's neg x 1 04/24. No repeat obtained. EKG without acute ischemic changes. - check tsh. - infectious work up at discretion of pmd. - per report this is patient's second fall this month, consider PT evaluation at discretion of PMD. Afib - no h/o CVA/TIA; not a candidate for AC due to recurrent epistaxis. Per report , also not a candidate for watchman due to risk of bleeding on even short term AC. Additionally patient wished to avoid invasive procedures. - resume asa - currently rate controlled on low dose metoprolol, if bp remains stable would uptitrate to home dose tomorrow (25 mg qam/12.5 mg qpm) - lyte repletion prn HFpEF with superimposed valvular disease - severe /moderate (possibly severe ) MR - and severe phtn/mild RV impairment - see recent echo results above. Per report patient has declined tavr evaluation for now. - Recently had been taking lasix 80 mg/day instead of 80 mg alternating with 40 mg. --> This month pmd noted to be orthostatic with dry mucus membranes and lasix decreased to 40 mg daily --> then last week adjusted to 80 mg twice a week and 40 mg/day the other 5 days. - appears euvolemic. + orthostatics. will hold lasix. monitor daily standing weight, i/o's, bmp's - Avoid hypotension in setting of severe . CAD - s/p lad, rca angioplasty/atherectomy 08/2012 with restenosis after 3 months -- > stent to lad 11/2012 with residual dz (70-80% ostial RCA) - intervention deferred b/c pt with acute agitation during cath - CE's neg x 1 04/24. No repeat obtained. EKG without acute ischemic changes. No anginal sx's. -con't asa, toprol, atorvastatin, (on pravastatin 10 mg 5 days a week as outpatient) h/o PMVT/torsades now s/p ICD ([employer]), no prior shocks. - recent outpatient ICD check 03/2017 without significant arrhythmia (chronic afib, nsvt x 1) and with normal function. However, since concern for possible syncope will repeat ICD interrogation. - aggressive lyte repletion, K > 4.0, mg > 2.0. avoid qt prolonging drugs. HTN -stable, meds as above. mod dil ao root (4.1cm) - con't bb anemia - stable, con't to monitor
--- NOTE | 2017-04-25 17:56 | PN ---
Progress Note (short form) - Note Progress Note: Pt seen and examined. He is a right hand dominant 87 year old male s/p recent fall, the pt states he fell 2 weeks ago. PE LUE in sling LUE NVI, excellent ROM of the left elbow, forearm, wrist, fingers. + deformity over the midshaft of the left clavicle, not tenting the skin. Xrays Show an overlapping, displaced left midshaft clavicle fracture. Imp Left clavicle fracture, 2 weeks out. Rec Sling Can DC and f/u as an out pt Light activities only Repeat xrays in 2 weeks, may start P.T. then
[2017-04-25] MEDS ORDERED: POTASSIUM CHLORIDE TABS 20 MEQ TABLET.ER (FP) PO ONE (22:08)
[2017-04-25] MEDS: LATANOPROST 0.005% OPHTH SOLN 2.5ML BOTTLE OD SCH (22:58)
[2017-04-25] MEDS: MIRTAZAPINE 15 MG TABLET (FP) PO SCH (22:59)
[2017-04-25] MEDS: TAMSULOSIN HCL 0.4 MG CAP.ER.24H (FP) PO SCH (22:59)
[2017-04-25] MEDS: ATORVASTATIN CA 10 MG TABLET (FP) PO SCH (23:00)
[2017-04-26 05:34] LABS: URINE APPEARANCE CLEAR; URINE BILIRUBIN NEGATIVE (NEGATIVE); URINE BLOOD 1+ (NEGATIVE); URINE COLOR YELLOW; URINE GLUCOSE (UA) NEGATIVE (NEGATIVE); URINE KETONE NEGATIVE (NEGATIVE); URINE LEUK ESTERASE NEGATIVE (NEGATIVE); URINE NITRITE NEGATIVE (NEGATIVE); URINE PROTEIN NEGATIVE (NEGATIVE)
[2017-04-26 05:40] LABS: URINE BACTERIA RARE /hpf (NONE SEEN); URINE HYALINE CAST 7 /lpf; URINE MUCUS RARE
[2017-04-26] MEDS ORDERED: PT OWN MED DRAWER 7, Y5N ONE ×3 (06:34→20:43)
[2017-04-26] MEDS: LEVOTHYROXINE NA 25 MCG TABLET (FP) PO SCH (06:43)
[2017-04-26] MEDS: BRIMONIDINE TARTRATE 0.15% OPHTHALMIC 5 ML BOTTLE OD SCH ×2 (06:46→21:08)
[2017-04-26 08:33] LABS: BASO % 2.9 % (0-2.0); EOS % 8.9 % (0-4.5); HEMATOCRIT 32.7 % (35.4-49); HEMOGLOBIN 10.7 GM/dL (11.7-16.9); LYMPH % 9.9 % (8-40); MCHC 32.7 g/dl (32.0-35.9); MEAN CELL VOLUME 88.8 fl (80-96); MEAN PLT VOLUME 9.3 fl (7.5-11.1); MONO % 12.6 % (3.8-10.2); NEUT % 65.7 % (42.8-82.8); PLATELET COUNT 176 K/MM3 (134-434); RBC 3.68 M/mm3 (4.00-5.60); RDW 18.3 % (11.9-15.9); WHITE BLOOD COUNT 9.3 K/mm3 (4.0-10.0)
[2017-04-26] MEDS: DORZOLAMIDE 2% HCL OPHTHALMIC SOLUTION 10 ML BOTTLE OD SCH (09:32)
[2017-04-26] MEDS: FERROUS SO4 325 MG TABLET (FP) PO SCH ×2 (09:33→21:07)
[2017-04-26] MEDS: FOLIC ACID 1 MG TABLET (FP) PO SCH (09:33)
[2017-04-26] MEDS: METOPROLOL SUCCINATE 25 MG TAB.SR.24H (FP) PO SCH (09:33)
[2017-04-26] MEDS: ASPIRIN 81 MG CHEWABLE TABLETS PO SCH (09:33)
[2017-04-26 09:46] LABS: ANION GAP 8 (8-16); BLOOD UREA NITROGEN 16 mg/dL (7-18); CALCIUM 7.9 mg/dL (8.5-10.1); CHLORIDE 105 mmol/L (98-107); CO2 29 mmol/L (21-32); CREATININE 0.7 mg/dL (0.7-1.3); GLUCOSE,RANDOM 92 mg/dL (74-106); POTASSIUM 3.8 mmol/L (3.5-5.1); SODIUM 142 mmol/L (136-145)
--- NOTE | 2017-04-26 12:01 | PN ---
Progress Note (short form) - Note Progress Note: s: no cp sob palp dizzy; +cough Current Medications Generic Name Dose Route Start Last Admin Trade Name Freq PRN Reason Stop Dose Admin Acetaminophen 650 mg 04/25/17 16:39 Tylenol - PO Q6H PRN FEVER OR PAIN Aspirin 81 mg 04/26/17 10:00 04/26/17 09:33 Asa - PO 81 mg DAILY [facility] Administration Atorvastatin Calcium 10 mg 04/25/17 22:00 04/25/17 23:00 Lipitor - PO 10 mg HS [facility] Administration Brimonidine Tartrate 1 drop 04/25/17 06:00 04/26/17 06:46 Alphagan 0.15% - OD 1 drop TID [facility] Administration Dorzolamide HCl 1 drop 04/25/17 10:00 04/26/17 09:32 Trusopt 2% OD 1 drop DAILY [facility] Administration Ferrous Sulfate 325 mg 04/25/17 10:00 04/26/17 09:33 Feosol - PO 325 mg BID [facility] Administration Folic Acid 1 mg 04/25/17 10:00 04/26/17 09:33 Folic Acid - PO 1 mg DAILY [facility] Administration Latanoprost 1 drop 04/25/17 22:00 04/25/17 22:58 Xalatan 0.005% Eye Drops - OD 1 drop HS [facility] Administration Levothyroxine Sodium 25 mcg 04/25/17 07:00 04/26/17 06:43 Synthroid - PO 25 mcg DAILY@0700 [facility] Administration Metoprolol Succinate 25 mg 04/25/17 10:00 04/26/17 09:33 Toprol Xl - PO 25 mg DAILY [facility] Administration Mirtazapine 7.5 mg 04/25/17 22:00 04/25/17 22:59 Remeron - PO 7.5 mg HS [facility] Administration Morphine Sulfate 1 mg 04/25/17 01:39 04/25/17 13:18 Morphine Sulfate IVPUSH 1 mg Q4H PRN Administration PAIN Non-Formulary Medication 325 mg 04/25/17 02:42 Acetaminophen [Acetaminophen] PO PRN PRN PAIN Non-Formulary Medication 1 each 04/25/17 10:00 Calcium Carb/Magnesium Hydrox [Rolaids Chewable Tablet] PO DAILY [facility] Non-Formulary Medication 1 each 04/25/17 10:00 Calcium Citrate/Vitamin D2 [Calcium With Vit D Tablet] PO BID [facility] Non-Formulary Medication 30 mg 04/25/17 10:00 Dextromethorphan Polistirex [Delsym] PO DAILY [facility] Non-Formulary Medication 1 each 04/25/17 10:00 Memantine Hcl [Namenda Titration Samir] PO DAILY [facility] Non-Formulary Medication 125 mg 04/25/17 02:48 Simethicone [Simethicone] PO Q6H PRN GAS PAIN Tamsulosin HCl 0.4 mg 04/25/17 22:00 04/25/17 22:59 Flomax - PO 0.4 mg HS [facility] Administration Vital Signs Period Temp Pulse Resp BP Sys/Fox Pulse Ox Last 24 Hr 97.7 F-98.4 F 72-90 16-20 133-154/66-94 95-99 nad, calm jvd flat, neck supple ctab, nl effort irregularly irregular, nl s1, s2 2/6 murmur throughout precordium and at apex. + bs soft nt nd, no hsm ext without e/c/c alert and oriented no jaundice, diaphoresis. CBC, BMP 04/26/17 08:20 04/26/17 08:20 ekg: atrial fibrillation with intermittent v-pacing. lad. lvh. non-specific anterolateral t wave inversions, similar to priors. tele: intermittent v-pacing cxr: no congestion/infiltrates head ct: chronic small vessel ischemia. acute/chronic sinusitis. Echo 03/12: 1. The left ventricular size is normal. 2. Overall left ventricular systolic function is low-normal with a visually estimated EF between 50 - 55 %. 3. LA pressure could not be estimated. 4. The right ventricle is normal in size. 5. The right ventricular systolic function is mildly impaired. 6. Left atrium is severely dilated by volume. 7. The right atrium is mildly enlarged. 8. Electronic pacemaker leads seen in the RA and RV. Again noted is highly mobile RA lead, no vegetation seen. 9. The aortic valve was not well visualized. 10. There is mild aortic regurgitation. 11. Severe aortic stenosis is suspected. Peak/mean pressure gradient of 59 / 35 mmHg. Estimated aortic valve area by continuity equation is 0.6 cm2. The LVOT VTI of 12.5cm may be underestimated, which would lead to an underestimate of AV area. 12. The mitral valve leaflets are moderately thickened. Possible prolapse of the basal portion of anterior leaflet seen in some views (images #4 and #99). Overall MR severity appears mild to moderate, vs moderate. However systolic flow reversal appears to be present in pulmonary vein, which raises the possibility of severe MR being underappreciated on color flow assessment. 13. Moderate tricuspid regurgitation present. 14. There is at least moderate pulmonary hypertension (TR doppler signal is cut off). 15. The right ventricular systolic pressure is at least 52 mmHg (assuming RA pressure of 3). 16. The aortic root is moderately dilated (4.2 cm at sinuses of Valsalva). Laminar atherosclerotic plaque is present in root and arch. 17. Normal inferior vena cava with normal inspiratory collapse consistent with estimated right atrial pressure of 3 mmHg. LHC 12/06 no LMCA dz; 30-50% pLAD. 80-90% mLAD, calcified; 70-80% oRCA, calcified; mild OM1; s/p xience to mLAD (no intervention on RCA). mild AI LHC 09/05 ([facility] 90% mLAD, 80% oRCA, 50% LCX and mRCA; severe LV dysfunction; s/p PTCA/cutting balloon angioplasty to LAD and RCA MIBI 12/06 (): persantine--no STs; small area anteroapical isch; fixed IW with small area inferoapical reversibility--? isch; NORMAL EF A/P: 87 yo with h/o HTN, HLD, CAD s/p MAHENDRA to LAD 2012, atrial fibrillation on AC, PMVT/torsades s/p AICD, severe , moderate mr, severe phtn on nocturnal O2, mild aortic root dilation, hypothyroidism, hemolytic anemia with elevated bilirubin (followed at [place] for Heme), thrombocytopenia, bph and mild dementia who presents s/p unwitnessed fall/possible presyncope/syncope. recent fall/possible syncope - recently orthostatic and thought to be overdiuresed as outpatient. (see below ). + orthostatics here. Would hold lasix. - hold or decrease flomax dose if safe from perspective of bph. - patient also with severe . If true syncope - may be etiology. - monitor on tele. recent ICD check this month. Will repeat interrogation as mentioned below. - no need for repeat echo. Recent office echo from February - results above. - no signs acs - infectious work up at discretion of pmd. - per report this is patient's second fall this month, consider PT evaluation Afib - no h/o CVA/TIA; not a candidate for AC due to recurrent epistaxis. Per report , also not a candidate for watchman due to risk of bleeding on even short term AC. Additionally patient wished to avoid invasive procedures. - resume asa - currently rate controlled on low dose metoprolol, if bp remains stable would uptitrate to home dose tomorrow (25 mg qam/12.5 mg qpm) - lyte repletion prn HFpEF with superimposed valvular disease - severe /moderate (possibly severe ) MR - and severe phtn/mild RV impairment - see recent echo results above. Per report patient has declined tavr evaluation for now. - Recently had been taking lasix 80 mg/day instead of 80 mg alternating with 40 mg. --> This month pmd noted to be orthostatic with dry mucus membranes and lasix decreased to 40 mg daily --> then last week adjusted to 80 mg twice a week and 40 mg/day the other 5 days. - appears euvolemic. + orthostatics. will hold lasix. monitor daily standing weight, i/o's, bmp's - Avoid hypotension in setting of severe . CAD - s/p lad, rca angioplasty/atherectomy 08/2012 with restenosis after 3 months -- > stent to lad 11/2012 with residual dz (70-80% ostial RCA) - intervention deferred b/c pt with acute agitation during cath - CE's neg x 1 04/24. No repeat obtained. EKG without acute ischemic changes. No anginal sx's. -con't asa, toprol, atorvastatin, (on pravastatin 10 mg 5 days a week as outpatient) h/o PMVT/torsades now s/p ICD ([employer]), no prior shocks. - recent outpatient ICD check 03/2017 without significant arrhythmia (chronic afib, nsvt x 1) and with normal function. However, since concern for possible syncope will repeat ICD interrogation. - aggressive lyte repletion, K > 4.0, mg > 2.0. avoid qt prolonging drugs. HTN -stable, meds as above. mod dil ao root (4.1cm) - con't bb anemia - stable, con't to monitor
--- NOTE | 2017-04-26 14:16 | EKG ---
Test Reason : Blood Pressure : / mmHG Vent. Rate : 074 BPM Atrial Rate : 068 BPM P-R Int : 000 ms QRS Dur : 128 ms QT Int : 416 ms P-R-T Axes : 000 -67 131 degrees QTc Int : 461 ms ATRIAL FIBRILLATION WITH INTERMITENT VENTRICULAR PACING LEFT AXIS DEVIATION LEFT VENTRICULAR HYPERTROPHY WITH QRS WIDENING AND REPOLARIZATION ABNORMALITY ABNORMAL ECG WHEN COMPARED WITH ECG OF 24-APR-2017 21:32, NO SIGNIFICANT CHANGE WAS FOUND Confirmed by ARPIT SCHUSTER MD ([id number]) on 04/26/2017 2:16:04 PM Referred By: Confirmed By:ARPIT SCHUSTER MD
--- NOTE | 2017-04-26 21:00 | PN ---
Progress Note, Physician History of Present Illness: No new complaints - Current Medication List Current Medications: Active Medications Acetaminophen (Tylenol -) 650 mg PO Q6H PRN PRN Reason: FEVER OR PAIN Aspirin (Asa -) 81 mg PO DAILY [facility] Last Admin: 04/26/17 09:33 Dose: 81 mg Atorvastatin Calcium (Lipitor -) 10 mg PO HS [facility] Last Admin: 04/25/17 23:00 Dose: 10 mg Brimonidine Tartrate (Alphagan 0.15% -) 1 drop OD TID [facility] Last Admin: 04/26/17 06:46 Dose: 1 drop Dorzolamide HCl (Trusopt 2%) 1 drop OD DAILY [facility] Last Admin: 04/26/17 09:32 Dose: 1 drop Ferrous Sulfate (Feosol -) 325 mg PO BID [facility] Last Admin: 04/26/17 09:33 Dose: 325 mg Folic Acid (Folic Acid -) 1 mg PO DAILY [facility] Last Admin: 04/26/17 09:33 Dose: 1 mg Latanoprost (Xalatan 0.005% Eye Drops -) 1 drop OD HS [facility] Last Admin: 04/25/17 22:58 Dose: 1 drop Levothyroxine Sodium (Synthroid -) 25 mcg PO DAILY@0700 [facility] Last Admin: 04/26/17 06:43 Dose: 25 mcg Metoprolol Succinate (Toprol Xl -) 25 mg PO DAILY [facility] Last Admin: 04/26/17 09:33 Dose: 25 mg Mirtazapine (Remeron -) 7.5 mg PO HS [facility] Last Admin: 04/25/17 22:59 Dose: 7.5 mg Morphine Sulfate (Morphine Sulfate) 1 mg IVPUSH Q4H PRN PRN Reason: PAIN Last Admin: 04/25/17 13:18 Dose: 1 mg Non-Formulary Medication (Acetaminophen [Acetaminophen]) 325 mg PO PRN PRN PRN Reason: PAIN Non-Formulary Medication (Calcium Carb/Magnesium Hydrox [Rolaids Chewable Tablet ]) 1 each PO DAILY [facility] Non-Formulary Medication (Calcium Citrate/Vitamin D2 [Calcium With Vit D Tablet] ) 1 each PO BID [facility] Non-Formulary Medication (Dextromethorphan Polistirex [Delsym]) 30 mg PO DAILY [facility] Non-Formulary Medication (Memantine Hcl [Namenda Titration Samir]) 1 each PO DAILY [facility] Non-Formulary Medication (Simethicone [Simethicone]) 125 mg PO Q6H PRN PRN Reason: GAS PAIN Tamsulosin HCl (Flomax -) 0.4 mg PO HS [facility] Last Admin: 04/25/17 22:59 Dose: 0.4 mg - Objective Vital Signs: Vital Signs Temperature 97.2 F L 04/26/17 17:57 Pulse Rate 73 04/26/17 17:57 Respiratory Rate 18 04/26/17 17:57 Blood Pressure 124/87 04/26/17 17:57 O2 Sat by Pulse Oximetry (%) 99 04/26/17 18:00 Constitutional: Yes: No Distress Neck: Yes: WNL, Supple Cardiovascular: Yes: Pulse Irregular, Murmur (MASOUD at LSB) Respiratory: Yes: WNL, Regular, CTA Bilaterally Gastrointestinal: Yes: WNL, Normal Bowel Sounds, Soft Edema: No Labs: CBC, BMP 04/26/17 08:20 04/26/17 08:20 INR, PTT INR 1.58 (0.82-1.09) H 04/24/17 20:56 Problem List - Problems (1) Near syncope Assessment/Plan: Mechanical fall No arrythmias while on tele As per cardio Check carotid doppler ICD interrogation as per cardio Pt has been found to be orthostatic Probably due to volumed changes from lasix Code(s): R55 - SYNCOPE AND COLLAPSE (2) Clavicle fracture Assessment/Plan: Due to mechanical fall Ortho consult noted Cont sling P.T. in 2 weeks after repeat xray Code(s): S42.009A - FRACTURE OF UNSP PART OF UNSP CLAVICLE, INIT FOR CLOS FX Qualifiers: Encounter type: initial encounter Fracture type: closed Laterality: left (3) Atrial fibrillation Assessment/Plan: Heart rate controlled Pt not on AC due to recurrent epistaxis Cont metoprolol Code(s): I48.91 - UNSPECIFIED ATRIAL FIBRILLATION Qualifiers: Atrial fibrillation type: chronic Qualified Code(s): I48.2 - Chronic atrial fibrillation (4) Anemia Assessment/Plan: Multifactorial Due to chronic dz Cont FeSo4/folic acid Cont to monitor H/H Code(s): D64.9 - ANEMIA, UNSPECIFIED (5) HTN (hypertension) Assessment/Plan: BP stable Code(s): I10 - ESSENTIAL (PRIMARY) HYPERTENSION (6) Hypothyroid Assessment/Plan: Cont levothyroxine Code(s): E03.9 - HYPOTHYROIDISM, UNSPECIFIED (7) Aortic stenosis Code(s): I35.0 - NONRHEUMATIC AORTIC (VALVE) STENOSIS (8) BPH (benign prostatic hypertrophy) Assessment/Plan: Cont flomax Code(s): N40.0 - BENIGN PROSTATIC HYPERPLASIA WITHOUT LOWER URINRY TRACT SYMP Qualifiers: Lower urinary tract symptom detail: unspecified (9) CAD (coronary artery disease) Assessment/Plan: Cont asa/lipitor Code(s): I25.10 - ATHSCL HEART DISEASE OF [place] CORONARY ARTERY W/O ANG PCTRS Qualifiers: Coronary Disease-Associated Artery/Lesion type: [place] artery [place] vs. transplanted heart: [place] heart Associated angina: angina presence unspecified Qualified Code(s): I25.10 - Atherosclerotic heart disease of [place] coronary artery without angina pectoris (10) Dementia Assessment/Plan: Cont namenda Code(s): F03.90 - UNSPECIFIED DEMENTIA WITHOUT BEHAVIORAL DISTURBANCE
[2017-04-26] MEDS: MIRTAZAPINE 15 MG TABLET (FP) PO SCH (21:07)
[2017-04-26] MEDS: TAMSULOSIN HCL 0.4 MG CAP.ER.24H (FP) PO SCH (21:07)
[2017-04-26] MEDS: ATORVASTATIN CA 10 MG TABLET (FP) PO SCH (21:08)
[2017-04-26] MEDS: LATANOPROST 0.005% OPHTH SOLN 2.5ML BOTTLE OD SCH (21:09)
[2017-04-27] MEDS ORDERED: PT OWN MED DRAWER 7, Y5N ONE ×5 (06:20→20:41)
[2017-04-27] MEDS: LEVOTHYROXINE NA 25 MCG TABLET (FP) PO SCH (06:23)
[2017-04-27] MEDS: BRIMONIDINE TARTRATE 0.15% OPHTHALMIC 5 ML BOTTLE OD SCH ×3 (06:23→21:59)
[2017-04-27] MEDS: DORZOLAMIDE 2% HCL OPHTHALMIC SOLUTION 10 ML BOTTLE OD SCH (10:06)
[2017-04-27] MEDS: METOPROLOL SUCCINATE 25 MG TAB.SR.24H (FP) PO SCH (10:06)
[2017-04-27] MEDS: FOLIC ACID 1 MG TABLET (FP) PO SCH (10:06)
[2017-04-27] MEDS: FERROUS SO4 325 MG TABLET (FP) PO SCH ×2 (10:06→21:57)
[2017-04-27] MEDS: ASPIRIN 81 MG CHEWABLE TABLETS PO SCH (10:06)
--- NOTE | 2017-04-27 12:26 | PN ---
Progress Note (short form) - Note Progress Note: CC: possible syncope/fall s: no cp sob palp dizzy; + cough Current Medications Acetaminophen (Tylenol -) 650 mg PO Q6H PRN PRN Reason: FEVER OR PAIN Aspirin (Asa -) 81 mg PO DAILY [facility] Last Admin: 04/27/17 10:06 Dose: 81 mg Atorvastatin Calcium (Lipitor -) 10 mg PO HS [facility] Last Admin: 04/26/17 21:08 Dose: 10 mg Brimonidine Tartrate (Alphagan 0.15% -) 1 drop OD TID [facility] Last Admin: 04/27/17 06:23 Dose: 1 drop Dorzolamide HCl (Trusopt 2%) 1 drop OD DAILY [facility] Last Admin: 04/27/17 10:06 Dose: 1 drop Ferrous Sulfate (Feosol -) 325 mg PO BID [facility] Last Admin: 04/27/17 10:06 Dose: 325 mg Folic Acid (Folic Acid -) 1 mg PO DAILY [facility] Last Admin: 04/27/17 10:06 Dose: 1 mg Latanoprost (Xalatan 0.005% Eye Drops -) 1 drop OD [facility] Last Admin: 04/26/17 21:09 Dose: 1 drop Levothyroxine Sodium (Synthroid -) 25 mcg PO DAILY@0700 [facility] Last Admin: 04/27/17 06:23 Dose: 25 mcg Metoprolol Succinate (Toprol Xl -) 25 mg PO DAILY [facility] Last Admin: 04/27/17 10:06 Dose: 25 mg Mirtazapine (Remeron -) 7.5 mg PO [facility] Last Admin: 04/26/17 21:07 Dose: 7.5 mg Morphine Sulfate (Morphine Sulfate) 1 mg IVPUSH Q4H PRN PRN Reason: PAIN Last Admin: 04/25/17 13:18 Dose: 1 mg Non-Formulary Medication (Acetaminophen [Acetaminophen]) 325 mg PO PRN PRN PRN Reason: PAIN Non-Formulary Medication (Calcium Carb/Magnesium Hydrox [Rolaids Chewable Tablet ]) 1 each PO DAILY [facility] Non-Formulary Medication (Calcium Citrate/Vitamin D2 [Calcium With Vit D Tablet] ) 1 each PO BID [facility] Non-Formulary Medication (Dextromethorphan Polistirex [Delsym]) 30 mg PO DAILY [facility] Non-Formulary Medication (Memantine Hcl [Namenda Titration Samir]) 1 each PO DAILY [facility] Non-Formulary Medication (Simethicone [Simethicone]) 125 mg PO Q6H PRN PRN Reason: GAS PAIN Tamsulosin HCl (Flomax -) 0.4 mg PO HS [facility] Last Admin: 04/26/17 21:07 Dose: 0.4 mg Vital Signs - 24 hr 04/26/17 04/26/17 04/26/17 14:12 17:57 18:00 Temperature 97.9 F 97.2 F L Pulse Rate 74 73 Respiratory 16 18 Rate Blood Pressure 122/77 124/87 O2 Sat by Pulse 99 Oximetry (%) 04/26/17 04/27/17 04/27/17 21:00 01:55 02:00 Temperature 97.4 F L 98.2 F Pulse Rate 91 H 80 Respiratory 16 16 16 Rate Blood Pressure 151/88 142/92 O2 Sat by Pulse 99 Oximetry (%) 04/27/17 04/27/17 05:00 10:00 Temperature 98.4 F 98.4 F Pulse Rate 76 76 Respiratory 16 16 Rate Blood Pressure 148/89 148/89 O2 Sat by Pulse 99 Oximetry (%) Intake & Output 04/25/17 04/26/17 04/27/17 04/28/17 07:59 07:59 07:59 07:59 Intake Total 120 1000 900 300 Output Total 100 Balance 120 900 900 300 Weight 137 lb 128 lb 6.4 oz nad, calm jvd flat, neck supple ctab, nl effort irregularly irregular, nl s1, s2 2/6 murmur throughout precordium and at apex. + bs soft nt nd, no hsm ext without e/c/c alert and oriented no jaundice, diaphoresis. no CBC, BMP ekg: atrial fibrillation with intermittent v-pacing. lad. lvh. non-specific anterolateral t wave inversions, similar to priors. tele: afib, intermittent v-pacing cxr: no congestion/infiltrates head ct: chronic small vessel ischemia. acute/chronic sinusitis. Echo 03/12: 1. The left ventricular size is normal. 2. Overall left ventricular systolic function is low-normal with a visually estimated EF between 50 - 55 %. 3. LA pressure could not be estimated. 4. The right ventricle is normal in size. 5. The right ventricular systolic function is mildly impaired. 6. Left atrium is severely dilated by volume. 7. The right atrium is mildly enlarged. 8. Electronic pacemaker leads seen in the RA and RV. Again noted is highly mobile RA lead, no vegetation seen. 9. The aortic valve was not well visualized. 10. There is mild aortic regurgitation. 11. Severe aortic stenosis is suspected. Peak/mean pressure gradient of 59 / 35 mmHg. Estimated aortic valve area by continuity equation is 0.6 cm2. The LVOT VTI of 12.5cm may be underestimated, which would lead to an underestimate of AV area. 12. The mitral valve leaflets are moderately thickened. Possible prolapse of the basal portion of anterior leaflet seen in some views (images #4 and #99). Overall MR severity appears mild to moderate, vs moderate. However systolic flow reversal appears to be present in pulmonary vein, which raises the possibility of severe MR being underappreciated on color flow assessment. 13. Moderate tricuspid regurgitation present. 14. There is at least moderate pulmonary hypertension (TR doppler signal is cut off). 15. The right ventricular systolic pressure is at least 52 mmHg (assuming RA pressure of 3). 16. The aortic root is moderately dilated (4.2 cm at sinuses of Valsalva). Laminar atherosclerotic plaque is present in root and arch. 17. Normal inferior vena cava with normal inspiratory collapse consistent with estimated right atrial pressure of 3 mmHg. LHC 12/06 no LMCA dz; 30-50% pLAD. 80-90% mLAD, calcified; 70-80% oRCA, calcified; mild OM1; s/p xience to mLAD (no intervention on RCA). mild AI LHC 09/05 ([facility] 90% mLAD, 80% oRCA, 50% LCX and mRCA; severe LV dysfunction; s/p PTCA/cutting balloon angioplasty to LAD and RCA MIBI 12/06 (): persantine--no STs; small area anteroapical isch; fixed IW with small area inferoapical reversibility--? isch; NORMAL EF A/P: 87 yo with h/o HTN, HLD, CAD s/p MAHENDRA to LAD 2012, atrial fibrillation on AC, PMVT/torsades s/p AICD, severe , moderate mr, severe phtn on nocturnal O2, mild aortic root dilation, hypothyroidism, hemolytic anemia with elevated bilirubin (followed at [place] for Heme), thrombocytopenia, bph and mild dementia who presents s/p unwitnessed fall/possible presyncope/syncope. recent fall/possible syncope - recently orthostatic and thought to be overdiuresed as outpatient. (see below ). + orthostatics here. Would hold lasix. - hold or decrease flomax dose if safe from perspective of bph. - patient also with severe . If true syncope - may be etiology. - monitor on tele. recent ICD check this month. Will repeat interrogation as mentioned below --> per [employer] rep, interrogation may be able to be done by nurses on floor, will clarify. - no need for repeat echo. Recent office echo from February - results above. - no signs acs - infectious work up at discretion of pmd. - per report this is patient's second fall this month, consider PT evaluation - /2. appears euvolemic, will repeat orthostatics. con't to hold lasix for now. Afib - no h/o CVA/TIA; not a candidate for AC due to recurrent epistaxis. Per report , also not a candidate for watchman due to risk of bleeding on even short term AC. Additionally patient wished to avoid invasive procedures. - resumed asa - 1/2 currently rate controlled on low dose metoprolol. bp remains stable, if orthostatics negative, will uptitrate to home dose (25 mg qam/12.5 mg qpm) - lyte repletion prn HFpEF with superimposed valvular disease - severe /moderate (possibly severe ) MR - and severe phtn/mild RV impairment - see recent echo results above. Per report patient has declined tavr evaluation for now. - Recently had been taking lasix 80 mg/day instead of 80 mg alternating with 40 mg. --> This month pmd noted to be orthostatic with dry mucus membranes and lasix decreased to 40 mg daily --> then last week adjusted to 80 mg twice a week and 40 mg/day the other 5 days. - appears euvolemic. + orthostatics on admit. will hold lasix. monitor daily standing weight, i/o's, bmp's - 1/2 current standing weight below prior weights. reepeat orthostatics, con't to hold lasix as mentioned above. - Avoid hypotension in setting of severe . CAD - s/p lad, rca angioplasty/atherectomy 08/2012 with restenosis after 3 months -- > stent to lad 11/2012 with residual dz (70-80% ostial RCA) - intervention deferred b/c pt with acute agitation during cath - CE's neg x 1 04/24. No repeat obtained. EKG without acute ischemic changes. No anginal sx's. -con't asa, toprol, atorvastatin, (on pravastatin 10 mg 5 days a week as outpatient) h/o PMVT/torsades now s/p ICD ([employer]), no prior shocks. - recent outpatient ICD check 03/2017 without significant arrhythmia (chronic afib, nsvt x 1) and with normal function. However, since concern for possible syncope will repeat ICD interrogation. - aggressive lyte repletion, K > 4.0, mg > 2.0. avoid qt prolonging drugs. HTN -stable, meds as above. mod dil ao root (4.1cm) - con't bb anemia - overall stable,
[2017-04-27] MEDS: MEMANTINE HCL 10 MG TABLET (FP) PO SCH ×2 (13:13→21:58)
[2017-04-27] MEDS: CALCIUM 500MG/VIT-D 200 UNITS COMBO TABLET (FP) PO SCH ×2 (13:13→22:02)
[2017-04-27] MEDS: ATORVASTATIN CA 10 MG TABLET (FP) PO SCH (21:57)
[2017-04-27] MEDS: TAMSULOSIN HCL 0.4 MG CAP.ER.24H (FP) PO SCH (21:57)
[2017-04-27] MEDS: MIRTAZAPINE 15 MG TABLET (FP) PO SCH (21:57)
[2017-04-27] MEDS: LATANOPROST 0.005% OPHTH SOLN 2.5ML BOTTLE OD SCH (21:59)
[2017-04-28] MEDS: LEVOTHYROXINE NA 25 MCG TABLET (FP) PO SCH (06:12)
[2017-04-28] MEDS: BRIMONIDINE TARTRATE 0.15% OPHTHALMIC 5 ML BOTTLE OD SCH ×3 (06:12→22:03)
--- NOTE | 2017-04-28 09:20 | CON.NEURO ---
Consult - History of Present Illness History of Present Illness: 87-year-old male with a significant PMH of HTN, HLD, CAD s/p stents, atrial fibrillation, long QT s/p AICD, hypothyroidism, hemolytic anemia (followed at [facility] for Hem), elevated bili due to [place]', pulmonary HTN, ( uses O2 at night ) and dementia presents s/p syncope and fall at his jail ([facility] Patient states that he was reaching for something in a kitchen cabinet when he became light headed and fell to the floor. He fell on his left shoulder and left side of face. He states that staff at the facility came to assist him. He is unsure of how he came to arrive at hospital. He endorses some dysuria for the past few days. Also he mentions that this is the second fall in the past two weeks. Denies CP,PYLE,SOB, palpitations, abdominal pain, N/V. EKG shows paced rythym ; HX of aifb; no h/o CVA/TIA; Per report, also not a candidate for watchman due to risk of bleeding on even short term AC. Additionally patient deferred invasive procedures CT head shows no acute bleed TECHNIQUE: Sequential axial images were obtained from the base of the skull to the vertex. There is no evidence of acute intracranial hemorrhage, mass lesions or infarctions. There is a moderate degree of diffuse cerebral atrophy with sulcal widening and ventricular dilatation. Hypodense changes are noted throughout the periventricular white matter consistent with chronic, small vessel ischemia. There is mucosal thickening and a small amount of fluid within the maxillary, ethmoid sinuses and sphenoid sinuses. This suggests acute/ chronic sinusitis. The frontal sinuses and mastoid air cells are clear. IMPRESSION: No evidence of acute intracranial pathology. 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: Dementia Cardio/Vascular: Yes: AFIB, Aortic Insufficiency, Aortic Stenosis, CAD, CHF, HTN Pulmonary: Yes: Other (pulmonary HTN) Hepatobiliary: Yes: Other (gilbert's syndrom) Renal/: Yes: BPH Endocrine: Yes: Hypothyroidism - Past Surgical History Past Surgical History: Yes: AICD - Alcohol/Substance Use Hx Alcohol Use: No History of Substance Use: reports: None - Smoking History Smoking history: Never smoked Have you smoked in the past 12 months: No Aproximately how many cigarettes per day: 0 If you are a former smoker, when did you quit?: 40 YEARS AGO - Social History ADL: Support Services History of Recent Travel: No Home Medications - Allergies Allergies/Adverse Reactions: Allergies Allergy/AdvReac Type Severity Reaction Status Date / Time Penicillins Allergy Mild Rash Verified 04/24/17 20:20 lactose Allergy Unknown Verified 04/24/17 20:20 - Home Medications Home Medications: Ambulatory Orders Acetaminophen 325 mg PO PRN PRN 01/30/17 Brimonidine Tartrate [Alphagan 0.15% -] 1 drop OD TID 01/30/17 Calcium Citrate/Vitamin D2 [Calcium with Vit D Tablet] 1 each PO BID 01/30/17 Dorzolamide HCl [Trusopt 2% -] 1 drop OD DAILY 01/30/17 Ferrous Sulfate 325 mg PO BID 01/30/17 Folic Acid 1 mg PO DAILY 01/30/17 Latanoprost 0.005% Eye Drops [Xalatan 0.005% Eye Drops -] 1 drop HS 01/30/17 Levothyroxine [Synthroid -] 25 mcg PO DAILY 01/30/17 Metoprolol Succinate [Toprol XL -] 25 mg PO DAILY 01/30/17 Nut.tx.impaired Digest Fxn [Ensure Clear] 200 ml PO DAILY 01/30/17 Pravastatin Sodium 10 mg PO HS 01/30/17 Simethicone 125 mg PO Q6H PRN 01/30/17 Tamsulosin HCl 0.4 mg PO HS 01/30/17 Furosemide [Lasix -] 80 mg PO DAILY tablet 02/06/17 Memantine HCl [Namenda] 1 each PO DAILY 02/08/17 Mirtazapine 7.5 mg PO DAILY 02/08/17 Azithromycin [Zithromax -] 1 gm PO DAILY 04/24/17 Calcium Carb/Magnesium Hydrox [Rolaids Chewable Tablet] 1 each PO DAILY Dextromethorphan Polistirex [Delsym] 30 mg PO DAILY 04/24/17 Nitroglycerin 0.4 mg SL [id number] PRN 04/24/17 Physical Exam-Neuro Vital Signs: Vital Signs Temperature 97.7 F 04/28/17 06:00 Pulse Rate 81 04/28/17 06:00 Respiratory Rate 16 04/28/17 06:00 Blood Pressure 159/91 04/28/17 06:00 O2 Sat by Pulse Oximetry (%) 99 04/27/17 23:02 Labs: INR, PTT INR 1.58 (0.82-1.09) H 04/24/17 20:56 CBCD WBC 9.6 K/mm3 (4.0-10.0) 04/28/17 08:40 RBC 3.94 M/mm3 (4.00-5.60) L 04/28/17 08:40 Hgb 11.4 GM/dL (11.7-16.9) L 04/28/17 08:40 Hct 35.0 % (35.4-49) L 04/28/17 08:40 MCV 88.9 fl (80-96) 04/28/17 08:40 MCHC 32.6 g/dl (32.0-35.9) 04/28/17 08:40 RDW 19.1 % (11.9-15.9) H 04/28/17 08:40 Plt Count 257 K/MM3 (134-434) D 04/28/17 08:40 MPV 9.1 fl (7.5-11.1) 04/28/17 08:40 CMP Sodium 142 mmol/L (136-145) 04/26/17 08:20 Potassium 3.8 mmol/L (3.5-5.1) 04/26/17 08:20 Chloride 105 mmol/L (98-107) 04/26/17 08:20 Carbon Dioxide 29 mmol/L (21-32) 04/26/17 08:20 Anion Gap 8 (8-16) 04/26/17 08:20 BUN 16 mg/dL (7-18) 04/26/17 08:20 Creatinine 0.7 mg/dL (0.7-1.3) 04/26/17 08:20 Creat Clearance w eGFR > 60 (>60) 04/25/17 07:30 Calcium 7.9 mg/dL (8.5-10.1) L 04/26/17 08:20 Total Bilirubin 4.2 mg/dL (0.2-1.0) H 04/25/17 07:30 AST 21 U/L (15-37) 04/25/17 07:30 ALT 15 U/L (12-78) 04/25/17 07:30 Alkaline Phosphatase 78 U/L (45-117) 04/25/17 07:30 Total Protein 7.0 g/dl (6.4-8.2) 04/25/17 07:30 Albumin 3.4 g/dl (3.4-5.0) 04/25/17 07:30 - Neuro Exam Level Of Consciousness: Yes: Alert (awake and alert, YR 2013, know president, R facial (LMN) , limited gaze L, no drift or focal weakness, plantars down ) Imaging - Results Cat Scan: Report Reviewed, Image Reviewed Problem List - Problems (1) Afib Code(s): I48.91 - UNSPECIFIED ATRIAL FIBRILLATION (2) Dementia Code(s): F03.90 - UNSPECIFIED DEMENTIA WITHOUT BEHAVIORAL DISTURBANCE (3) Syncope and collapse Code(s): R55 - SYNCOPE AND COLLAPSE Assessment/Plan 87-year-old male with a significant PMH of HTN, HLD, CAD s/p stents, atrial fibrillation, long QT s/p AICD, hypothyroidism, hemolytic anemia (followed at [facility] for Hem), elevated bili due to Samaria', pulmonary HTN, ( uses O2 at night ) and dementia presents s/p syncope and fall at his jail ([facility]). noted to be orthostatic, also + valvular issues and HX of afib. --[id number] DC TAMULOSIN , FU CARD rec , cont ASA no evidence of new stroke /vascular event given falls, and prior bleeding issues --AC deferred dementia--on namenda 10bid-continue Dr Toth
[2017-04-28] MEDS: FERROUS SO4 325 MG TABLET (FP) PO SCH ×2 (09:24→22:03)
[2017-04-28] MEDS: METOPROLOL SUCCINATE 25 MG TAB.SR.24H (FP) PO SCH (09:24)
[2017-04-28] MEDS: FOLIC ACID 1 MG TABLET (FP) PO SCH (09:25)
[2017-04-28] MEDS: ASPIRIN 81 MG CHEWABLE TABLETS PO SCH (09:25)
[2017-04-28] MEDS: MEMANTINE HCL 10 MG TABLET (FP) PO SCH ×2 (09:25→22:03)
[2017-04-28] MEDS: DORZOLAMIDE 2% HCL OPHTHALMIC SOLUTION 10 ML BOTTLE OD SCH (09:25)
[2017-04-28 09:46] LABS: HEMOGLOBIN 11.4 GM/dL (11.7-16.9); MCHC 32.6 g/dl (32.0-35.9); MEAN CELL VOLUME 88.9 fl (80-96); MEAN PLT VOLUME 9.1 fl (7.5-11.1); PLATELET COUNT 257 K/MM3 (134-434); RBC 3.94 M/mm3 (4.00-5.60); RDW 19.1 % (11.9-15.9); WHITE BLOOD COUNT 9.6 K/mm3 (4.0-10.0)
[2017-04-28 10:26] LABS: ALBUMIN 3.4 g/dl (3.4-5.0); ANION GAP 6 (8-16); BLOOD UREA NITROGEN 16 mg/dL (7-18); CALCIUM 8.9 mg/dL (8.5-10.1); CHLORIDE 108 mmol/L (98-107); CO2 27 mmol/L (21-32); GLUCOSE,RANDOM 116 mg/dL (74-106); POTASSIUM 4.2 mmol/L (3.5-5.1); SODIUM 141 mmol/L (136-145)
[2017-04-28 10:29] LABS: ALK PHOS 81 U/L (45-117); BILIRUBIN,TOTAL 3.6 mg/dL (0.2-1.0); CREATININE 0.8 mg/dL (0.7-1.3); SGOT/AST 19 U/L (15-37); SGPT/ALT 15 U/L (12-78)
[2017-04-28] MEDS ORDERED: guaiFENesin/D-METHORPHAN HB 10 ML UNIT-DOSE CUPS PO PRN (10:30)
[2017-04-28] MEDS: CALCIUM 500MG/VIT-D 200 UNITS COMBO TABLET (FP) PO SCH ×2 (11:41→22:13)
--- NOTE | 2017-04-28 11:44 | PN ---
Progress Note (short form) - Note Progress Note: s: no cp sob palp dizzy Current Medications Generic Name Dose Route Start Last Admin Trade Name Freq PRN Reason Stop Dose Admin Acetaminophen 650 mg 04/25/17 16:39 Tylenol - PO Q6H PRN FEVER OR PAIN Aspirin 81 mg 04/26/17 10:00 04/28/17 09:25 Asa - PO 81 mg DAILY KISHAN Administration Atorvastatin Calcium 10 mg 04/25/17 22:00 04/27/17 21:57 Lipitor - PO 10 mg HS KISHAN Administration Brimonidine Tartrate 1 drop 04/25/17 06:00 04/28/17 06:12 Alphagan 0.15% - OD 1 drop TID KISHAN Administration Calcium Carbonate/Cholecalciferol 1 tab 04/27/17 12:45 04/27/17 22:02 Os-Ronaldo 500+D - PO 1 tab BID@1200,2300 KISHAN Administration Dorzolamide HCl 1 drop 04/25/17 10:00 04/28/17 09:25 Trusopt 2% OD 1 drop DAILY KISHAN Administration Ferrous Sulfate 325 mg 04/25/17 10:00 04/28/17 09:24 Feosol - PO 325 mg BID KISHAN Administration Folic Acid 1 mg 04/25/17 10:00 04/28/17 09:25 Folic Acid - PO 1 mg DAILY KISHAN Administration Guaifenesin 10 ml 04/28/17 10:30 Robitussin Dm - PO Q6H PRN COUGH Latanoprost 1 drop 04/25/17 22:00 04/27/17 21:59 Xalatan 0.005% Eye Drops - OD 1 drop HS KISHAN Administration Levothyroxine Sodium 25 mcg 04/25/17 07:00 04/28/17 06:12 Synthroid - PO 25 mcg DAILY@0700 KISHAN Administration Memantine 10 mg 04/27/17 12:45 04/28/17 09:25 Namenda - PO 10 mg BID KISHAN Administration Metoprolol Succinate 25 mg 04/25/17 10:00 04/28/17 09:24 Toprol Xl - PO 25 mg DAILY KISHAN Administration Mirtazapine 7.5 mg 04/25/17 22:00 04/27/17 21:57 Remeron - PO 7.5 mg HS KISHAN Administration Simethicone 80 mg 04/25/17 02:48 Mylicon - PO Q6H PRN GAS PAIN Tamsulosin HCl 0.4 mg 04/25/17 22:00 04/27/17 21:57 Flomax - PO 0.4 mg HS KISHAN Administration Vital Signs Period Temp Pulse Resp BP Sys/Fox Pulse Ox Last 24 Hr 97.7 F-98.4 F 72-92 16-20 115-159/73-91 99-99 nad, calm jvd flat, neck supple ctab, nl effort irregularly irregular, nl s1, s2 2/6 murmur throughout precordium and at apex. + bs soft nt nd, no hsm ext without e/c/c alert and oriented no jaundice, diaphoresis. CBC, BMP 04/28/17 08:40 04/28/17 08:40 ekg: atrial fibrillation with intermittent v-pacing. lad. lvh. non-specific anterolateral t wave inversions, similar to priors. tele: intermittent v-pacing cxr: no congestion/infiltrates head ct: chronic small vessel ischemia. acute/chronic sinusitis. Echo 03/12: 1. The left ventricular size is normal. 2. Overall left ventricular systolic function is low-normal with a visually estimated EF between 50 - 55 %. 3. LA pressure could not be estimated. 4. The right ventricle is normal in size. 5. The right ventricular systolic function is mildly impaired. 6. Left atrium is severely dilated by volume. 7. The right atrium is mildly enlarged. 8. Electronic pacemaker leads seen in the RA and RV. Again noted is highly mobile RA lead, no vegetation seen. 9. The aortic valve was not well visualized. 10. There is mild aortic regurgitation. 11. Severe aortic stenosis is suspected. Peak/mean pressure gradient of 59 / 35 mmHg. Estimated aortic valve area by continuity equation is 0.6 cm2. The LVOT VTI of 12.5cm may be underestimated, which would lead to an underestimate of AV area. 12. The mitral valve leaflets are moderately thickened. Possible prolapse of the basal portion of anterior leaflet seen in some views (images #4 and #99). Overall MR severity appears mild to moderate, vs moderate. However systolic flow reversal appears to be present in pulmonary vein, which raises the possibility of severe MR being underappreciated on color flow assessment. 13. Moderate tricuspid regurgitation present. 14. There is at least moderate pulmonary hypertension (TR doppler signal is cut off). 15. The right ventricular systolic pressure is at least 52 mmHg (assuming RA pressure of 3). 16. The aortic root is moderately dilated (4.2 cm at sinuses of Valsalva). Laminar atherosclerotic plaque is present in root and arch. 17. Normal inferior vena cava with normal inspiratory collapse consistent with estimated right atrial pressure of 3 mmHg. LHC 12/06 no LMCA dz; 30-50% pLAD. 80-90% mLAD, calcified; 70-80% oRCA, calcified; mild OM1; s/p xience to mLAD (no intervention on RCA). mild AI LHC 09/05 ([facility]): 90% mLAD, 80% oRCA, 50% LCX and mRCA; severe LV dysfunction; s/p PTCA/cutting balloon angioplasty to LAD and RCA MIBI 12/06 (): persantine--no STs; small area anteroapical isch; fixed IW with small area inferoapical reversibility--? isch; NORMAL EF A/P: 87 yo with h/o HTN, HLD, CAD s/p MAHENDRA to LAD 2012, atrial fibrillation on AC, PMVT/torsades s/p AICD, severe , moderate mr, severe phtn on nocturnal O2, mild aortic root dilation, hypothyroidism, hemolytic anemia with elevated bilirubin (followed at [facility] for Heme), thrombocytopenia, bph and mild dementia who presents s/p unwitnessed fall/possible presyncope/syncope. recent fall/possible syncope - recently orthostatic and thought to be overdiuresed as outpatient. (see below ). + orthostatics here. Would hold lasix. - hold or decrease flomax dose if safe from perspective of bph. - patient also with severe . If true syncope - may be etiology. - monitor on tele. recent ICD check this month. repeat interrogation --> per [id number] rep, interrogation may be able to be done by nurses on floor, will clarify. - no need for repeat echo. Recent office echo from February - results above. - no signs acs - infectious work up at discretion of pmd. - per report this is patient's second fall this month, consider PT evaluation - /2-3: appears euvolemic. con't to hold lasix for now. Afib - no h/o CVA/TIA; not a candidate for AC due to recurrent epistaxis. Per report , also not a candidate for watchman due to risk of bleeding on even short term AC. Additionally patient wished to avoid invasive procedures. - resumed asa - currently rate controlled on low dose metoprolol. bp remains stable. HFpEF with superimposed valvular disease - severe /moderate (possibly severe ) MR - and severe phtn/mild RV impairment - see recent echo results above. Per report patient has declined tavr evaluation for now. - Recently had been taking lasix 80 mg/day instead of 80 mg alternating with 40 mg. --> This month pmd noted to be orthostatic with dry mucus membranes and lasix decreased to 40 mg daily --> then last week adjusted to 80 mg twice a week and 40 mg/day the other 5 days. - appears euvolemic. + orthostatics on admit. will hold lasix for now. CAD - s/p lad, rca angioplasty/atherectomy 08/2012 with restenosis after 3 months -- > stent to lad 11/2012 with residual dz (70-80% ostial RCA) - intervention deferred b/c pt with acute agitation during cath - CE's neg x 1 04/24. No repeat obtained. EKG without acute ischemic changes. No anginal sx's. -con't asa, toprol, atorvastatin, (on pravastatin 10 mg 5 days a week as outpatient) h/o PMVT/torsades now s/p ICD ([employer]), no prior shocks. - recent outpatient ICD check 03/2017 without significant arrhythmia (chronic afib, nsvt x 1) and with normal function. HTN -stable, meds as above. mod dil ao root (4.1cm) - con't bb
[2017-04-28] MEDS ORDERED: PT OWN MED DRAWER 7, Y5N ONE (22:02)
[2017-04-28] MEDS: TAMSULOSIN HCL 0.4 MG CAP.ER.24H (FP) PO SCH (22:03)
[2017-04-28] MEDS: ATORVASTATIN CA 10 MG TABLET (FP) PO SCH (22:03)
[2017-04-28] MEDS: MIRTAZAPINE 15 MG TABLET (FP) PO SCH (22:04)
[2017-04-28] MEDS: LATANOPROST 0.005% OPHTH SOLN 2.5ML BOTTLE OD SCH (22:08)
--- NOTE | 2017-04-28 23:17 | PN ---
Progress Note (short form) - Note Progress Note: Coverage service by Dr Bruce 87-year-old male with a significant PMH of HTN, HLD, CAD s/p stents, atrial fibrillation, long QT s/p AICD, hypothyroidism, hemolytic anemia (followed at [place] for Hem), elevated bili due to [place]', pulmonary HTN, ( uses O2 at night ) and dementia presents s/p syncope and fall at his snf ([facility]). Patient states that he was reaching for something in a kitchen cabinet when he became light headed and fell to the floor. He fell on his left shoulder and left side of face. He states that staff at the facility came to assist him. He is unsure of how he came to arrive at hospital. He endorses some dysuria for the past few days. Also he mentions that this is the second fall in the past two weeks. Denies CP,PYLE,SOB, palpitations, abdominal pain, N/V. ER course was notable for: (1)EKG shows paced rythym (2)CT head shows no acute bleed (3)CXR shows no acute pathology (4)Clavicular XRAY shows clavicular fracture that may be old. In patient followed by Cardio evaluation by Ortho / Neurology Last "several days" c/o coughing and "congestion "not feeling well" remains afebrile / Nl WBC Vital Signs Period Temp Pulse Resp BP Sys/Fox Pulse Ox Last 24 Hr 97.7 F-98.4 F 72-84 16-16 121-159/72-91 99 neck supple heart reg ( paced) lungs scattered rhonchi left >right base abd soft non tender ext -edema Problem List - Problems (1) Accident due to mechanical fall without injury Code(s): W19.XXXA - UNSPECIFIED FALL, INITIAL ENCOUNTER (2) Syncope and collapse Code(s): R55 - SYNCOPE AND COLLAPSE (3) Generalized weakness Code(s): R53.1 - WEAKNESS (4) (HFpEF) heart failure with preserved ejection fraction Code(s): I50.30 - UNSPECIFIED DIASTOLIC (CONGESTIVE) HEART FAILURE (5) Clavicle fracture Code(s): S42.009A - FRACTURE OF UNSP PART OF UNSP CLAVICLE, INIT FOR CLOS FX Qualifiers: Encounter type: initial encounter Fracture type: closed Laterality: left (6) Pulmonary HTN Code(s): I27.20 - PULMONARY HYPERTENSION, UNSPECIFIED (7) Afib Code(s): I48.91 - UNSPECIFIED ATRIAL FIBRILLATION (8) Dementia Code(s): F03.90 - UNSPECIFIED DEMENTIA WITHOUT BEHAVIORAL DISTURBANCE (9) Near syncope Code(s): R55 - SYNCOPE AND COLLAPSE (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
--- NOTE | 2017-04-28 23:31 | PN ---
Progress Note (short form) - Note Progress Note: seen an dexamined in room c/o coughing and URI sx had CXR done today no acute findings Cough non productive no fever / no chills / No elevation in WBC Vital Signs Period Temp Pulse Resp BP Sys/Fox Pulse Ox Last 24 Hr 97.7 F-98.4 F 72-84 16-16 121-159/72-91 99 neck -JVD heart irreg/irregular + 2/6SM lungs rales over left base / mid field abd soft ext no edema left arm with good ROM CBC, BMP 04/28/17 08:40 04/28/17 08:40 Active Medications Acetaminophen (Tylenol -) 650 mg PO Q6H PRN PRN Reason: FEVER OR PAIN Aspirin (Asa -) 81 mg PO DAILY [facility] Last Admin: 04/28/17 09:25 Dose: 81 mg Atorvastatin Calcium (Lipitor -) 10 mg PO HS [facility] Last Admin: 04/28/17 22:03 Dose: 10 mg Brimonidine Tartrate (Alphagan 0.15% -) 1 drop OD TID [facility] Last Admin: 04/28/17 22:03 Dose: 1 drop Calcium Carbonate/Cholecalciferol (Os-Ronaldo 500+D -) 1 tab PO BID@1200,2300 [facility] Last Admin: 04/28/17 22:13 Dose: 1 tab Dorzolamide HCl (Trusopt 2%) 1 drop OD DAILY [facility] Last Admin: 04/28/17 09:25 Dose: 1 drop Ferrous Sulfate (Feosol -) 325 mg PO BID [facility] Last Admin: 04/28/17 22:03 Dose: 325 mg Folic Acid (Folic Acid -) 1 mg PO DAILY [facility] Last Admin: 04/28/17 09:25 Dose: 1 mg Guaifenesin (Robitussin Dm -) 10 ml PO Q6H PRN PRN Reason: COUGH Last Admin: 04/28/17 11:41 Dose: 10 ml Latanoprost (Xalatan 0.005% Eye Drops -) 1 drop OD HS [facility] Last Admin: 04/28/17 22:08 Dose: 1 drop Levothyroxine Sodium (Synthroid -) 25 mcg PO DAILY@0700 [facility] Last Admin: 04/28/17 06:12 Dose: 25 mcg Memantine (Namenda -) 10 mg PO BID [facility] Last Admin: 04/28/17 22:03 Dose: 10 mg Metoprolol Succinate (Toprol Xl -) 25 mg PO DAILY [facility] Last Admin: 04/28/17 09:24 Dose: 25 mg Mirtazapine (Remeron -) 7.5 mg PO HS [facility] Last Admin: 04/28/17 22:04 Dose: 7.5 mg Simethicone (Mylicon -) 80 mg PO Q6H PRN PRN Reason: GAS PAIN Tamsulosin HCl (Flomax -) 0.[address] [facility] Last Admin: 04/28/17 22:03 Dose: 0.4 mg # mechanical fall poor recall ? syncope / Altered MS + orthostatic volume depletion on admission --- due to meds ? appreciate Cardio follow up request PT evaluation # cough ?URI guafenesin CXR neg for acute findings # Afib rate controlled on BB ( well tolerated) not on a/c 2/2 to epistaxis no hx of CVA # if syncope ?? cause --if so ...TAVR ?? patient know to decline invasive procedures # HFpEF / with valvular Dz lasix adjusted as out patient on admission found to be orthostatic Lasix on hold today with rales at bases - --CXR neg for CHF discuss with cardio -- resume lasix in am # CAD No evidence of ACS TNI neg on admission / no EKG changes documented no CP/Dyspnea/or other anginal Sx # HTN stable continue meds # elevated Bili DX [place]' # heme thrombocytopenia / hemolytic anemia followed at [place] # hx of ICD recently interrogated -- no significant arrhythmias per cardio Problem List - Problems (1) Accident due to mechanical fall without injury Code(s): W19.XXXA - UNSPECIFIED FALL, INITIAL ENCOUNTER (2) Syncope and collapse Code(s): R55 - SYNCOPE AND COLLAPSE (3) Generalized weakness Code(s): R53.1 - WEAKNESS (4) (HFpEF) heart failure with preserved ejection fraction Code(s): I50.30 - UNSPECIFIED DIASTOLIC (CONGESTIVE) HEART FAILURE (5) Clavicle fracture Code(s): S42.009A - FRACTURE OF UNSP PART OF UNSP CLAVICLE, INIT FOR CLOS FX Qualifiers: Encounter type: initial encounter Fracture type: closed Laterality: left (6) Pulmonary HTN Code(s): I27.20 - PULMONARY HYPERTENSION, UNSPECIFIED (7) Afib Code(s): I48.91 - UNSPECIFIED ATRIAL FIBRILLATION (8) Dementia Code(s): F03.90 - UNSPECIFIED DEMENTIA WITHOUT BEHAVIORAL DISTURBANCE (9) Near syncope Code(s): R55 - SYNCOPE AND COLLAPSE (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
[2017-04-29] MEDS ORDERED: PT OWN MED DRAWER 7, Y5N ONE ×5 (06:24→22:31)
[2017-04-29] MEDS: LEVOTHYROXINE NA 25 MCG TABLET (FP) PO SCH (06:45)
[2017-04-29] MEDS: BRIMONIDINE TARTRATE 0.15% OPHTHALMIC 5 ML BOTTLE OD SCH ×3 (06:46→22:35)
[2017-04-29 08:15] LABS: BASO % 7.4 % (0-2.0); EOS % 11.4 % (0-4.5); HEMATOCRIT 34.1 % (35.4-49); LYMPH % 11.8 % (8-40); MCH 28.8 pg (25.7-33.7); MCHC 32.2 g/dl (32.0-35.9); MEAN CELL VOLUME 89.4 fl (80-96); MEAN PLT VOLUME 9.2 fl (7.5-11.1); MONO % 10.8 % (3.8-10.2); NEUT % 58.6 % (42.8-82.8); PLATELET COUNT 282 K/MM3 (134-434); RBC 3.81 M/mm3 (4.00-5.60); RDW 18.7 % (11.9-15.9); WHITE BLOOD COUNT 8.5 K/mm3 (4.0-10.0)
[2017-04-29 08:47] LABS: ANION GAP 8 (8-16); BLOOD UREA NITROGEN 18 mg/dL (7-18); CALCIUM 8.8 mg/dL (8.5-10.1); CHLORIDE 110 mmol/L (98-107); CO2 27 mmol/L (21-32); CREATININE 0.8 mg/dL (0.7-1.3); GLUCOSE,RANDOM 109 mg/dL (74-106); POTASSIUM 4.1 mmol/L (3.5-5.1); SODIUM 145 mmol/L (136-145)
[2017-04-29] MEDS: ASPIRIN 81 MG CHEWABLE TABLETS PO SCH (09:18)
[2017-04-29] MEDS: FOLIC ACID 1 MG TABLET (FP) PO SCH (09:18)
[2017-04-29] MEDS: MEMANTINE HCL 10 MG TABLET (FP) PO SCH ×2 (09:18→22:34)
[2017-04-29] MEDS: DORZOLAMIDE 2% HCL OPHTHALMIC SOLUTION 10 ML BOTTLE OD SCH (09:19)
[2017-04-29] MEDS: METOPROLOL SUCCINATE 25 MG TAB.SR.24H (FP) PO SCH (09:19)
[2017-04-29] MEDS: FERROUS SO4 325 MG TABLET (FP) PO SCH ×2 (09:19→22:35)
[2017-04-29] MEDS: CALCIUM 500MG/VIT-D 200 UNITS COMBO TABLET (FP) PO SCH ×2 (11:14→22:34)
[2017-04-29] MEDS: FUROSEMIDE 40 MG TABLET (FP) PO SCH (11:14)
[2017-04-29] MEDS: ACETAMINOPHEN 325 MG TABLET (FP) PO PRN ×2 (11:14→18:41)
--- NOTE | 2017-04-29 11:27 | PN ---
Progress Note (short form) - Note Progress Note: s: no cp sob palp dizzy Current Medications Generic Name Dose Route Start Last Admin Trade Name Freq PRN Reason Stop Dose Admin Acetaminophen 650 mg 04/25/17 16:39 04/29/17 11:14 Tylenol - PO 650 mg Q6H PRN Administration FEVER OR PAIN Aspirin 81 mg 04/26/17 10:00 04/29/17 09:18 Asa - PO 81 mg DAILY KISHAN Administration Atorvastatin Calcium 10 mg 04/25/17 22:00 04/28/17 22:03 Lipitor - PO 10 mg HS KISHAN Administration Brimonidine Tartrate 1 drop 04/25/17 06:00 04/29/17 06:46 Alphagan 0.15% - OD 1 drop TID KISHAN Administration Calcium Carbonate/Cholecalciferol 1 tab 04/27/17 12:45 04/29/17 11:14 Os-Ronaldo 500+D - PO 1 tab BID@1200,2300 KISHAN Administration Dorzolamide HCl 1 drop 04/25/17 10:00 04/29/17 09:19 Trusopt 2% OD 1 drop DAILY KISHAN Administration Ferrous Sulfate 325 mg 04/25/17 10:00 04/29/17 09:19 Feosol - PO 325 mg BID KISHAN Administration Folic Acid 1 mg 04/25/17 10:00 04/29/17 09:18 Folic Acid - PO 1 mg DAILY KISHAN Administration Furosemide 40 mg 04/29/17 10:00 04/29/17 11:14 Lasix - PO 40 mg DAILY KISHAN Administration Guaifenesin 10 ml 04/28/17 10:30 04/28/17 11:41 Robitussin Dm - PO 10 ml Q6H PRN Administration COUGH Latanoprost 1 drop 04/25/17 22:00 04/28/17 22:08 Xalatan 0.005% Eye Drops - OD 1 drop HS KISHAN Administration Levothyroxine Sodium 25 mcg 04/25/17 07:00 04/29/17 06:45 Synthroid - PO 25 mcg DAILY@0700 KISHAN Administration Memantine 10 mg 04/27/17 12:45 04/29/17 09:18 Namenda - PO 10 mg BID KISHAN Administration Metoprolol Succinate 25 mg 04/25/17 10:00 04/29/17 09:19 Toprol Xl - PO 25 mg DAILY KISHAN Administration Mirtazapine 7.5 mg 12/31/17 22:00 04/28/17 22:04 Remeron - PO 7.5 mg HS KISHAN Administration Simethicone 80 mg 04/25/17 02:48 Mylicon - PO Q6H PRN GAS PAIN Tamsulosin HCl 0.4 mg 04/25/17 22:00 04/28/17 22:03 Flomax - PO 0.4 mg HS KISHAN Administration Vital Signs Period Temp Pulse Resp BP Sys/Fox Pulse Ox Last 24 Hr 97.6 F-98.2 F 73-84 16-20 121-150/70-89 98 nad, calm jvd flat, neck supple ctab, nl effort irregularly irregular, nl s1, s2 2/6 murmur throughout precordium and at apex. + bs soft nt nd, no hsm ext without e/c/c alert and oriented no jaundice, diaphoresis. CBC, BMP 04/29/17 07:30 04/29/17 07:30 ekg: atrial fibrillation with intermittent v-pacing. lad. lvh. non-specific anterolateral t wave inversions, similar to priors. tele: intermittent v-pacing cxr: no congestion/infiltrates head ct: chronic small vessel ischemia. acute/chronic sinusitis. Echo 03/12: 1. The left ventricular size is normal. 2. Overall left ventricular systolic function is low-normal with a visually estimated EF between 50 - 55 %. 3. LA pressure could not be estimated. 4. The right ventricle is normal in size. 5. The right ventricular systolic function is mildly impaired. 6. Left atrium is severely dilated by volume. 7. The right atrium is mildly enlarged. 8. Electronic pacemaker leads seen in the RA and RV. Again noted is highly mobile RA lead, no vegetation seen. 9. The aortic valve was not well visualized. 10. There is mild aortic regurgitation. 11. Severe aortic stenosis is suspected. Peak/mean pressure gradient of 59 / 35 mmHg. Estimated aortic valve area by continuity equation is 0.6 cm2. The LVOT VTI of 12.5cm may be underestimated, which would lead to an underestimate of AV area. 12. The mitral valve leaflets are moderately thickened. Possible prolapse of the basal portion of anterior leaflet seen in some views (images #4 and #99). Overall MR severity appears mild to moderate, vs moderate. However systolic flow reversal appears to be present in pulmonary vein, which raises the possibility of severe MR being underappreciated on color flow assessment. 13. Moderate tricuspid regurgitation present. 14. There is at least moderate pulmonary hypertension (TR doppler signal is cut off). 15. The right ventricular systolic pressure is at least 52 mmHg (assuming RA pressure of 3). 16. The aortic root is moderately dilated (4.2 cm at sinuses of Valsalva). Laminar atherosclerotic plaque is present in root and arch. 17. Normal inferior vena cava with normal inspiratory collapse consistent with estimated right atrial pressure of 3 mmHg. C 12/06 no LMCA dz; 30-50% pLAD. 80-90% mLAD, calcified; 70-80% oRCA, calcified; mild OM1; s/p xience to mLAD (no intervention on RCA). mild AI LHC 09/05 ([facility]): 90% mLAD, 80% oRCA, 50% LCX and mRCA; severe LV dysfunction; s/p PTCA/cutting balloon angioplasty to LAD and RCA MIBI 12/06 (): persantine--no STs; small area anteroapical isch; fixed IW with small area inferoapical reversibility--? isch; NORMAL EF A/P: 87 yo with h/o HTN, HLD, CAD s/p MAHNEDRA to LAD 2012, atrial fibrillation on AC, PMVT/torsades s/p AICD, severe , moderate mr, severe phtn on nocturnal O2, mild aortic root dilation, hypothyroidism, hemolytic anemia with elevated bilirubin (followed at [facility] for Heme), thrombocytopenia, bph and mild dementia who presents s/p unwitnessed fall/possible presyncope/syncope. recent fall/possible syncope - recently orthostatic and thought to be overdiuresed as outpatient. (see below ). + orthostatics here. Would hold lasix. - hold or decrease flomax dose if safe from perspective of bph. - patient also with severe . If true syncope - may be etiology. - monitor on tele. recent ICD check this month. - no need for repeat echo. Recent office echo from February - results above. - no signs acs - infectious work up at discretion of pmd. - per report this is patient's second fall this month, consider PT evaluation - /2-3: appears euvolemic. con't to hold lasix for now. - 04/29: on po lasix for maintenance now Afib - no h/o CVA/TIA; not a candidate for AC due to recurrent epistaxis. Per report , also not a candidate for watchman due to risk of bleeding on even short term AC. Additionally patient wished to avoid invasive procedures. - resumed asa - currently rate controlled on low dose metoprolol. bp remains stable. HFpEF with superimposed valvular disease - severe /moderate (possibly severe ) MR - and severe phtn/mild RV impairment - see recent echo results above. Per report patient has declined tavr evaluation for now. - cont lasix 40 po qd for maintenance CAD - s/p lad, rca angioplasty/atherectomy 08/2012 with restenosis after 3 months -- > stent to lad 11/2012 with residual dz (70-80% ostial RCA) - intervention deferred b/c pt with acute agitation during cath - CE's neg x 1 04/24. No repeat obtained. EKG without acute ischemic changes. No anginal sx's. -con't asa, toprol, atorvastatin, (on pravastatin 10 mg 5 days a week as outpatient) h/o PMVT/torsades now s/p ICD ([employer]), no prior shocks. - recent outpatient ICD check 03/2017 without significant arrhythmia (chronic afib, nsvt x 1) and with normal function. HTN -stable, meds as above. mod dil ao root (4.1cm) - con't bb
[2017-04-29] MEDS: MIRTAZAPINE 15 MG TABLET (FP) PO SCH (22:34)
[2017-04-29] MEDS: ATORVASTATIN CA 10 MG TABLET (FP) PO SCH (22:34)
[2017-04-29] MEDS: TAMSULOSIN HCL 0.4 MG CAP.ER.24H (FP) PO SCH (22:34)
[2017-04-29] MEDS: LATANOPROST 0.005% OPHTH SOLN 2.5ML BOTTLE OD SCH (22:39)
[2017-04-30] MEDS ORDERED: PT OWN MED DRAWER 7, Y5N ONE ×4 (06:07→11:37)
[2017-04-30] MEDS: LEVOTHYROXINE NA 25 MCG TABLET (FP) PO SCH (06:08)
[2017-04-30] MEDS: BRIMONIDINE TARTRATE 0.15% OPHTHALMIC 5 ML BOTTLE OD SCH ×2 (06:09→15:00)
[2017-04-30] MEDS: FOLIC ACID 1 MG TABLET (FP) PO SCH (09:53)
[2017-04-30] MEDS: ASPIRIN 81 MG CHEWABLE TABLETS PO SCH (09:54)
[2017-04-30] MEDS: MEMANTINE HCL 10 MG TABLET (FP) PO SCH (09:54)
[2017-04-30] MEDS: FERROUS SO4 325 MG TABLET (FP) PO SCH (09:54)
[2017-04-30] MEDS: FUROSEMIDE 40 MG TABLET (FP) PO SCH (09:54)
[2017-04-30] MEDS: METOPROLOL SUCCINATE 25 MG TAB.SR.24H (FP) PO SCH (09:54)
--- NOTE | 2017-04-30 11:10 | PN ---
Progress Note (short form) - Note Progress Note: seen an dexamined in room reports feeling better / no cough / fever / chills lasix resumed 1/ Vital Signs Period Temp Pulse Resp BP Sys/Fox Pulse Ox Last 24 Hr 97.7 F-98.4 F 72-84 16-16 121-159/72-91 99 neck -JVD heart irreg/irregular + 2/6SM lungs clear bilat abd soft ext no edema left arm with good ROM / no edema CBC, BMP 04/29/17 07:30 04/29/17 07:30 Active Medications Acetaminophen (Tylenol -) 650 mg PO Q6H PRN PRN Reason: FEVER OR PAIN Last Admin: 04/29/17 18:41 Dose: 650 mg Aspirin (Asa -) 81 mg PO DAILY [facility] Last Admin: 04/30/17 09:54 Dose: 81 mg Atorvastatin Calcium (Lipitor -) 10 mg PO HS [facility] Last Admin: 04/29/17 22:34 Dose: 10 mg Brimonidine Tartrate (Alphagan 0.15% -) 1 drop OD TID [facility] Last Admin: 04/30/17 06:09 Dose: 1 drop Calcium Carbonate/Cholecalciferol (Os-Ronaldo 500+D -) 1 tab PO BID@1200,2300 [facility] Last Admin: 04/29/17 22:34 Dose: 1 tab Dorzolamide HCl (Trusopt 2%) 1 drop OD DAILY [facility] Last Admin: 04/29/17 09:19 Dose: 1 drop Ferrous Sulfate (Feosol -) 325 mg PO BID [facility] Last Admin: 04/30/17 09:54 Dose: 325 mg Folic Acid (Folic Acid -) 1 mg PO DAILY [facility] Last Admin: 04/30/17 09:53 Dose: 1 mg Furosemide (Lasix -) 40 mg PO DAILY [facility] Last Admin: 04/30/17 09:54 Dose: 40 mg Guaifenesin (Robitussin Dm -) 10 ml PO Q6H PRN PRN Reason: COUGH Last Admin: 04/28/17 11:41 Dose: 10 ml Latanoprost (Xalatan 0.005% Eye Drops -) 1 drop OD HS [facility] Last Admin: 04/29/17 22:39 Dose: 1 drop Levothyroxine Sodium (Synthroid -) 25 mcg PO DAILY@0700 [facility] Last Admin: 04/30/17 06:08 Dose: 25 mcg Memantine (Namenda -) 10 mg PO BID [facility] Last Admin: 04/30/17 09:54 Dose: 10 mg Metoprolol Succinate (Toprol Xl -) 25 mg PO DAILY [facility] Last Admin: 04/30/17 09:54 Dose: 25 mg Mirtazapine (Remeron -) 7.5 mg PO HS [facility] Last Admin: 04/29/17 22:34 Dose: 7.5 mg Simethicone (Mylicon -) 80 mg PO Q6H PRN PRN Reason: GAS PAIN Tamsulosin HCl (Flomax -) 0.4 mg PO HS [facility] Last Admin: 04/29/17 22:34 Dose: 0.4 mg # mechanical fall poor recall ? syncope / Altered MS + orthostatic volume depletion on admission --- due to meds ? appreciate Cardio follow up PT evaluation done # cough CXR neg for acute findings # Afib rate controlled on BB ( well tolerated) not on a/c 2/2 to epistaxis no hx of CVA # if syncope ?? cause --if so ...TAVR ?? patient know to decline invasive procedures # HFpEF / with valvular Dz lasix adjusted as out patient on admission found to be orthostatic Lasix resumed 04/29 # CAD No evidence of ACS TNI neg on admission / no EKG changes documented no CP/Dyspnea/or other anginal Sx # HTN stable continue meds # elevated Bili DX [place]' # heme thrombocytopenia / hemolytic anemia followed at [place] # hx of ICD recently interrogated -- no significant arrhythmias per cardio Problem List - Problems (1) Accident due to mechanical fall without injury Code(s): W19.XXXA - UNSPECIFIED FALL, INITIAL ENCOUNTER (2) Syncope and collapse Code(s): R55 - SYNCOPE AND COLLAPSE (3) Generalized weakness Code(s): R53.1 - WEAKNESS (4) (HFpEF) heart failure with preserved ejection fraction Code(s): I50.30 - UNSPECIFIED DIASTOLIC (CONGESTIVE) HEART FAILURE (5) Clavicle fracture Code(s): S42.009A - FRACTURE OF UNSP PART OF UNSP CLAVICLE, INIT FOR CLOS FX Qualifiers: Encounter type: initial encounter Fracture type: closed Laterality: left (6) Pulmonary HTN Code(s): I27.20 - PULMONARY HYPERTENSION, UNSPECIFIED (7) Afib Code(s): I48.91 - UNSPECIFIED ATRIAL FIBRILLATION (8) Dementia Code(s): F03.90 - UNSPECIFIED DEMENTIA WITHOUT BEHAVIORAL DISTURBANCE (9) Near syncope Code(s): R55 - SYNCOPE AND COLLAPSE (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
[2017-04-30] MEDS: CALCIUM 500MG/VIT-D 200 UNITS COMBO TABLET (FP) PO SCH (11:38)
[2017-04-30] MEDS: DORZOLAMIDE 2% HCL OPHTHALMIC SOLUTION 10 ML BOTTLE OD SCH (11:39)
--- NOTE | 2017-04-30 11:43 | DS ---
Physical Examination Vital Signs: Vital Signs Temperature 98 F 04/30/17 09:52 Pulse Rate 87 04/30/17 09:52 Respiratory Rate 20 04/30/17 09:52 Blood Pressure 130/79 04/30/17 09:52 O2 Sat by Pulse Oximetry (%) 94 L 04/30/17 09:00 Findings/Remarks: 87-year-old male with a significant PMH of HTN, HLD, CAD s/p stents, atrial fibrillation, long QT s/p AICD, hypothyroidism, hemolytic anemia (followed at [place] for Hem), elevated bili due to [place]', pulmonary HTN, ( uses O2 at night ) and dementia presents s/p syncope and fall at his [facility] ([facility] Patient states that he was reaching for something in a kitchen cabinet when he became light headed and fell to the floor. He fell on his left shoulder and left side of face. He states that staff at the facility came to assist him. He is unsure of how he came to arrive at hospital. He endorses some dysuria for the past few days. Also he mentions that this is the second fall in the past two weeks. Denies CP,PYLE,SOB, palpitations, abdominal pain, N/V. ER course was notable for: (1)EKG shows paced rythym (2)CT head shows no acute bleed (3)CXR shows no acute pathology (4)Clavicular XRAY shows clavicular fracture that may be old. In patient followed by Cardio meds reviewed and adjusted evaluation by Ortho - clavicular fx is old -will benefit from PT Evaluated by PT [facility] Neurology - stable Constitutional: Yes: No Distress, Cachectic, Thin Eyes: Yes: Conjunctiva Clear, EOM Intact HENT: Yes: Atraumatic, Normocephalic Neck: Yes: Supple, Trachea Midline Cardiovascular: Yes: Pulse Irregular, Murmur Respiratory: Yes: CTA Bilaterally Gastrointestinal: Yes: Normal Bowel Sounds, Soft Renal/: Yes: WNL Breast(s): Yes: WNL Musculoskeletal: Yes: WNL, Muscle Weakness Extremities: Yes: WNL Edema: No Peripheral Pulses WNL: Yes Peripheral Pulses: Left Radial: 2+, Right Radial: 2+, Left Doralis Pedis: 2+, Right Dorsalis Pedis: 2+, Left Femoral: 2+, Right Femoral: 2+ Integumentary: Yes: WNL Neurological: Yes: Alert, Oriented Psychiatric: Yes: Alert, Oriented Labs: CBC, BMP 04/29/17 07:30 04/29/17 07:30 Discharge Summary Reason For Visit: FRACTURE OF CLAVICAL/S YNCOPE AND COLLAGE Current Active Problems (HFpEF) heart failure with preserved ejection fraction (Acute) Accident due to mechanical fall without injury (Acute) Afib (Acute) Clavicle fracture (Acute) Dementia (Acute) History of prolonged Q-T interval on ECG (Acute) Near syncope (Acute) Pulmonary HTN (Acute) Syncope and collapse (Acute) Condition: Improved - Instructions Disposition: HALF-WAY FACILITY - Home Medications Comprehensive Discharge Medication List: Ambulatory Orders Acetaminophen 325 mg PO PRN PRN 01/30/17 Brimonidine Tartrate [Alphagan 0.15% -] 1 drop OD TID 01/30/17 Folic Acid 1 mg PO DAILY 01/30/17 Levothyroxine [Synthroid -] 25 mcg PO DAILY 01/30/17 Metoprolol Succinate [Toprol XL -] 25 mg PO DAILY 01/30/17 Nut.tx.impaired Digest Fxn [Ensure Clear] 200 ml PO DAILY 01/30/17 Pravastatin Sodium 10 mg PO HS 01/30/17 Simethicone 125 mg PO Q6H PRN 01/30/17 Memantine HCl [Namenda Titration Samir] 1 each PO DAILY 02/08/17 Mirtazapine 7.5 mg PO DAILY 02/08/17 Calcium Carb/Magnesium Hydrox [Rolaids Chewable Tablet] 1 each PO DAILY Dextromethorphan Polistirex [Delsym] 30 mg PO DAILY 04/24/17 Nitroglycerin 0.4 mg SL [id number] PRN 04/24/17 Acetaminophen [Tylenol .Regular Strength -] 650 mg PO Q6H PRN tablet 04/30/17 Aspirin [ASA -] 81 mg PO DAILY tab.chew 04/30/17 Brimonidine Tartrate [Alphagan 0.15% -] 1 drop OD TID drops 04/30/17 Calcium 500Mg/Vit-D 200 Units [Os-Ronaldo 500+D -] 1 tab PO BID@1200,2300 tab 04/30 Dorzolamide HCl [Trusopt 2% -] 1 drop OD DAILY drops 04/30/17 Ferrous Sulfate [Feosol] 325 mg PO BID ud 04/30/17 Folic Acid - 1 mg PO DAILY tablet 04/30/17 Furosemide [Lasix -] 40 mg PO DAILY tablet 04/30/17 Latanoprost 0.005% Eye Drops [Xalatan 0.005% Eye Drops -] 1 drop OD HS drops Levothyroxine [Synthroid -] 25 mcg PO DAILY@0700 tablet 04/30/17 Memantine HCl [Namenda -] 10 mg PO BID tablet 04/30/17 Metoprolol Succinate [Toprol XL -] 25 mg PO DAILY 30 Days #30 tab.sr.24h Mirtazapine [Remeron -] 7.5 mg PO HS tablet 04/30/17 Simethicone [Mylicon -] 80 mg PO Q6H PRN tab.chew 04/30/17
--- NOTE | 2017-04-30 11:48 | PN ---
Progress Note (short form) - Note Progress Note: s: no cp sob palp dizzy Current Medications Generic Name Dose Route Start Last Admin Trade Name Freq PRN Reason Stop Dose Admin Acetaminophen 650 mg 04/25/17 16:39 04/29/17 18:41 Tylenol - PO 650 mg Q6H PRN Administration FEVER OR PAIN Aspirin 81 mg 04/26/17 10:00 04/30/17 09:54 Asa - PO 81 mg DAILY KISHAN Administration Atorvastatin Calcium 10 mg 04/25/17 22:00 04/29/17 22:34 Lipitor - PO 10 mg HS KISHAN Administration Brimonidine Tartrate 1 drop 04/25/17 06:00 04/30/17 06:09 Alphagan 0.15% - OD 1 drop TID KISHAN Administration Calcium Carbonate/Cholecalciferol 1 tab 04/27/17 12:45 04/30/17 11:38 Os-Ronaldo 500+D - PO 1 tab BID@1200,2300 KISHAN Administration Dorzolamide HCl 1 drop 04/25/17 10:00 04/30/17 11:39 Trusopt 2% OD 1 drop DAILY KISHAN Administration Ferrous Sulfate 325 mg 04/25/17 10:00 04/30/17 09:54 Feosol - PO 325 mg BID KISHAN Administration Folic Acid 1 mg 04/25/17 10:00 04/30/17 09:53 Folic Acid - PO 1 mg DAILY KISHAN Administration Furosemide 40 mg 04/29/17 10:00 04/30/17 09:54 Lasix - PO 40 mg DAILY KISHAN Administration Guaifenesin 10 ml 04/28/17 10:30 04/28/17 11:41 Robitussin Dm - PO 10 ml Q6H PRN Administration COUGH Latanoprost 1 drop 04/25/17 22:00 04/29/17 22:39 Xalatan 0.005% Eye Drops - OD 1 drop HS KISHAN Administration Levothyroxine Sodium 25 mcg 04/25/17 07:00 04/30/17 06:08 Synthroid - PO 25 mcg DAILY@0700 KISHAN Administration Memantine 10 mg 04/27/17 12:45 04/30/17 09:54 Namenda - PO 10 mg BID KISHAN Administration Metoprolol Succinate 25 mg 04/25/17 10:00 04/30/17 09:54 Toprol Xl - PO 25 mg DAILY KISHAN Administration Mirtazapine 7.5 mg 12/31/17 22:00 04/29/17 22:34 Remeron - PO 7.5 mg HS KISHAN Administration Simethicone 80 mg 04/25/17 02:48 Mylicon - PO Q6H PRN GAS PAIN Tamsulosin HCl 0.4 mg 04/25/17 22:00 04/29/17 22:34 Flomax - PO 0.4 mg HS KISHAN Administration Vital Signs Period Temp Pulse Resp BP Sys/Fox Pulse Ox Last 24 Hr 97.3 F-98.0 F 72-87 16-20 93-146/51-82 94-94 nad, calm jvd flat, neck supple ctab, nl effort irregularly irregular, nl s1, s2 2/6 murmur throughout precordium and at apex. + bs soft nt nd, no hsm ext without e/c/c alert and oriented no jaundice, diaphoresis. CBC, BMP 04/29/17 07:30 04/29/17 07:30 ekg: atrial fibrillation with intermittent v-pacing. lad. lvh. non-specific anterolateral t wave inversions, similar to priors. tele: intermittent v-pacing cxr: no congestion/infiltrates head ct: chronic small vessel ischemia. acute/chronic sinusitis. Echo 03/12: 1. The left ventricular size is normal. 2. Overall left ventricular systolic function is low-normal with a visually estimated EF between 50 - 55 %. 3. LA pressure could not be estimated. 4. The right ventricle is normal in size. 5. The right ventricular systolic function is mildly impaired. 6. Left atrium is severely dilated by volume. 7. The right atrium is mildly enlarged. 8. Electronic pacemaker leads seen in the RA and RV. Again noted is highly mobile RA lead, no vegetation seen. 9. The aortic valve was not well visualized. 10. There is mild aortic regurgitation. 11. Severe aortic stenosis is suspected. Peak/mean pressure gradient of 59 / 35 mmHg. Estimated aortic valve area by continuity equation is 0.6 cm2. The LVOT VTI of 12.5cm may be underestimated, which would lead to an underestimate of AV area. 12. The mitral valve leaflets are moderately thickened. Possible prolapse of the basal portion of anterior leaflet seen in some views (images #4 and #99). Overall MR severity appears mild to moderate, vs moderate. However systolic flow reversal appears to be present in pulmonary vein, which raises the possibility of severe MR being underappreciated on color flow assessment. 13. Moderate tricuspid regurgitation present. 14. There is at least moderate pulmonary hypertension (TR doppler signal is cut off). 15. The right ventricular systolic pressure is at least 52 mmHg (assuming RA pressure of 3). 16. The aortic root is moderately dilated (4.2 cm at sinuses of Valsalva). Laminar atherosclerotic plaque is present in root and arch. 17. Normal inferior vena cava with normal inspiratory collapse consistent with estimated right atrial pressure of 3 mmHg. [facility] 12/06 no LMCA dz; 30-50% pLAD. 80-90% mLAD, calcified; 70-80% oRCA, calcified; mild OM1; s/p xience to mLAD (no intervention on RCA). mild AI LHC 09/05 ([facility]): 90% mLAD, 80% oRCA, 50% LCX and mRCA; severe LV dysfunction; s/p PTCA/cutting balloon angioplasty to LAD and RCA MIBI 12/06 (): persantine--no STs; small area anteroapical isch; fixed IW with small area inferoapical reversibility--? isch; NORMAL EF A/P: 87 yo with h/o HTN, HLD, CAD s/p MAHENDRA to LAD 2012, atrial fibrillation on AC, PMVT/torsades s/p AICD, severe , moderate mr, severe phtn on nocturnal O2, mild aortic root dilation, hypothyroidism, hemolytic anemia with elevated bilirubin (followed at [place] for Heme), thrombocytopenia, bph and mild dementia who presents s/p unwitnessed fall/possible presyncope/syncope. recent fall/possible syncope - recently orthostatic and thought to be overdiuresed as outpatient. (see below ). + orthostatics here. Would hold lasix. - hold or decrease flomax dose if safe from perspective of bph. - patient also with severe . If true syncope - may be etiology. - monitor on tele. recent ICD check this month. - no need for repeat echo. Recent office echo from February - results above. - no signs acs - infectious work up at discretion of pmd. - per report this is patient's second fall this month, consider PT evaluation - /2-3: appears euvolemic. con't to hold lasix for now. - 04/29-5: on po lasix for maintenance now Afib - no h/o CVA/TIA; not a candidate for AC due to recurrent epistaxis. Per report , also not a candidate for watchman due to risk of bleeding on even short term AC. Additionally patient wished to avoid invasive procedures. - resumed asa - currently rate controlled on low dose metoprolol. bp remains stable. HFpEF with superimposed valvular disease - severe /moderate (possibly severe ) MR - and severe phtn/mild RV impairment - see recent echo results above. Per report patient has declined tavr evaluation for now. - cont lasix 40 po qd for maintenance CAD - s/p lad, rca angioplasty/atherectomy 08/2012 with restenosis after 3 months -- > stent to lad 11/2012 with residual dz (70-80% ostial RCA) - intervention deferred b/c pt with acute agitation during cath - CE's neg x 1 04/24. No repeat obtained. EKG without acute ischemic changes. No anginal sx's. -con't asa, toprol, atorvastatin, (on pravastatin 10 mg 5 days a week as outpatient) h/o PMVT/torsades now s/p ICD ([employer]), no prior shocks. - recent outpatient ICD check 03/2017 without significant arrhythmia (chronic afib, nsvt x 1) and with normal function. HTN -stable, meds as above. mod dil ao root (4.1cm) - con't bb cardiac bennett stable, dc tele
--- NOTE | 2017-04-30 11:48 | PN ---
Progress Note (short form) - Note Progress Note: seen and examined in room lasix resumed today no SOB / less coughing remains afebrile Vital Signs Period Temp Pulse Resp BP Sys/Fox Pulse Ox Last 24 Hr 97.3 F-98.0 F 72-87 16-20 93-146/51-82 94-94 neck supple heart irreg S1/S2 +SM lungs grossly clear after coughing abd soft non tender ext no edema appreciate Cardio follow up probable d/c in am # mechanical fall poor recall ? syncope / Altered MS + orthostatic volume depletion on admission --- due to meds ? appreciate Cardio follow up request PT evaluation # cough ?URI guafenesin CXR neg for acute findings # Afib rate controlled on BB ( well tolerated) not on a/c 2/2 to epistaxis no hx of CVA # if syncope ?? cause --if so ...TAVR ?? patient know to decline invasive procedures # HFpEF / with valvular Dz lasix adjusted as out patient on admission found to be orthostatic Lasix on hold -- now resumed today with improved BS - --CXR neg for CHF # CAD No evidence of ACS TNI neg on admission / no EKG changes documented no CP/Dyspnea/or other anginal Sx # HTN stable continue meds # elevated Bili DX [place]' # heme thrombocytopenia / hemolytic anemia followed at [place] # hx of ICD recently interrogated -- no significant arrhythmias per cardio Problem List - Problems (1) Accident due to mechanical fall without injury Code(s): W19.XXXA - UNSPECIFIED FALL, INITIAL ENCOUNTER (2) Syncope and collapse Code(s): R55 - SYNCOPE AND COLLAPSE (3) Generalized weakness Code(s): R53.1 - WEAKNESS (4) (HFpEF) heart failure with preserved ejection fraction Code(s): I50.30 - UNSPECIFIED DIASTOLIC (CONGESTIVE) HEART FAILURE (5) Clavicle fracture Code(s): S42.009A - FRACTURE OF UNSP PART OF UNSP CLAVICLE, INIT FOR CLOS FX Qualifiers: Encounter type: initial encounter Fracture type: closed Laterality: left (6) Pulmonary HTN Code(s): I27.20 - PULMONARY HYPERTENSION, UNSPECIFIED (7) Afib Code(s): I48.91 - UNSPECIFIED ATRIAL FIBRILLATION (8) Dementia Code(s): F03.90 - UNSPECIFIED DEMENTIA WITHOUT BEHAVIORAL DISTURBANCE (9) Near syncope Code(s): R55 - SYNCOPE AND COLLAPSE (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
[2017-04-30 19:20] VITALS: BP 132/85; PULSE 103; TEMP 97.9
--- NOTE | 2017-05-03 10:44 | CONS ---
DATE OF CONSULTATION: 04/30/2017 REFERRING PHYSICIAN: Cindy Morejon MD HISTORY OF PRESENT ILLNESS: The patient is an 87-year-old man with past medical history of multiple cardiac conditions, including coronary artery disease, status post stent, atrial fibrillation, as well as defibrillator implant, pulmonary hypertension and hemolytic anemia, who was admitted following multiple falls. Patient states about a week prior to admission he suffered a fall after losing his balance. He suffered no injury in the 1st fall. The 2nd time he states he was reaching for something in a kitchen cabinet and may have had some lightheadedness or further dizziness and fell, suffering injuries to the left side of his face as well as his left shoulder. On admission, he underwent a CT of the head which showed no evidence of acute intracranial pathology. There was some sinusitis and small-vessel disease noted inadvertently. Patient also underwent x-rays of the clavicle on April 24 which showed an old healed deformity of the left clavicle and a chest x-ray which showed some degenerative changes in the spine, but no acute pathology was noted. Patient is undergoing cardiology consult as well as neurologic evaluation for possible syncopal episode. His medication was adjusted and overall he feels fairly well. He has a little bit of discomfort in his left shoulder but notes that this is improved. Patient was seen by Physical Therapy and able to ambulate approximately 50 feet with a rolling walker. He required minimal assist for transfers and close contact guard for ambulation. Patient apparently resides in assisted living. Blood work last done on April 29 showed normal WBCs of 8.5, hemoglobin stable and normal for age at 11.0, platelet count 282. INR 1.58 on April 24. The patient had a chemistry which was mainly normal with borderline to slight elevation in chloride of 110. Albumin normal, 3.4, throughout his hospital course. TSH was borderline to slightly low at 3.44. Troponin negative. REVIEW OF PAST MEDICAL AND SURGICAL HISTORY: Atrial fibrillation, coronary artery disease, status post stent, hypertension, defibrillator implant, hypothyroidism, hemolytic anemia, pulmonary hypertension, elevated bilirubin due to Gilbert disease, as well as a history of mild dementia, left clavicle fracture (old). SOCIAL HISTORY: As above, lives in assisted living. Required some assistance for bathing and dressing at times, but mainly he was independent, ambulated with a walker. Current function as above. REVIEW OF SYSTEMS: He has no current headache, lightheadedness, dizziness. He has chronic problems with vision in his left eye but no acute blurry vision or double vision. No nausea, vomiting, difficulty swallowing, difficulty chewing. No chest pain, shortness of breath at rest. He may get dyspneic with exertion. No abdominal discomfort. No bowel, bladder complaints. No fever, chills. He has pain in the left shoulder but no other joint arthralgias. Patient has no numbness, tingling. No back or neck pain. PHYSICAL EXAMINATION: General: Patient is a friendly elderly man seen lying in bed. He is awake and cooperative, in no acute distress. HEENT: He is normocephalic and atraumatic. No bruising over the left side of his face. Normal extraocular muscles. No facial weakness. Neck: Supple. Extremities: Without any pitting edema, calf tenderness. Skin: Without any rash or breakdown. No ecchymosis over the left shoulder or breakdown. Neuromuscular: Patient is awake, alert. He did not know the exact day, but he knew the month, he knew the year, he knew that he was in and seemed to have fairly good insight into his medical conditions. His cranial nerves: He has a little bit of loss of vision, left more than right eye, but otherwise II-XII grossly intact. He has fairly good range of motion throughout the upper extremities. Mild arthritic changes which are nonrestrictive in his hands. He has mild weakness in the left shoulder due to discomfort, mild tenderness, but there is no swelling or joint effusion. Mild crepitus. In the lower extremities, good internal and external rotation in the hip girdle, good knee flexion and extension, good dorsiflexion and plantarflexion, all full range of motion and at least 4+/5 proximal strength, 5/5 distal strength. Normal sensation to light touch and symmetric reflexes throughout the upper and lower extremities. He has downgoing toes bilaterally and no advanced osteo degenerative changes in the lower extremities. Unable to assess his gait. No assistive device, but he performs bed mobility with minimal assist. OVERALL IMPRESSION: 1. Deficits of mobility, activities of daily living. 2. Status post falls. 3. Gait disorder.4. Possible syncopal episode. 5. Left shoulder pain, probable contusion, history of an old left clavicular fracture. 6. History of atrial fibrillation, coronary artery disease, status post stent. 7. History of defibrillator. 8. History of hemolytic anemia. 9. Hypertension. 10. Hyperlipidemia. 11. Elevated risk for deep venous thrombosis due to immobility. PLAN/SUGGESTION: 1. Physical therapy to continue at the bedside. 2. Out of bed to chair with assistance. 3. Patient has SCDs for DVT prophylaxis. 4. Apparently not a candidate for anticoagulation due to multiple falls. 5. Skin precautions, avoid heel/sacral pressure, monitor for breakdown or erythema. 6. Bowel regimen, monitor for constipation. 7. Consider short-term rehabilitation versus return to assisted living based on the availability of help, his length of hospitalization and patient's ability to ambulate with physical therapy. 8. Monitor left shoulder but apparently healing well. Thank you very much for this referral. NOLA PATEL M.D. [id number]
== END 2017-04-30 20:22 | DRG 306 ==
LOC: JER 19:47 → UNDOADMOB 22:52 → JERBED 22:52 → J4S 04-25 03:57 → JERBED 04-25 03:57 → J4S 04-25 21:48 → JERBED 04-25 21:48 → J4S 04-25 21:51 → OBSVTOIN 04-27 19:00 → INTOOBSV 04-27 19:00 → OBSVTOIN 04-29 14:30
PROVIDERS: ADMIT Family Medicine; ATTEND Family Medicine
DX: I35.0 Nonrheumatic aortic (valve) stenosis (principal); E43 Unspecified severe protein-calorie malnutrition; R64 Cachexia; D58.9 Hereditary hemolytic anemia, unspecified; I50.30 Unspecified diastolic (congestive) heart failure; R55 Syncope and collapse; E78.5 Hyperlipidemia, unspecified; I34.0 Nonrheumatic mitral (valve) insufficiency; E03.9 Hypothyroidism, unspecified; D69.6 Thrombocytopenia, unspecified; I48.91 Unspecified atrial fibrillation; I25.10 Atherosclerotic heart disease of native coronary artery without angina pectoris; Z68.22 Body mass index [BMI] 22.0-22.9, adult; Z98.61 Coronary angioplasty status; F03.90 Unspecified dementia, unspecified severity, without behavioral disturbance, psychotic disturbance, mood disturbance, and anxiety; I27.20 Pulmonary hypertension, unspecified; E80.4 Gilbert syndrome; N40.0 Benign prostatic hyperplasia without lower urinary tract symptoms; I11.0 Hypertensive heart disease with heart failure
CPT/HCPCS: 36415; 70450-TC; 71020-TC; 71045-TC; 73000-TC-LT; 80048; 80053; 81003; 81015; 82550; 83735; 84100; 84443; 84484; 85025; 85027; 85610; 93005; 93010; 97116-GP; 97162-GP; 99283-25; G0378